=== PATIENT | male | born 1980 | race Caucasian/White ===

== ENCOUNTER 2021-05-21 08:12 | Outpatient (REF) | payer OTHER, SELFPAY ==
[2021-05-21 08:59] LABS: MANUAL DIFF FLAG NO
[2021-05-21 09:12] LABS: Basophils Percent Auto 0.7 % (0-2); Eosinophils Absolute Auto 0.2 X10*3/uL (0.0-0.4); Eosinophils Percent Auto 4.2 % (0-4); Hematocrit 42.5 % (42-52); Hemoglobin 14.2 g/dl (14.0-18.0); Imm Gran Abs Auto 0.01 X10*3/uL (0.00-0.03); Imm Gran Pct Auto 0.2 % (0.0-0.4); Lymphocytes Absolute Auto 1.4 X10*3/uL (1.2-4.9); Lymphocytes Percent Auto 32.1 % (20-40); Mean Corpuscular HGB Conc 33.4 g/dl (31.0-36.0); Mean Corpuscular Hemoglobin 29.3 pg (27.0-33.0); Mean Corpuscular Volume 87.6 fL (80-98); Mean Platelet Volume 9.9 fL (9.4-12.4); Monocytes Absolute Auto 0.4 X10*3/uL (0.1-1.2); Monocytes Percent Auto 9.4 % (2-11); Neutrophils Absolute Auto 2.4 X10*3/uL (2.0-8.3); Neutrophils Percent Auto 53.4 % (45-73); Platelet Count 198 X10*3/uL (160-400); Red Blood Count 4.85 X10*6/uL (4.60-5.80); Red Cell Distribution Width 12.2 % (11.0-16.0); White Blood Count 4.5 X10*3/uL (4.8-10.8)
[2021-05-21 09:27] LABS: Alanine Aminotransferase 16 U/L (0-40); Albumin Level 4.2 g/dL (3.5-5.0); Alkaline Phosphatase 44 U/L (39-117); Anion Gap 13 (12-20); Aspartate Amino Transferase 27 U/L (5-37); Blood Urea Nitrogen 18 mg/dL (9-16); Calcium 9.1 mg/dL (8.4-10.2); Carbon Dioxide 27 mmol/L (22-29); Chloride 104 mmol/L (96-108); Cholesterol 191 mg/dL; Estimated Glomerular Filt Rate > 60; Glucose Random 93 mg/dL (60-115); HDL Cholesterol 59 mg/dL; LDL Cholesterol Calculated 119 mg/dl; Potassium 4.7 mmol/L (3.3-5.1); Sodium 139 mmol/L (135-145); Total Protein 7.1 g/dL (6.5-8.0); Triglycerides 67 mg/dL
[2021-05-21 09:51] LABS: Prostate Specific Antigen 0.21 ng/mL (<0.05-4.0)
[2021-05-21 09:53] LABS: Reflex LDLD? No; TSH reflex Free T4 1.33 uIU/mL (0.32-4.0)
== END 2021-05-21 08:13 | disposition home or self-care (01) ==
LOC: HO.LAB 08:12
PROVIDERS: PCP Internal Medicine; Visit Provider Internal Medicine
DX: Z00.00 Encounter for general adult medical examination without abnormal findings (principal); Z12.5 Encounter for screening for malignant neoplasm of prostate
CPT/HCPCS: 36415; 80053; 80061; 84153; 84443; 85025

== ENCOUNTER → 2021-08-16 09:22 | Outpatient (REF) | payer OTHER, SELFPAY ==
--- NOTE | 2021-08-16 09:30 | CA_ITS ---
Transthoracic Echocardiogram Patient (Last, First, Middle): Eugene Guerrero F Gender: Male Date of : 1980 Age: 41 Procedure Date: 08/16/2021 Procedure Type: Transthoracic Echocardiogram Location: OP Height: 170.18 cm Weight: 76.2 kg BSA: 1.88 m2 Heart Rate: bpm BP: 120 / 80 mmHg Operational Risk Consultant: SANTA Referring MD: Chaka Gutierres III, MD Symptoms: J90 RT PLURAL EFFUSION R50.9 FEVER. GARCIA R06.00 Study Quality: Good ECG Rhythm: Sinus Conclusions: - The left ventricular systolic function is normal. The calculated ejection fraction is 61% by biplane method. - LV peak global longitudinal strain -16.4% (mildly reduced). - No obvious valvular pathology seen on this study. - There is no evidence of interatrial shunt by agitated saline. Findings Left Ventricle Normal left ventricular cavity size. There is normal left ventricular wall thickness. The left ventricular systolic function is normal. The calculated ejection fraction is 61% by biplane method. There is no evidence of regional wall motion abnormalities. Diastolic function is normal for age. LV peak global longitudinal strain -16.4% (mildly reduced). Right Ventricle Normal right ventricular cavity size and systolic function. Atria Both atria are normal in size. There is no evidence of interatrial shunt by agitated saline. Aortic Valve There is a normal trileaflet aortic valve. There is no aortic valve stenosis. There is no aortic valve regurgitation. Mitral Valve The mitral valve appears normal. There is trace mitral valve regurgitation. There is no mitral valve stenosis. Pulmonic Valve The pulmonic valve was not well visualized. Tricuspid Valve Normal tricuspid valve structure. There is trace tricuspid valve regurgitation. The pulmonary artery systolic pressure is normal. Great Vessels The aortic annulus, sinuses of valsalva, and asc aorta are normal in size. Venous The inferior vena cava is normal in size and collapses greater than 50% with inspiration. Pericardium/Pleural There is no evidence of pericardial effusion. Prior Study Comparison No prior study available for comparison. Recommendations, Care & Conclusions No obvious valvular pathology seen on this study. Measurements 2D Linear Measurements IVSd: 0.96 0.6-0.9/0.6-1.0 cm LVIDd: 4.98 3.9-5.3/4.2-5.9 cm LVIDd Index: 2.65 2.4-3.2/2.2-3.1 cm/m2 LVIDs: 3.33 2.0-3.6 cm LVPWd: 0.88 0.7-1.1 cm Ao Root: 3.60 2.1-3.5 cm LA Diam: 3.30 2.7-3.8/3.0-4.0 cm LAIDs Index: 1.76 1.5-2.3 cm/m2 LV Mass: 202.18 67-162/88-224 g LV Mass Index: 107.54 43-95/49-115 g/m2 LVOT Diam: 2.50 3.0+(-)1.3 cm 2D Systolic Function EF 4C: 59.50 >55% EF 2C: 60.60 >55% EF BiP: 61.10 >55% Mitral Valve MV Pk E: 0.84 MV PK A: 0.47 MV Decel Time: 240.00 E/A: 1.80 E'Lateral: 13.70 E'Medial: 9.25 E/E' Med: 9.00 E/E' Lat: 6.10 PHT: 70.00 MVA PHT: 3.14 Decel Mingo: 3.49 Aortic Valve AoV Pk Tristen: 1.19 AoV Mn Tristen: 0.81 AoV VTI: 0.24 AoV Pk Grad: 6.00 Aov Mn Grad: 3.00 RINA Cont.VTI: 4.40 LVOT LVOT Pk Tristen: 1.13 LVOT Mn Tristen: 0.74 LVOT VTI: 0.21 LVOT Pk Grad: 5.00 LVOT Mn Grad: 3.00 LVOT Diam: 2.50 LVOT Area: 4.91 Diastolic Function MV Pk E: 0.84 MV Pk A: 0.47 E/A: 1.80 E'Medial: 9.25 E/E' Med: 9.00 E' Laterial: 13.70 E/E' Lat: 6.10 Right Ventricle TAPSE (mm): 3.17 TVS' Tristen: 13.30 Tricuspid Valve TR Pk Tristen: 1.93 TR Pk Grad: 15.00 RA Press: 3.00 RVSP: 18.00 Great Vessels Aorta Ao Root-2D: 3.60 2.0-3.7 cm Ao Asc: 3.00 2.1-3.4 cm Ao Arch: 2.70 Updated in Other Vendor System with Status of Final Miguel Hudson MD electronically signed on 08/16/2021 1:43:32 PM with status of Final
== END ==
LOC: HO.CARD 09:22
PROVIDERS: Visit Provider Internal Medicine
DX: R06.00 Dyspnea, unspecified (principal); R50.9 Fever, unspecified; R21 Rash and other nonspecific skin eruption; J90 Pleural effusion, not elsewhere classified; L03.113 Cellulitis of right upper limb
CPT/HCPCS: 93306

== ENCOUNTER 2021-11-05 13:58 | Outpatient (REF) | payer OTHER, SELFPAY ==
--- NOTE | ~2021-11-05 | XR_ITS ---
EXAMINATION: XR CHEST CLINICAL INFORMATION: Evaluation for pleural effusion. COMPARISON: 09/13/2021 chest radiograph TECHNIQUE: 2 views of the chest were obtained. FINDINGS: Lungs grossly clear. Heart and pulmonary vessels are normal. There is very minimal residual blunting of the right costophrenic sulcus, which appears slightly improved. I suspect this reflects some residual pleural thickening. XR/XR chest 2V IMPRESSION: No significant effusion on today's study. I suspect there is been slight improvement from 09/13/2021 exam.
== END 2021-11-05 13:59 | disposition home or self-care (01) ==
LOC: HO.XRAY 13:58
PROVIDERS: PCP Internal Medicine; Visit Provider Internal Medicine
DX: J90 Pleural effusion, not elsewhere classified (principal); Z88.6 Allergy status to analgesic agent
CPT/HCPCS: 71046

== ENCOUNTER 2022-06-04 08:04 | Outpatient (REF) | payer OTHER, SELFPAY ==
[2022-06-04 08:20] LABS: MANUAL DIFF FLAG NO
[2022-06-04 08:27] LABS: Basophils Percent Auto 0.8 % (0-2); Eosinophils Absolute Auto 0.3 X10*3/uL (0.0-0.4); Eosinophils Percent Auto 6.2 % (0-4); Hemoglobin 14.1 g/dl (14.0-18.0); Imm Gran Abs Auto 0.01 X10*3/uL (0.00-0.03); Imm Gran Pct Auto 0.2 % (0.0-0.4); Lymphocytes Absolute Auto 1.8 X10*3/uL (1.2-4.9); Lymphocytes Percent Auto 35.9 % (20-40); Mean Corpuscular HGB Conc 33.6 g/dl (31.0-36.0); Mean Corpuscular Hemoglobin 29.1 pg (27.0-33.0); Mean Corpuscular Volume 86.6 fL (80.0-98.0); Mean Platelet Volume 9.9 fL (9.4-12.4); Monocytes Absolute Auto 0.4 X10*3/uL (0.1-1.2); Monocytes Percent Auto 8.6 % (2-11); Neutrophils Absolute Auto 2.4 x10*3/uL (2.0-8.3); Neutrophils Percent Auto 48.3 % (45-73); Platelet Count 187 X10*3/uL (160-400); Red Blood Count 4.85 X10*6/uL (4.60-5.80); Red Cell Distribution Width 12.9 % (11.0-16.0)
[2022-06-04 08:54] LABS: Alanine Aminotransferase 14 U/L (0-40); Albumin Level 4.2 g/dL (3.5-5.0); Alkaline Phosphatase 44 U/L (39-117); Anion Gap 10 (12-20); Aspartate Amino Transferase 21 U/L (5-37); Bilirubin Total 0.7 mg/dL (0.0-1.0); Blood Urea Nitrogen 17 mg/dL (9-16); Calcium 8.9 mg/dL (8.4-10.2); Carbon Dioxide 29 mmol/L (22-29); Chloride 105 mmol/L (96-108); Cholesterol 208 mg/dL; Estimated Glomerular Filt Rate > 60; Glucose Random 96 mg/dL (60-115); HDL Cholesterol 52 mg/dL; LDL Cholesterol Calculated 138 mg/dl; Potassium 4.9 mmol/L (3.3-5.1); Sodium 139 mmol/L (135-145); Total Protein 7.2 g/dL (6.5-8.0); Triglycerides 93 mg/dL
[2022-06-04 08:59] LABS: Reflex LDLD? No
[2022-06-04 09:07] LABS: TSH reflex Free T4 1.73 uIU/mL (0.32-4.0)
== END 2022-06-04 08:05 | disposition home or self-care (01) ==
LOC: HO.LAB 08:04
PROVIDERS: PCP Internal Medicine; Visit Provider Internal Medicine
DX: Z00.00 Encounter for general adult medical examination without abnormal findings (principal); Z12.5 Encounter for screening for malignant neoplasm of prostate
CPT/HCPCS: 36415; 80053; 80061; 84153; 84443; 85025

== ENCOUNTER 2022-07-10 10:16 | Outpatient (REF) | payer OTHER, SELFPAY ==
--- NOTE | ~2022-07-10 | XR_ITS ---
EXAMINATION: XR CHEST CLINICAL INFORMATION: Previous chest x-ray most recent October 2021 COMPARISON: None TECHNIQUE: 2 views of the chest were obtained. FINDINGS: No significant abnormality is noted involving the heart, lungs, mediastinum, bony thorax or soft tissues. XR/XR chest 2V IMPRESSION: Unremarkable examination.
== END 2022-07-10 10:17 | disposition home or self-care (01) ==
LOC: HO.XRAY 10:16
PROVIDERS: PCP Internal Medicine; Visit Provider Internal Medicine
DX: R09.89 Other specified symptoms and signs involving the circulatory and respiratory systems (principal)
CPT/HCPCS: 71046

== ENCOUNTER 2023-08-08 07:50 | Outpatient (REF) | payer OTHER, SELFPAY ==
[2023-08-08 08:20] LABS: MANUAL DIFF FLAG NO
[2023-08-08 08:52] LABS: Basophils Absolute Auto 0.1 X10*3/uL (0.0-0.2); Eosinophils Absolute Auto 0.4 X10*3/uL (0.0-0.4); Eosinophils Percent Auto 8.2 % (0-4); Hematocrit 44.3 % (42.0-52.0); Hemoglobin 14.7 g/dl (14.0-18.0); Imm Gran Abs Auto 0.01 X10*3/uL (0.00-0.03); Imm Gran Pct Auto 0.2 % (0.0-0.4); Lymphocytes Absolute Auto 1.5 X10*3/uL (1.2-4.9); Lymphocytes Percent Auto 30.8 % (20-40); Mean Corpuscular HGB Conc 33.2 g/dl (31.0-36.0); Mean Corpuscular Hemoglobin 29.3 pg (27.0-33.0); Mean Corpuscular Volume 88.4 fL (80.0-98.0); Monocytes Absolute Auto 0.4 X10*3/uL (0.1-1.2); Neutrophils Absolute Auto 2.6 x10*3/uL (2.0-8.3); Neutrophils Percent Auto 51.8 % (45-73); Platelet Count 217 X10*3/uL (160-400); Red Blood Count 5.01 X10*6/uL (4.60-5.80); Red Cell Distribution Width 12.7 % (11.0-16.0)
[2023-08-08 09:27] LABS: Cholesterol 204 mg/dL (<200); HDL Cholesterol 53 mg/dL (>40); LDL Cholesterol Calculated 135 mg/dL (<100); Triglycerides 80 mg/dL (<150)
[2023-08-08 09:31] LABS: Reflex LDLD? No
[2023-08-08 09:34] LABS: Alanine Aminotransferase 13 U/L (0-40); Albumin Level 4.2 g/dL (3.5-5.0); Alkaline Phosphatase 44 U/L (39-117); Anion Gap 17 (12-20); Aspartate Amino Transferase 25 U/L (5-37); Bilirubin Total 0.3 mg/dL (0.0-1.0); Blood Urea Nitrogen 19 mg/dL (9-16); Calcium 9.5 mg/dL (8.4-10.2); Carbon Dioxide 24 mmol/L (22-29); Chloride 105 mmol/L (96-108); Estimated Glomerular Filt Rate > 60; Glucose Random 87 mg/dL (60-115); Sodium 141 mmol/L (135-145); Total Protein 7.5 g/dL (6.5-8.0)
[2023-08-08 09:38] LABS: TSH reflex Free T4 2.01 uIU/mL (0.32-4.0)
[2023-08-08 09:46] LABS: Prostate Specific Antigen 0.23 ng/mL (<0.05-4.0)
== END 2023-08-08 07:51 | disposition home or self-care (01) ==
LOC: HO.LAB 07:50
PROVIDERS: PCP Internal Medicine; Visit Provider Internal Medicine
DX: Z00.00 Encounter for general adult medical examination without abnormal findings (principal); Z12.5 Encounter for screening for malignant neoplasm of prostate
CPT/HCPCS: 36415; 80053; 80061; 84153; 84443; 85025

== ENCOUNTER 2023-08-15 13:14 | Emergency (ER) | payer OTHER, SELFPAY ==
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
[2023-08-15 13:33] VITALS: BP 126/74; PULSE 77; RESP 16; TEMP 37.2; O2SAT 97; BMI 28.5
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
== END 2023-08-15 15:01 | disposition home or self-care (01) ==
PROVIDERS: Emergency Provider Emergency Medicine; PCP Internal Medicine
DX: S02.2XXA Fracture of nasal bones, initial encounter for closed fracture (principal); S01.21XA Laceration without foreign body of nose, initial encounter; W22.8XXA Striking against or struck by other objects, initial encounter; Y93.53 Activity, golf; Y92.39 Other specified sports and athletic area as the place of occurrence of the external cause; Y99.9 Unspecified external cause status
CPT/HCPCS: 70450; 70486; 99283; 99284

== ENCOUNTER 2023-09-29 09:51 | Outpatient (AMB) | payer OTHER, SELFPAY ==
[2023-09-29 09:55] VITALS: BP 144/77; PULSE 62; BMI 29.5
--- NOTE | 2023-09-29 09:55 | A.OFFVIS_ITS ---
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 Pt states he started having symptoms Wednesday 09/26. Pt states he feels like he always needs to defecate. Pt states even after he uses the bathroom he still feels like he needs to defecate more but doesnt. Pt denies any abdominal pain, nausea,vomiting, or diarrhea. 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 HPI Details 43 yr old patient being seen for assessm ent for acute symptoms He has tightness and pain when passing stool going on for last several days rectal pressure noted, squeezing as well stool seems more dry than normal, harder than normal, but nml size no blood in stool bowel frequency a little different as well no nausea or vomiting no weight loss he is on doxycycline for skin infection father had CRC aged 50 , and he had colonoscopy aged 39 whihc was normal PMH: plerual effusion PSH: decortication of lung, colonoscopy 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, 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, no drugs, no alcohol FH: father with CRC and heart disease ROS: Constitutional : No Weight loss, No Fever, No Chills ENT/Mouth : No sore throat, No Rhinorrhea Eyes: No Swelling, No Redness Cardiovascular : No Chest Pain, No SOB, No Edema Respiratory : No Cough, No Sputum, No Wheezing Gastrointestinal : see HPI Genitourinary : NO Dysuria, No Urinary Frequency, No Hematuria, No Urgency Musculoskeletal : No joint pain, No Myalgias, No Joint Swelling Skin : No Skin Lesions, No rash Neuro : No Weakness, No Numbness, No Dizziness, No Headache Psych : No Anxiety/Panic, No Depression Heme/Lymph: No Bruising, No Lymphadenopathy Endocrine : No Polyuria, No Polydipsia All other systems reviewed and are negative. EXAM: GENERAL: The patient is well developed and nontoxic. VITAL SIGNS:see workflow HEENT: Nonicteric sclerae, PERRLA, EOMI. Oropharynx clear. Moist mucous membranes. Conjunctivae appear well perfused. No thyroid mass. CHEST: Chest wall is nontender. HEART: Regular rate and rhythm without murmurs. LUNGS: Clear to auscultation bilaterally. ABDOMEN: Soft, positive bowel sounds, nontender, no organomegaly.no flank tenderness SKIN: No rash, no excessive bruising, petechiae, or purpura. NEUROLOGIC: Cranial nerves II-XII intact without motor/sensory deficit. Psych; nml A/P: 1/ Tenesmus and altered bowel habit, FH of CRC ddx; low lying rectal lesion, anal fissure, proctitis Plan: 1/ Labs recent in Jul were normal, but given FH recommend colonoscopy,--send [facility] Surgical History (Updated 09/29/23 @ 10:03 by Bri Mckeon MA) Hx of colonoscopy Social History (Updated 09/29/23 @ 09:59 by Bri Mckeon MA) Household Members: Family Housing: House Alcohol intake: current Alcohol intake frequency: 0-2 drinks per day Alcohol ty pe: beer Patient Tobacco Use Status: Never used Tobacco Use of substances other than those prescribed or required for medical reasons: Yes Substance Use Type: Marijuana Physical Exam Vital Signs: Last Vital Signs Pulse 62 09/29/23 09:55 BP 144/77 H 09/29/23 09:55 BMI result Body Mass Index 29.5 Assessment & Plan Assessment & Plan (1) Altered bowel habits: Code(s): R19.4 - Change in bowel habit Plan: colonoscopy (2) Tenesmus (rectal): Code(s): R19.8 - Other specified symptoms and signs involving the digestive system and abdomen Plan: colonoscopy Plan colonoscopy Medications: New sodium,potassium,mag sulfates 17.5-3.13-1.6 gram ([facility] Bowel Prep Kit) DILUTE; drink 1/2 at 6-8 pm and half at 11 PM- 1AM 354 mL 0RF Coding Level of Care Code New Pt Level 4 (54791) Diagnoses Altered bowel habits R19.4 Tenesmus (rectal) R19.8
== END 2023-09-29 10:31 | disposition home or self-care (01) ==
PROVIDERS: PCP Internal Medicine; Visit Provider Internal Medicine Gastroenterology
DX: R19.4 Change in bowel habit (principal); R19.8 Other specified symptoms and signs involving the digestive system and abdomen
CPT/HCPCS: 99204

== ENCOUNTER → 2023-09-29 09:51 | Outpatient (BNVA) | payer OTHER, SELFPAY | PROVIDERS: PCP Internal Medicine; Visit Provider Internal Medicine Gastroenterology ==

== ENCOUNTER 2023-10-08 12:03 | Day surgery (SDC) | payer OTHER, SELFPAY ==
--- NOTE | 2023-10-07 09:56 | HO.ANESPROP2 ---
Documented by User: Dina Schumacher NP 10/07/23 09:57 HPI - Anesthesia Eval Consult details Narrative: 43yo M for Colonoscopy PMFSH Active Problems Active Problems: All Active Problems (Updated 09/29/23 @ 10:26 by Marcellus Aparicio MD) Tenesmus (rectal) (Acute) Altered bowel habits (Acute) Surgical History Surgical History Hx of colonoscopy Social History Social History (Updated 09/29/23 @ 09:59 by Bri Mckeon MA) Household Members: Family Housing: House Alcohol intake: current Alcohol intake frequency: 0-2 drinks per day Alcohol type: beer Patient Tobacco Use Status: Never used Tobacco Use of substances other than those prescribed or required for medical reasons: Yes Substance Use Type: Marijuana Substance Use Type Other:: marijuana gummy occas Are you DNR?: No Advance Directives: No Advance Directives Information Provided: Yes Meds Allergies Allergy/AdvReac Type Severity Reaction Status Date / Time hydrocodone Allergy Hives Verified 09/29/23 09:57 Home Medications Medication Instructions Recorded Confirmed Last Taken Type doxycycline monohydrate 100 mg 100 mg PO BID 09/29/23 Unknown History tablet Exam Pertinent Lab Results Pertinent Lab Results: Laboratory Tests 08/08/23 08:19 WBC 5.0 Hgb 14.7 Hct 44.3 Plt Count 217 Sodium 141 Potassium 5.0 Chloride 105 Carbon Dioxide 24 BUN 19 H Creatinine 0.93 Assessment and Plan Assessment Anesthesia Assessment: Chart Reviewed Documented by User: Luc Mcintyre MD 10/08/23 13:08 PMFSH Family History Family history of problems with anesthesia: No Surgical History Surgical History Hx of colonoscopy History of Problems with Anesthesia: No Social History Social History (Updated 09/29/23 @ 09:59 by Bri Mckeon MA) Household Members: Family Housing: House Alcohol intake: current Alcohol intake frequency: 0-2 drinks per day Alcohol type: beer Patient Tobacco Use Status: Never used Tobacco Use of substances other than those prescribed or required for medical reasons: Yes Substance Use Type: Marijuana Substance Use Type Other:: marijuana gummy occas Are you DNR?: No Advance Directives: No Advance Directives Information Provided: Yes Meds Allergies Allergy/AdvReac Type Severity Reaction Status Date / Time hydrocodone Allergy Hives Verified 09/29/23 09:57 Home Medications Medication Instructions Recorded Confirmed Last Taken Type doxycycline monohydrate 100 mg 100 mg PO BID 09/29/23 Unknown History tablet Exam Airway Mallampati Class: II TM Dist: >3cm Neck ROM: Full Assessment and Plan Assessment Anesthesia Assessment: Anesthesia Plan Discussed Final Anesthetic Review Family History of Problems with Anesthesia: No History of Problems with Anesthesia: No NPO: Yes ASA Class: II Final Preanesthetic Review: No Changes in Pt Med Stat, Meds/Allgs Chart Reviewed, Consent Obtained/Reviewed and Anes Risks/Benef Reviewed Patient Risk: Low Procedure Risk: Low Anesthetic Plan Anesthetic Plan: MAC: Disposition: Standard PACU
[2023-10-08 12:52] VITALS: BMI 28.6
--- NOTE | 2023-10-08 12:55 | MHC.SHP ---
Pre-Procedural Eval Section A Date of Service: 10/08/23 The patient is an INPATIENT: No The History & Physical has been completed within 30 days and I have reviewed it.: No Section B Chief Complaint: Other specified symptoms and signs involving the d Allergies: Allergies Allergy/AdvReac Type Severity Reaction Status Date / Time hydrocodone Allergy Hives Verified 09/29/23 09:57 Plan Diagnosis/Plan: Unchanged I have reviewed the history and physical and performed a pertinent physical examination on my patient. No changes have occurred unless specified. Time Spent With Patient Time: Total time managing care of this patient today ____ minutes.
[2023-10-08 12:58] VITALS: BMI 28.6
[2023-10-08 13:29] VITALS: BP 131/78; PULSE 58; RESP 16; TEMP 36.6; O2SAT 99
[2023-10-08] MEDS: Lactated Ringers 1,000 ML 100 ML IVCONT (13:34)
--- NOTE | 2023-10-08 13:50 | P.OP_ITS ---
Operative Note Operative Note Date of Service: 10/08/23 Narrative: Operative Information Procedure Description: Colonoscopy Indication: altered bowel habit Anesthesia: MAC COLONOSCOPY Instrument: Olympus variable stiffness pediatric scope 190L Colonoscopy Monitoring: Vital signs and clinical assessment, continuous EKG monitoring, Pulse oximetry, Carbon Dioxide monitoring and blood pressure monitoring were done throughout the procedure. Colon withdrawal time was 12 minutes. Procedure: The patient was placed in the left lateral decubitis position and pre-procedure medications were administered. After a digital rectal examination of the ano-rectum, the video colonoscope was inserted into the rectum and advanced through the colon to the cecum/TI. The colonoscope was slowly withdrawn in a retrograde panoramic fashion and the colon mucosa was carefully examined including a retroflexed view of the rectum. Findings and interventions are described below. Procedure Difficulty: easy Findings: Terminal Ileum-normal Cecum: 4-5 mm sessile polyp removed with biopsy forcpes Ascending Colon: 6-7 mm sessile polyp removed with cold snare Transverse Colon -normal Descending Colon:normal Sigmoid Colon: normal Rectum: Retroflexion with inflammed moderate sized internal hemorrhoids, grade I Anorectum - normal Colon preparation: Griffin Bowel Preparation Scale Right colon; 3 Transverse colon: 3 Left colon; 3 (0 = Unprepared colon segment with mucosa not seen due to solid stool that cannot be cleared. 1 = Portion of mucosa of the colon segment seen, but other areas of the colon segment not well seen due to staining, residual stool and/or opaque liquid. 2 = Minor amount of residual staining, small fragments of stool and/or opaque liquid, but mucosa of colon segment seen well. 3 = Entire mucosa of colon segment seen well with no residual staining, small fr agments of stool or opaque liquid) Impression and Post Procedure Diagnosis: polyps internal hemorrhoids Plan: High fiber diet leaflet Avoid straining at stool, epsom salts and sitz bath, anusol supps or cream Repeat Colonoscopy in 5 years due to polyps and FH of CRC or earlier if clinically indicated Above findings were reviewed with the patient and relevant handouts were provided if indicated.
[2023-10-08 14:30] VITALS: BP 108/63; PULSE 76; RESP 16; TEMP 37; O2SAT 98
[2023-10-08 14:45] VITALS: BP 119/71; PULSE 71; RESP 18; TEMP 37; O2SAT 97
== END 2023-10-08 15:07 | disposition home or self-care (01) ==
PROVIDERS: PCP Internal Medicine; Visit Provider Internal Medicine Gastroenterology
PROC: 0DJD8ZZ Inspection of Lower Intestinal Tract, Via Natural or Artificial Opening Endoscopic (ICD-10-PCS; CPT 45378; principal; 2023-10-08 13:50)
DX: D12.0 Benign neoplasm of cecum (principal); D12.2 Benign neoplasm of ascending colon; K64.0 First degree hemorrhoids; R19.4 Change in bowel habit; R19.8 Other specified symptoms and signs involving the digestive system and abdomen; F12.90 Cannabis use, unspecified, uncomplicated
CPT/HCPCS: 45385; 45380; 88305; J2704

== ENCOUNTER → 2023-10-08 12:03 | Outpatient (BNV) | payer OTHER, SELFPAY | PROVIDERS: PCP Internal Medicine; Visit Provider Internal Medicine Gastroenterology | DX: R19.4 Change in bowel habit (principal); D12.0 Benign neoplasm of cecum; D12.2 Benign neoplasm of ascending colon; K64.0 First degree hemorrhoids | CPT/HCPCS: 45380; 45385 ==

== ENCOUNTER 2023-11-11 10:18 | Emergency (ER) | payer OTHER, SELFPAY ==
--- NOTE | ~2023-11-11 | XR_ITS ---
EXAMINATION: XR CHEST CLINICAL INFORMATION: Chest pain. COMPARISON: July 10, 2022 TECHNIQUE: PA and lateral chest. FINDINGS: There is a stable opacity seen at the right lung base which may be related to some pleural-parenchymal scarring. There remains some blunting of the right costophrenic angle also likely related to pleural-parenchymal disease with no significant effusion identified. Heart normal size. No evidence of pulmonary edema. No pneumothorax. XR/XR chest 2V IMPRESSION: No acute disease.
--- NOTE | 2023-11-11 10:30 | ECG_ITS ---
Test Reason : cp Blood Pressure : / mmHG Vent. Rate : 054 BPM Atrial Rate : 054 BPM P-R Int : 144 ms QRS Dur : 108 ms QT Int : 404 ms P-R-T Axes : 027 043 030 degrees QTc Int : 383 ms Sinus bradycardia Otherwise normal ECG No previous ECGs available Referred By: Generic ED Physician Electronically Signed By:Woody Beckwith
[2023-11-11 11:10] VITALS: BP 135/88; PULSE 60; RESP 18; TEMP 36.7; O2SAT 97; BMI 30.8
--- NOTE | 2023-11-11 11:10 | ED.GENADULT ---
HPI - General Adult General Chief complaint: Chest Pain Stated complaint: Chest tightness 1 wk/headache Time Seen by Provider: 11/11/23 13:57 Source: patient Mode of arrival: ambulatory Limitations: no limitations History of Present Illness HPI narrative: This is a 43-year-old male presenting to the emergency department with complaints of chest discomfort in the substernal region, nonradiating, reports this started on , that day he also had nausea and vomiting in just did not feel well. Has also been having intermittent mild headaches, without visual disturbances, dizziness or weakness. Patient reports both the chest discomfort and headaches are intermittent in nature not constant. Denies sick contacts. Denies shortness of breath, nausea, vomiting, abdominal pain, diarrhea, visual disturbances, dizziness and weakness at this time. NIH stroke scale 0. Related Data Home Medications Medication Instructions Recorded Confirmed doxycycline monohydrate 100 mg 100 mg PO BID 09/29/23 tablet Previous Rx's Medication Instructions Recorded sodium,potassium,mag sulfates 17.5 See Rx Instructions PO .COMPLEX 09/29/23 gram-3.13 gram-1.6 gram oral soln #354 mL (Suprep Bowel Prep Kit) ketorolac 10 mg tablet 10 mg PO TID PRN pain 5 days #15 11/11/23 tabs Allergies Allergy/AdvReac Type Severity Reaction Status Date / Time hydrocodone Allergy Hives Verified 09/29/23 09:57 Review of Systems Review of Systems: Constitutional : No Weight loss, No Fever, No Chills, No Fatigue, No Malaise ENT/Mouth : No sore throat, No Rhinorrhea Eyes: No Eye Pain, No Swelling, No Redness Cardiovascular : + Chest Pain, No SOB, No Dyspnea on Exertion, No Orthopnea, No Edema, No Palpitations Respiratory : No Cough, No Sputum, No Wheezing Gastrointestinal : No Nausea, No Vomiting, No Diarrhea, No Constipation, No abdominal Pain, No Hematochezia, No Melena Genitourinary : No Dysuria, No Urinary Frequency, No Hematuria, Musculoskeletal : No joint pain, No Myalgias, No Joint Swelling Skin : No Skin Lesions, No rash Neuro : No Weakness, No Numbness, No Dizziness, No Headache Psych : No Anxiety/Panic, No Depression All other systems reviewed and are negative Yes all other systems are reviewed and are negative PMFSH Past Medical History Onset Date is defined in the Problem List Problems that require an onset date and time if occurred within 24 hrs of arrival to the ED Aortic Dissection and Rupture; Neurologic impairment; Cardiopulmonary Arrest; Endotracheal Intubation; Insertion or Replacement of Mechanical Circulatory Assist Device Surgical History Hx of colonoscopy Social History Social History (Updated 09/29/23 @ 09:59 by Bri Mckeon MA) Household Members: Family Housing: House Alcohol intake: current Alcohol intake frequency: 0-2 drinks per day Alcohol type: beer Patient Tobacco Use Status: Never used Tobacco Substance Use Type: Marijuana Advance Directives: No Physical Exam ED Vital Signs: Vital Signs - 24 hr 11/11/23 11:10 Temperature 98.1 F Pulse Rate 60 Respiratory Rate 18 Blood Pressure 135/88 Pulse Oximetry 97 Oxygen Delivery Method Room Air BMI result Body Mass Index 30.8 Course Course Course Narrative: This is an RME: Additional HPI, ROS, PE not included below will be deferred to primary provider. This is a [id number]-male, with a no medical history, presenting to the emergency department with complaints of chest pain x 1 week. Chest pain is constant. He vomited on sanjana, and next day had chest pain. Had had midsternal chest pain intermittently today. No fevers, cough, SOB. Plan: Labs, EKG, CXR Reevaluation(s) Reevaluation #1: CBC unremarkable appears to be around patient's baseline he has had a leukopenia in the past. Chemistry no acute findings. Troponin negative x2. History and physical exam not consistent with pulmonary embolism, patient is PERC negative. No need for CTA. Flu/COVID/RSV negative. X-ray of chest unremarkable. Educated patient on diagnosis and treatment plan, answered all question, patient verbalizes understanding. At this time patient will be discharged home, advised to return with new or worsening symptoms. Educated on worrisome signs and symptoms and when to return. At this time I feel comfortable discharge home. Time: 15:46 Medical Decision Making Medical Decision Making [facility] Narrative: [id number] 43-year-old male presents with substernal chest pressure/discomfort which started on Day. Physical examination benign. This is likely viral illness versus noncardiac related chest pain. Unlikely ACS, PE, dissection, acute respiratory distress, pneumonia. Plan at this time labs, imaging, viral test. Differential Diagnosis Differential Diagnoses: The differential diagnosis associated with the presentation includes This is likely viral illness versus noncardiac related chest pain. Unlikely ACS, PE, dissection, acute respiratory distress, pneumonia. Admission/Observation Consideration of admission/observation: Escalation of care including admission/observation considered unlikely Lab Data MDM Lab Attestation statement: I reviewed the patient's lab results. 11/11/23 12:06 11/11/23 12:06 Labs: Lab Results 11/11/23 11/11/23 Range/Units 12:06 14:17 WBC 4.7 L (4.8-10.8) X10*3/uL RBC 5.12 (4.60-5.80) X10*6/uL Hgb 15.1 (14.0-18.0) g/dl Hct 44.5 (42.0-52.0) % MCV 86.9 (80.0-98.0) fL MCH 29.5 (27.0-33.0) pg MCHC 33.9 (31.0-36.0) g/dl RDW 12.4 (11.0-16.0) % Plt Count 198 (160-400) X10*3/uL MPV 9.5 (9.4-12.4) fL Immature Gran % (Auto) 0.0 (0.0-0.4) % Neut % (Auto) 65.5 (45-73) % Lymph % (Auto) 24.8 (20-40) % [place] % (Auto) 6.8 (2-11) % Eos % (Auto) 2.3 (0-4) % Baso % (Auto) 0.6 (0-2) % Lymph # (Auto) 1.2 (1.2-4.9) X10*3/uL [place] # (Auto) 0.3 (0.1-1.2) X10*3/uL Eos # (Auto) 0.1 (0.0-0.4) X10*3/uL Baso # (Auto) 0.0 (0.0-0.2) X10*3/uL Abs Immat Gran (auto) 0.00 (0.00-0.03) X10*3/uL Absolute Neuts (auto) 3.1 (2.0-8.3) x10*3/uL Absolute Nucleated RBC 0.000 (0.0-0.012) X10*3/uL Nucleated RBC % (auto) 0.0 (0.0-0.2) /100WBC Sodium 142 (135-145) mmol/L Potassium 4.1 (3.3-5.1) mmol/L Chloride 104 (96-108) mmol/L Carbon Dioxide 29 (22-29) mmol/L Anion Gap 13 (12-20) BUN 12 (9-16) mg/dL Creatinine 0.89 (0.5-1.4) mg/dL Estim Creat Clear Calc 109.2 Estimated GFR > 60 Random Glucose 96 (60-115) mg/dL Calcium 9.3 (8.4-10.2) mg/dL Total Bilirubin 0.6 (0.0-1.0) mg/dL Direct Bilirubin 0.2 (0.0-0.5) mg/dL AST 22 (5-37) U/L ALT 14 (0-40) U/L Alkaline Phosphatase 47 (39-117) U/L Troponin I High Sens 6.1 < 2.7 D (<3.5-35.0) ng/L Total Protein 7.9 (6.5-8.0) g/dL Albumin 4.5 (3.5-5.0) g/dL Influenza Type A (PCR) NEGATIVE (Negative) Influenza Type B (PCR) NEGATIVE (Negative) RSV RNA Qual (PCR) NEGATIVE (Negative) SARS-CoV-2 RNA (RT-PCR) NEGATIVE (Negative) Independent Interpretation I performed an independent interpretation of an: EKG (Ventricular rate of 54, TX normal, QRS normal, QT/QTC normal, EKG sinus bradycardia no ST elevations or inversions concerning for acute ischemia) and Plain X-Ray (XR/XR chest 2V IMPRESSION: No acute disease.) Radiology Impression Discussion of test interpretation with radiology: I have reviewed the radiologist's reading. Discharge Plan Discharge Clinical Impression: Atypical chest pain, Viral illness, Headache Patient Disposition: Home, Self-Care Instructions: Chest Pain (ED), Acute Headache (ED), Viral Syndrome (ED) Additional Instructions: Take your medications as prescribed. If you were prescribed antibiotics today, it is important that you take your medication to their entirety, do not skip any doses, do not finish them early. Follow-up with your primary care provider this week. Return to the emergency department with new or worsening symptoms. Such as fevers, chills, chest pain, shortness of breath, nausea, vomiting, dizziness, headache, vision changes, lethargy In case of emergency call 911 Toradol has been sent to your pharmacy, you tolerated this well in the department. Please take this as prescribed do not take this with ibuprofen, or other NSAIDs, do not mix this with alcohol. Side effects of this medication including increased risk for bleeding and possible kidney injury. Prescriptions: New ketorolac 10 mg tablet 10 mg PO TID PRN (Reason: pain) 5 Days Qty: 15 0RF No Action doxycycline monohydrate 100 mg tablet 100 mg PO BID sodium,potassium,mag sulfates [Suprep Bowel Prep Kit] 17.5-3.13-1.6 gram recon soln See Rx Instructions PO .COMPLEX Qty: 354 0RF Rx Instructions: DILUTE; drink 1/2 at 6-8 pm and half at 11 PM- 1AM Referrals: Chaka Gutierres III, MD [Primary Care Provider] - 2 days
[2023-11-11 12:10] LABS: MANUAL DIFF FLAG NO
[2023-11-11 12:12] LABS: Basophils Percent Auto 0.6 % (0-2); Eosinophils Absolute Auto 0.1 X10*3/uL (0.0-0.4); Eosinophils Percent Auto 2.3 % (0-4); Hematocrit 44.5 % (42.0-52.0); Hemoglobin 15.1 g/dl (14.0-18.0); Lymphocytes Absolute Auto 1.2 X10*3/uL (1.2-4.9); Lymphocytes Percent Auto 24.8 % (20-40); Mean Corpuscular HGB Conc 33.9 g/dl (31.0-36.0); Mean Corpuscular Hemoglobin 29.5 pg (27.0-33.0); Mean Corpuscular Volume 86.9 fL (80.0-98.0); Mean Platelet Volume 9.5 fL (9.4-12.4); Monocytes Absolute Auto 0.3 X10*3/uL (0.1-1.2); Monocytes Percent Auto 6.8 % (2-11); Neutrophils Absolute Auto 3.1 x10*3/uL (2.0-8.3); Neutrophils Percent Auto 65.5 % (45-73); Platelet Count 198 X10*3/uL (160-400); Red Blood Count 5.12 X10*6/uL (4.60-5.80); Red Cell Distribution Width 12.4 % (11.0-16.0); White Blood Count 4.7 X10*3/uL (4.8-10.8)
[2023-11-11 12:27] LABS: Alanine Aminotransferase 14 U/L (0-40); Albumin Level 4.5 g/dL (3.5-5.0); Alkaline Phosphatase 47 U/L (39-117); Anion Gap 13 (12-20); Aspartate Amino Transferase 22 U/L (5-37); Bilirubin Direct 0.2 mg/dL (0.0-0.5); Bilirubin Total 0.6 mg/dL (0.0-1.0); Blood Urea Nitrogen 12 mg/dL (9-16); Calcium 9.3 mg/dL (8.4-10.2); Carbon Dioxide 29 mmol/L (22-29); Chloride 104 mmol/L (96-108); Creatinine Clr Calc Pharmacy 109.2; Estimated Glomerular Filt Rate > 60; Glucose Random 96 mg/dL (60-115); Potassium 4.1 mmol/L (3.3-5.1); Sodium 142 mmol/L (135-145); Total Protein 7.9 g/dL (6.5-8.0)
[2023-11-11 12:48] LABS: Influenza A PCR NEGATIVE (Negative); Influenza B PCR NEGATIVE (Negative); Resp Syncy Virus RNA Qual PCR NEGATIVE (Negative); SARS COV2 PCR INHOUSE NEGATIVE (Negative)
[2023-11-11 12:57] LABS: Troponin-I High Sensitivity 6.1 ng/L (<3.5-35.0)
[2023-11-11 14:46] LABS: Troponin-I High Sensitivity < 2.7 ng/L (<3.5-35.0)
[2023-11-11] MEDS: Ketorolac Tromethamine 30 MG/ML VIAL IM (15:56)
== END 2023-11-11 16:09 | disposition home or self-care (01) ==
PROVIDERS: Physician Assistant; Physician Assistant Medical; Emergency Provider Emergency Medicine; PCP Internal Medicine
DX: R07.89 Other chest pain (principal); B34.9 Viral infection, unspecified; R51.9 Headache, unspecified; Z20.822 Contact with and (suspected) exposure to COVID-19; Z20.828 Contact with and (suspected) exposure to other viral communicable diseases
CPT/HCPCS: 0241U; 36415; 71046; 80048; 80076; 84484; 85025; 93005; 96372; 99283; 99284; J1885

== ENCOUNTER → 2023-11-11 10:30 | Outpatient (BNV) | payer OTHER, SELFPAY | PROVIDERS: PCP Internal Medicine; Visit Provider Internal Medicine Cardiovascular Disease | DX: R07.9 Chest pain, unspecified (principal) | CPT/HCPCS: 93010 ==

== ENCOUNTER 2023-11-27 12:05 | Emergency (ER) | payer OTHER, SELFPAY ==
--- NOTE | ~2023-11-27 | CT_ITS ---
EXAMINATION: CT ANGIOGRAM OF THE CHEST WITH AND WITHOUT CONTRAST (CT PULMONARY ANGIOGRAM FOR PE) CLINICAL INFORMATION: Reason for Exam cp and elevated d dimer COMPARISON: Chest radiograph 11/11/2023 TECHNIQUE: Prior to contrast administration, noncontrast localization images were obtained. Subsequently, multidetector volumetric imaging was performed from the thoracic inlet to below the diaphragms following the administration of 65 mL Omnipaque 350 intravenous contrast. No contrast reaction reported Sagittal, coronal, and MIP oblique sagittal reformatted images were obtained on the CT workstation, uploaded to PACS, and reviewed. This CT examination was performed using dose optimization techniques as appropriate, variously including the following: *Automated exposure control *Adjustment of mA and/or kV according to patient size (this includes techniques or standardized protocols for targeted exams where dose is matched to indication/reason for exam; i.e. extremities or head) *Use of iterative reconstruction technique Total exam dose-length product 342 mGy-cm FINDINGS: QUALITY OF STUDY/CONTRAST BOLUS: Satisfactory. PULMONARY ARTERIES: No pulmonary emboli. THORACIC AORTA: No aneurysm. LUNGS: A 1 cm irregular nodular opacity in the right lung base, in the region that was previously obscured by consolidation. Few other small solid pulmonary nodules largest a 4 mm solid left lower lobe pulmonary nodule, 7:361, stable from 2020 therefore likely benign. Calcified left upper lobe granuloma. PLEURA: No pleural effusion. MEDIASTINUM: No cardiomegaly. Aorta and pulmonary artery are normal in caliber. No mediastinal lymphadenopathy. No hilar lymphadenopathy. CORONARY ARTERY CALCIFICATION: No coronary artery calcification appreciated. CHEST WALL/AXILLA: No axillary or internal mammary lymphadenopathy. Asymmetric fluid in the left prepectoral soft tissues, incompletely evaluated consider correlation with physical exam. UPPER ABDOMEN: Numerous hepatic cysts and hypodensities too small to characterize. OSSEOUS STRUCTURES: Unremarkable. CT/CT angio chest PE protocol IMPRESSION: * No pulmonary embolism. * A 1 cm irregular nodular opacity in the right lung base, in the region that was previously obscured by consolidation and therefore possibly reflective of chronic scar, however warrants continued surveillance given the rounded and irregular morphology to ensure no underlying neoplastic process. Per the 2017 revised Fleischner Society guidelines, recommend consideration of CT at 3 months, PET/CT, or tissue sampling to assess for possible neoplasm. VTE: negative. The findings and recommendations were discussed with Keven Ryan MD by telephone at 11/27/2023 6:35 PM and it was ascertained that the content and urgency of the report was understood at the time of direct communication.
--- NOTE | 2023-11-27 12:13 | ECG_ITS ---
Test Reason : pain Blood Pressure : / mmHG Vent. Rate : 060 BPM Atrial Rate : 060 BPM P-R Int : 144 ms QRS Dur : 100 ms QT Int : 402 ms P-R-T Axes : 053 039 023 degrees QTc Int : 402 ms Normal sinus rhythm Normal ECG When compared with ECG of 11-NOV-2023 10:33, No significant change was found Referred By: Devonte Flynn Electronically Signed By:FREDDIE MCARTHUR
[2023-11-27 12:34] VITALS: BP 146/92; PULSE 69; RESP 18; TEMP 37.1; O2SAT 98; BMI 29.5
--- NOTE | 2023-11-27 12:38 | ED_ITS ---
HPI - Chest Pain General Chief Complaint: Chest Pain Stated Complaint: Chest pain Time Seen by Provider: 11/27/23 13:11 Source: patient Mode of arrival: ambulatory Limitations: no limitations History of Present Illness HPI narrative: [age] year male came in for evaluation of chest pain. Chest pain started about 2 weeks ago feels like burning sensation to the epigastric and lower chest area with no radiation, sometimes feels like chest tightness, pain has been constant for the past 2 weeks getting worse since yesterday, no clear aggravating factor or relieving factor. Pain started 2 weeks ago after was exposed to his son with stomach bug patient was vomiting for couple days that resolved now but left him with burning sensation to the epigastric area and lower chest area pain since then is constant and worse since yesterday. Patient declined cigarette smoking, drug abuse only take edible marijuana occasionally, no family history of young , no family history of [place] at young age (father at age of 69 from heart attack). Patient also is complaining of painful bump under left armpit, no fever, no chills. No recent travel, lower extremity swelling or tenderness, no history of pulmonary embolism, no family history of DVT or PE. Related Data Home Medications Medication Instructions Recorded Confirmed doxycycline monohydrate 100 mg 100 mg PO BID 09/29/23 tablet Previous Rx's Medication Instructions Recorded sodium,potassium,mag sulfates 17.5 See Rx Instructions PO .COMPLEX 09/29/23 gram-3.13 gram-1.6 gram oral soln #354 mL (Suprep Bowel Prep Kit) ketorolac 10 mg tablet 10 mg PO TID PRN pain 5 days #15 11/11/23 tabs omeprazole 40 mg capsule,delayed 40 mg PO DAILY #20 caps 11/27/23 release Allergies Allergy/AdvReac Type Severity Reaction Status Date / Time hydrocodone Allergy Hives Verified 11/27/23 12:34 Review of Systems 2 Review of Systems: All other systems are reviewed and are negative Constitutional: Reports as per HPI and Reports no additional constitutional complaints Eyes: Reports as per HPI and Reports no additional eye complaints Reports system reviewed and no additional complaints, except as documented Cardiovascular: Reports as per HPI and Reports no additional cardiovascular complaints Respiratory: Reports as per HPI and Reports no additional respiratory complaints Gastrointestinal: Reports as per HPI and Reports no additional gastrointestinal complaints Genitourinary: Reports no additional female genitourinary complaints Musculoskeletal: Reports no additional musculoskeletal complaints Skin/Breast: Reports system reviewed and no additional complaints, except as docu Psychiatric: Reports no additional psychiatric complaints Endocrine: Reports no additional endocrine complaints Hematologic/Lymphatic: Reports no additional hematologic/lymphatic complaints Allergic/Immunologic: Reports no additional allergic/immunologic complaints Reports system reviewed and no additional complaints, except as documented and Reports Abnormal speech present PMFSH Past Medical History Onset Date is defined in the Problem List Problems that require an onset date and time if occurred within 24 hrs of arrival to the ED Aortic Dissection and Rupture; Neurologic impairment; Cardiopulmonary Arrest; Endotracheal Intubation; Insertion or Replacement of Mechanical Circulatory Assist Device Surgical History Hx of colonoscopy Social History Social History Household Members: Family Housing: House Alcohol intake: current Alcohol intake frequency: 0-2 drinks per day Alcohol type: beer Patient Tobacco Use Status: Never used Tobacco Smoked in Last 30 Days: No Use of substances other than those prescribed or required for medical reasons: Yes Substance Use Type: Marijuana Advance Directives: No Advance Directives Information Provided: No Physical Exam 2 Vital Signs: Vital Signs: Last Vital Signs Temp 98.7 F 11/27/23 12:34 Pulse 71 11/27/23 17:05 Resp 18 11/27/23 17:05 BP 126/70 11/27/23 14:40 Pulse Ox 96 11/27/23 17:05 O2 Del Method Room Air 11/27/23 17:05 BMI result Body Mass Index 29.5 Vital signs have been reviewed and appear to be correct. Blood pressure elevated. Heart rate normal. Respiratory rate normal. Temperature normal. Oxygen saturation normal. Appearance: Alert. Oriented X3. No acute distress. Head: Normal external exam. Normocephalic. Atraumatic. No Abbasi signs noted. No raccoon eyes noted Eyes: PERRLA. EOMI. Conjunctiva and sclera normal. Eyelids normal. ENT: TM's Normal. Pharynx normal. Uvula midline. Moist mucous membranes. No trismus noted. No drooling noted. No muffled voice noted. Neck: Normal inspection. Neck supple. FROM. No adenopathy. Thyroid Normal. No meningeal signs. No neck mass noted. CVS: Normal heart rate and rhythm. Heart sound normal. No murmurs noted. Pulses normal throughout. Respiratory: No respiratory distress. Painless inspiration. Breath sounds normal. No wheezes/rales/rhonchi noted. Chest nontender. No accessory muscle usage noted or decreased air movement noted. Abdomen: Soft and nontender. Bowel sounds normal in all 4 quadrants. No distention noted. No organomegaly noted. No visible injury noted. Back: No CVA tenderness. Full range of motion noted. Skin: Skin warm and dry. Normal skin color. Normal skin turgor. No rashes/lesions/lacerations noted. Extremities: Left axillary abscess with fluctuation, and redness. Neuro: Oriented X 3. Cranial nerve exam: II-XII are grossly intact No motor deficit. No sensory deficit. Reflexes normal. Course Course Course Narrative: RME- 43-year-old male presents for evaluation of epigastric pain that radiates to his chest. He was here 2 weeks ago for similar. Plan for labs, EKG was already completed. Reevaluation(s) Reevaluation #1: 43-year-old male presented with chest pain started 18 days ago after vomiting, cardiac workup is unremarkable, CT is showing incidental irregular 1 cm right lung nodule. ACS is not likely given low HEART score. Start the patient on Prilosec and follow-up with GI for possible upper endoscopy. To follow-up with Dr. Trenton Sánchez for pulmonary nodule. Time: 18:55 Medications Administered Discontinued Medications Generic Name Dose Route Start Last Admin Trade Name Freq PRN Reason Stop Dose Admin Al Hydroxide/Mg Hydroxide 30 ml 11/27/23 13:26 11/27/23 13:59 Magnesium Hydrox/Alum Hydrox 30 Ml Oral.Susp PO 11/27/23 13:27 30 ml ONCE ONE Administration Famotidine 20 mg 11/27/23 13:26 11/27/23 13:56 Famotidine/Pf 20 Mg/2 Ml Vial IVPUSH 11/27/23 13:27 20 mg ONCE ONE Administration Sodium Chloride 1,000 mls @ 999 mls/hr 11/27/23 13:26 11/27/23 15:00 Ns IV 11/27/23 14:26 Infused .Q1H1M ONE Infusion Iohexol 65 ml 11/27/23 15:42 11/27/23 15:43 Iohexol 350 Mg/Ml 100 Ml Infus..Btl IV 11/27/23 15:43 65 ml ONCE ONE Administration Procedures Abscess I/D Site: upper extremity (Left axillary area) Side (if applicable): left Local Anesthetic: lidocaine 1% Amount of anesthesia used (mL): 5 Technique: incised with blade (Size 11) Amount of fluid expressed (mL): 5 Sent for culture/gram staining?: No Irrigation: No Packing used?: none Medical Decision Making Differential Diagnosis Differential Diagnoses: The differential diagnosis associated with the presentation includes (ACS, pulmonary embolism, pleural effusion, pneumonia, chest wall pain, gastritis, esophagitis, electrolyte abnormality, severe anemia, pulmonary embolus) Admission/Observation Consideration of admission/observation: Escalation of care including admission/observation considered Lab Data MDM Lab Attestation statement: I reviewed the patient's lab results. 11/27/23 13:50 11/27/23 13:50 Labs: Lab Results 11/27/23 Range/Units 13:50 WBC 6.5 (4.8-10.8) X10*3/uL RBC 5.19 (4.60-5.80) X10*6/uL Hgb 15.0 (14.0-18.0) g/dl Hct 44.1 (42.0-52.0) % MCV 85.0 (80.0-98.0) fL MCH 28.9 (27.0-33.0) pg MCHC 34.0 (31.0-36.0) g/dl RDW 12.4 (11.0-16.0) % Plt Count 234 (160-400) X10*3/uL MPV 9.1 L (9.4-12.4) fL Immature Gran % (Auto) 0.3 (0.0-0.4) % Neut % (Auto) 71.6 (45-73) % Lymph % (Auto) 20.0 (20-40) % [place] % (Auto) 6.2 (2-11) % Eos % (Auto) 1.4 (0-4) % Baso % (Auto) 0.5 (0-2) % Lymph # (Auto) 1.3 (1.2-4.9) X10*3/uL [place] # (Auto) 0.4 (0.1-1.2) X10*3/uL Eos # (Auto) 0.1 (0.0-0.4) X10*3/uL Baso # (Auto) 0.0 (0.0-0.2) X10*3/uL Abs Immat Gran (auto) 0.02 (0.00-0.03) X10*3/uL Absolute Neuts (auto) 4.6 (2.0-8.3) x10*3/uL Absolute Nucleated RBC 0.000 (0.0-0.012) X10*3/uL Nucleated RBC % (auto) 0.0 (0.0-0.2) /100WBC PT 12.4 (11.1-13.3) SEC INR 1.0 (0.9-1.1) D-Dimer High Sensitivty 347 NG/ML Sodium 141 (135-145) mmol/L Potassium 4.2 (3.3-5.1) mmol/L Chloride 105 (96-108) mmol/L Carbon Dioxide 28 (22-29) mmol/L Anion Gap 12 (12-20) BUN 15 (9-16) mg/dL Creatinine 1.02 (0.5-1.4) mg/dL Estim Creat Clear Calc 96.4 Estimated GFR > 60 Random Glucose 99 (60-115) mg/dL Calcium 9.3 (8.4-10.2) mg/dL Total Bilirubin 0.4 (0.0-1.0) mg/dL AST 17 (5-37) U/L ALT 14 (0-40) U/L Alkaline Phosphatase 62 (39-117) U/L Troponin I High Sens < 2.7 (<3.5-35.0) ng/L Total Protein 8.0 (6.5-8.0) g/dL Albumin 4.3 (3.5-5.0) g/dL Lipase 20 (8-78) U/L Independent Interpretation I performed an independent interpretation of an: EKG (Normal sinus rhythm at 60 beats per minutes, normal axis deviation, normal intervals, no ST-T changes.) and CT Scan (CT angio of the chest:* No pulmonary embolism. * A 1 cm irregular nodular opacity in the right lung base, in the region that was previously obscured by consolidation and therefore possibly reflective of chronic scar, however warrants continued surveillance given the rounded and irregular morpholog) Radiology Impression Discussion of test interpretation with radiology: I have reviewed the radiologist's reading. Discharge Plan Discharge Clinical Impression: Atypical chest pain, Gastritis, Pulmonary nodule 1 cm or greater in diameter, Cutaneous abscess of left axilla Patient Disposition: Home, Self-Care Instructions: Gastritis (ED), Pulmonary Nodules (ED) Prescriptions: New omeprazole 40 mg capsule,delayed release(DR/EC) 40 mg PO DAILY Qty: 20 0RF No Action ketorolac 10 mg tablet 10 mg PO TID PRN (Reason: pain) 5 Days Qty: 15 0RF doxycycline monohydrate 100 mg tablet 100 mg PO BID sodium,potassium,mag sulfates [Suprep Bowel Prep Kit] 17.5-3.13-1.6 gram recon soln See Rx Instructions PO .COMPLEX Qty: 354 0RF Rx Instructions: DILUTE; drink 1/2 at 6-8 pm and half at 11 PM- 1AM Referrals: Marcellus Aparicio MD [Physician] - Trenton Sánchez MD [Physician] - Chaka Gutierres III, MD [Primary Care Provider] -
[2023-11-27] MEDS: 0.9 % Sodium Chloride 1,000 ML 999 ML IV (13:52)
[2023-11-27] MEDS: Famotidine/PF 20 MG/2 ML VIAL IVPUSH (13:56)
[2023-11-27 13:59] LABS: MANUAL DIFF FLAG NO
[2023-11-27] MEDS: Magnesium Hydrox/Alum Hydrox 30 ML ORAL.SUSP PO (13:59)
[2023-11-27 14:05] LABS: Basophils Percent Auto 0.5 % (0-2); Eosinophils Absolute Auto 0.1 X10*3/uL (0.0-0.4); Eosinophils Percent Auto 1.4 % (0-4); Hematocrit 44.1 % (42.0-52.0); Imm Gran Abs Auto 0.02 X10*3/uL (0.00-0.03); Imm Gran Pct Auto 0.3 % (0.0-0.4); Lymphocytes Absolute Auto 1.3 X10*3/uL (1.2-4.9); Mean Corpuscular Hemoglobin 28.9 pg (27.0-33.0); Mean Platelet Volume 9.1 fL (9.4-12.4); Monocytes Absolute Auto 0.4 X10*3/uL (0.1-1.2); Monocytes Percent Auto 6.2 % (2-11); Neutrophils Absolute Auto 4.6 x10*3/uL (2.0-8.3); Neutrophils Percent Auto 71.6 % (45-73); Platelet Count 234 X10*3/uL (160-400); Red Blood Count 5.19 X10*6/uL (4.60-5.80); Red Cell Distribution Width 12.4 % (11.0-16.0); White Blood Count 6.5 X10*3/uL (4.8-10.8)
[2023-11-27 14:07] LABS: Prothrombin Time 12.4 SEC (11.1-13.3)
[2023-11-27 14:09] LABS: D Dimer High Sensitivity 347 NG/ML
[2023-11-27 14:21] LABS: Alanine Aminotransferase 14 U/L (0-40); Albumin Level 4.3 g/dL (3.5-5.0); Alkaline Phosphatase 62 U/L (39-117); Anion Gap 12 (12-20); Aspartate Amino Transferase 17 U/L (5-37); Bilirubin Total 0.4 mg/dL (0.0-1.0); Blood Urea Nitrogen 15 mg/dL (9-16); Calcium 9.3 mg/dL (8.4-10.2); Carbon Dioxide 28 mmol/L (22-29); Chloride 105 mmol/L (96-108); Creatinine Clr Calc Pharmacy 96.4; Estimated Glomerular Filt Rate > 60; Glucose Random 99 mg/dL (60-115); Lipase 20 U/L (8-78); Potassium 4.2 mmol/L (3.3-5.1); Sodium 141 mmol/L (135-145)
[2023-11-27 14:33] LABS: Troponin-I High Sensitivity < 2.7 ng/L (<3.5-35.0)
[2023-11-27 14:40] VITALS: BP 126/70; PULSE 62; RESP 13; O2SAT 99
--- NOTE | 2023-11-27 14:51 | PC.NURSE ---
pt aox4, ambulatory. reporting sharp, stinging central/substernal chest pain that started yesterday. Pain comes and goed, and is not received by pepcid which pt reports he took at home.
[2023-11-27] MEDS: iohexoL 350 MG/ML 100 ML INFUS..BTL 65 ML IV (15:43)
[2023-11-27 17:05] VITALS: PULSE 71; RESP 18; O2SAT 96
[2023-11-27 20:14] VITALS: BP 125/66; PULSE 61; RESP 18; O2SAT 99
[2023-11-27] MEDS: Lidocaine HCl 1 % MPF 5 ML VIAL SUBCUT (20:32)
[2023-11-27 20:33] VITALS: BP 123/69; PULSE 62; RESP 18; TEMP 36.7; O2SAT 98
== END 2023-11-27 20:41 | disposition home or self-care (01) ==
PROVIDERS: Physician Assistant; Emergency Provider Emergency Medicine; PCP Internal Medicine
DX: L02.412 Cutaneous abscess of left axilla (principal); R07.89 Other chest pain; R10.13 Epigastric pain; K29.70 Gastritis, unspecified, without bleeding; R91.1 Solitary pulmonary nodule; Z79.899 Other long term (current) drug therapy
CPT/HCPCS: 10060; 36415; 71275; 80053; 83690; 84484; 85025; 85379; 85610; 93005; 96361; 96374; 99284; 99285; Q9967

== ENCOUNTER → 2023-11-27 12:13 | Outpatient (BNV) | payer OTHER, SELFPAY | PROVIDERS: Emergency Provider Emergency Medicine; PCP Internal Medicine; Visit Provider Internal Medicine | DX: R07.9 Chest pain, unspecified (principal) | CPT/HCPCS: 93010 ==

== ENCOUNTER 2023-12-02 12:52 | Outpatient (AMB) | payer OTHER, SELFPAY ==
--- NOTE | 2023-12-02 13:01 | MHC.OFFVIS ---
Intake Vital Signs 12/02/23 13:05 Height 5 ft 6 in Weight 182 lb 15.739 oz BMI 29.5 BP 132/79 Blood Pressure Location Lt brachial Position Sitting Pulse 59 Intake Visit Reasons: Alessandra pt needs EGD Intake Note: Eugene presents in the office as a follow up. Alessandra patient needs EGD. CC: He states that he is having straining in his chest. He had the bug or bad food irma allan. He threw up and ever since he has had pain in his chest area. It feels like a tear or strain. Has gone to ED and thought it could be heart related. It started 11/26 with burning severely. He went to the ED and was given omeprazole. They tried pepcid and maalox but that did nothing. Did a CT scan and ruled out his heart. It may be stomach acid going to his esophagus. Allergies hydrocodone Allergy (Verified 12/02/23 13:05) Hives Medication List - Last Reconciled 12/02/23 by Ting Mascorro, [facility] SPECIALIST-BC ketorolac 10 mg PO TID PRN omeprazole 40 mg PO DAILY HPI Alessandra pt needs EGD HPI Details COLONOSCOPY 10/08/[address] WILLIS Findings: Terminal Ileum-normal Cecum: 4-5 mm sessile polyp removed with biopsy forcpes Ascending Colon: 6-7 mm sessile polyp removed with cold snare Transverse Colon -normal Descending Colon:normal Sigmoid Colon: normal Rectum: Retroflexion with inflammed moderate sized internal hemorrhoids, grade I Anorectum - normal Colon preparation: [place] Bowel Preparation Scale Right colon; 3 Transverse colon: 3 Left colon; 3 (0 = Unprepared colon segment with mucosa not seen due to solid stool that cannot be cleared. 1 = Portion of mucosa of the colon segment seen, but other areas of the colon segment not well seen due to staining, residual stool and/or opaque liquid. 2 = Minor amount of residual staining, small fragments of stool and/or opaque liquid, but mucosa of colon segment seen well. 3 = Entire mucosa of colon segment seen well with no residual staining, small fragments of stool or opaque liquid) Impression and Post Procedure Diagnosis: polyps internal hemorrhoids Plan: High fiber diet leaflet Avoid straining at stool, epsom salts and sitz bath, anusol supps or cream Repeat Colonoscopy in 5 years due to polyps and FH of CRC or earlier if clinically indicated TODAY'S VISIT: Patient is here today for follow-up recent ED visits. Patient previously seen in the office by Dr. Willis, see colonoscopy report above from September of 2023 Patient reports that started with epigastric discomfort that feel like chest pressure after episode of vomiting. Patient reports that on Tuyet after he ate dinner vomited large amount of food. The next day patient reports that he felt squeezing and tightening pain in his chest. Patient was seen in the ER after this episode twice. Rule out CAD. Patient was given Pepcid and GI cocktail and reports that his pain is still there. Patient was placed on omeprazole and his reflux and burning has gone away, however he continues to have the pain. Patient denies any nausea or vomiting. Denies any dyspepsia, dysphagia or odynophagia. Reports that this pain is there all the time. Patient denies any shortness of breath with or without exertion. Denies any chest pressure, presyncope, syncope. Patient denies any issues with anesthesia in the past. [facility] Medical History (Updated 12/02/23 @ 14:19 by Ting Mascorro [facility]) History of esophagitis Surgical History (Updated 12/02/23 @ 13:06 by VALENTIN Rodriguez) Hx of vasectomy Hx of tonsillectomy History of lung surgery History of surgery on arm History of esophagogastroduodenoscopy (EGD) Hx of colonoscopy Family History (Updated 12/02/23 @ 13:07 by VALENTIN Rodriguez) Father Colon cancer Maternal Uncle Colon cancer Social History Household Members: Family Housing: House Alcohol intake: current Alcohol intake frequency: 0-2 drinks per day Alcohol type: beer Patient Tobacco Use Status: Never used Tobacco Substance Use Type: Marijuana Review of Systems Const Denies weight gain and Denies weight loss ENT Reports no additional complaints, Denies dysphagia and Denies odynophagia Card Reports no additional complaints Resp Reports no additional complaints GI Reports abdominal pain (Epigastric), Denies belching, Denies melena, Denies bloating, Denies change in bowel habits, Denies dysphagia, Denies excessive flatus, Denies dyspepsia, Denies heartburn, Denies diarrhea, Denies loose stools, Denies nausea, Denies odynophagia and Denies vomiting Reports no additional complaints Musc Reports no additional complaints Neuro Reports no additional complaints Psych Reports no additional complaints Endo Reports no additional complaints Physical Exam Vital Signs: Last Vital Signs Pulse 59 12/02/23 13:05 BP 132/79 12/02/23 13:05 BMI result Body Mass Index 29.5 Const General: healthy appearing, no acute distress and well developed Nutritional Appearance: well nourished Orientation/consciousness: patient oriented x3 Resp Effort & Inspection: normal respiratory effort, able to speak in complete sentences, no tracheal deviation and symmetric chest movement Auscultation: clear to auscultation bilaterally Cardio Rate: regular rate GI Inspection: Yes normal to inspection and No distended Palpation (GI): Soft to palpation, not firm, nontender and No hepatosplenomegaly present Auscultation: normal bowel sounds General: Yes no CVA tenderness Back/Spine/Pelvis Back: no CVA tenderness Skin General skin exam: elasticity normal, turgor normal and dry skin Neuro General: patient oriented x3 Psych Appearance: grossly normal Mental Status: mental status grossly normal Results Reviewed Results Reviewed: CT OF THE CHEST FINDINGS: QUALITY OF STUDY/CONTRAST BOLUS: Satisfactory. PULMONARY ARTERIES: No pulmonary emboli. THORACIC AORTA: No aneurysm. LUNGS: A 1 cm irregular nodular opacity in the right lung base, in the region that was previously obscured by consolidation. Few other small solid pulmonary nodules largest a 4 mm solid left lower lobe pulmonary nodule, 7:361, stable from 2020 therefore likely benign. Calcified left upper lobe granuloma. PLEURA: No pleural effusion. MEDIASTINUM: No cardiomegaly. Aorta and pulmonary artery are normal in caliber. No mediastinal lymphadenopathy. No hilar lymphadenopathy. CORONARY ARTERY CALCIFICATION: No coronary artery calcification appreciated. CHEST WALL/AXILLA: No axillary or internal mammary lymphadenopathy. Asymmetric fluid in the left prepectoral soft tissues, incompletely evaluated consider correlation with physical exam. UPPER ABDOMEN: Numerous hepatic cysts and hypodensities too small to characterize. OSSEOUS STRUCTURES: Unremarkable. Assessment & Plan Assessment & Plan (1) History of esophagitis: Code(s): Z87.19 - Personal history of other diseases of the digestive system (2) Epigastric pain: Code(s): R10.13 - Epigastric pain (3) GERD (gastroesophageal reflux disease): Code(s): K21.9 - Gastro-esophageal reflux disease without esophagitis Qualifiers: Esophagitis presence: esophagitis presence not specified Qualified Code(s): K21.9 - Gastro-esophageal reflux disease without esophagitis Plan Patient was diagnosed with esophagitis in 2006 on upper endoscopy in treated. Just recently started on omeprazole. Symptoms of acid reflux and dyspepsia are suppressed. Patient however continues to have epigastric discomfort. Patient will be sent for upper endoscopy to rule out gastritis, esophagitis, duodenitis, gastric or peptic ulcers, H pylori, hernia. Although patient had CT scan and chest x-ray and there is no mention of any hernias. Will start patient on sucralfate at bedtime. Patient can continue taking omeprazole. Discussed with patient avoiding dietary triggers in late night snacking. Staying upright for minimal 3 hours after meals discussed with patient. Patient will go for upper endoscopy and he will see Dr. Quiroz after the procedure. Patient is agreeable to this plan and verbalizes understanding of instructions. He was given the opportunity to ask questions and all questions answered. Thank you for allowing me to participate in his care Medications: New sucralfate 1 g PO BEDTIME 21 tabs 0RF R19.7 - Diarrhea, unspecified Refilled omeprazole 40 mg PO DAILY 30 caps 2RF Discontinued ketorolac Discontinued Reason: Patient no longer taking 10 mg PO TID PRN pain Coding Level of Care Code Est Pt Level 4 (01672) Diagnoses History of esophagitis Z87.19 Epigastric pain R10.13 Gastroesophageal reflux disease, unspecified whether esophagitis present K21.9 Esophagitis presence: esophagitis presence not specified Time Spent (min) 35 Comment 20 minutes spent with patient and additional 15 minutes spent reviewing his records
[2023-12-02 13:05] VITALS: BP 132/79; PULSE 59; BMI 29.5
== END 2023-12-02 13:44 | disposition home or self-care (01) ==
PROVIDERS: PCP Internal Medicine; Visit Provider Nurse Practitioner Family
DX: Z87.19 Personal history of other diseases of the digestive system (principal); R10.13 Epigastric pain; K21.9 Gastro-esophageal reflux disease without esophagitis
CPT/HCPCS: 99214

== ENCOUNTER → 2023-12-02 12:52 | Outpatient (BNVA) | payer OTHER, SELFPAY | PROVIDERS: PCP Internal Medicine; Visit Provider Nurse Practitioner Family ==

== ENCOUNTER 2023-12-04 11:17 | Day surgery (SDC) | payer OTHER, SELFPAY ==
--- NOTE | 2023-12-03 12:03 | HO.ANESPROP2 ---
Documented by User: Dina Schumacher NP 12/03/23 12:05 HPI - Anesthesia Eval Consult details Narrative: 43yo M for Upper Endoscopy s/p colo 09/2023 with [facility] Active Problems Active Problems: All Active Problems (Updated 12/02/23 @ 14:19 by Ting Mascorro, [facility]) History of esophagitis (Acute) Tenesmus (rectal) (Acute) Altered bowel habits (Acute) Past Medical History Medical History Hx of fracture of humerus Hx of sinus bradycardia History of esophagitis Family History Family History Father Colon cancer Maternal Uncle Colon cancer Family history of problems with anesthesia: No Surgical History Surgical History Hx of colonoscopy Hx of tonsillectomy Hx of vasectomy Hx of tonsillectomy History of lung surgery History of surgery on arm History of esophagogastroduodenoscopy (EGD) Hx of colonoscopy History of Problems with Anesthesia: No Social History Social History Household Members: Family Housing: House Alcohol intake: current Alcohol intake frequency: 0-2 drinks per day Alcohol type: beer Patient Tobacco Use Status: Never used Tobacco Substance Use Type: Marijuana Are you DNR?: No Advance Directives: No Advance Directives Information Provided: Yes Nutrition Risks: No Nutritional Risk Meds Allergies Allergy/AdvReac Type Severity Reaction Status Date / Time hydrocodone Allergy Hives Verified 12/02/23 13:05 Exam Pertinent Lab Results Pertinent Lab Results: Laboratory Tests 11/27/23 13:50 WBC 6.5 Hgb 15.0 Hct 44.1 Plt Count 234 Sodium 141 Potassium 4.2 Chloride 105 Carbon Dioxide 28 BUN 15 Creatinine 1.02 Narrative Narrative: EKG 11/2023 Vent. Rate : 060 BPM Atrial Rate : 060 BPM P-R Int : 144 ms QRS Dur : 100 ms QT Int : 402 ms P-R-T Axes : 053 039 023 degrees QTc Int : 402 ms Normal sinus rhythm Normal ECG When compared with ECG of 11-NOV-2023 10:33, No significant change was found Assessment and Plan Assessment Anesthesia Assessment: Chart Reviewed Final Anesthetic Review Family History of Problems with Anesthesia: No History of Problems with Anesthesia: No Documented by User: David Szymanski MD 12/04/23 11:50 PMFSH Past Medical History Medical History Hx of fracture of humerus Hx of sinus bradycardia History of esophagitis Family History Family History Father Colon cancer Maternal Uncle Colon cancer Family history of problems with anesthesia: No Surgical History Surgical History Hx of colonoscopy Hx of tonsillectomy Hx of vasectomy Hx of tonsillectomy History of lung surgery History of surgery on arm History of esophagogastroduodenoscopy (EGD) Hx of colonoscopy History of Problems with Anesthesia: No Social History Social History Household Members: Family Housing: House Alcohol intake: current Alcohol intake frequency: 0-2 drinks per day Alcohol type: beer Patient Tobacco Use Status: Never used Tobacco Substance Use Type: Marijuana Are you DNR?: No Advance Directives: No Advance Directives Information Provided: Yes Nutrition Risks: No Nutritional Risk Meds Allergies Allergy/AdvReac Type Severity Reaction Status Date / Time hydrocodone Allergy Hives Verified 12/02/23 13:05 Exam Airway Mallampati Class: II TM Dist: >3cm Neck ROM: Full Loose/Missing/Broken Teeth: No Heart: [id number] Lungs: cta b/l Assessment and Plan Assessment Anesthesia Assessment: Anesthesia Plan Discussed Final Anesthetic Review Family History of Problems with Anesthesia: No History of Problems with Anesthesia: No NPO: Yes ASA Class: II Final Preanesthetic Review: No Changes in Pt Med Stat, Meds/Allgs Chart Reviewed, Consent Obtained/Reviewed and Anes Risks/Benef Reviewed Patient Risk: Intermediate Procedure Risk: Intermediate Assessment/Block/Sedation in SS: Assess/Block/Sedation-SS Anesthetic Plan Anesthetic Plan: MAC: Disposition: Standard PACU
[2023-12-04 11:26] VITALS: BMI 29.7
[2023-12-04 11:32] VITALS: BP 135/72; PULSE 57; RESP 20; TEMP 36.1; O2SAT 99
--- NOTE | 2023-12-04 11:43 | MHC.SHP ---
Pre-Procedural Eval Section A Date of Service: 12/04/23 Section B Chief Complaint: Gastro-esophageal reflux disease without esophagit Relevant Family History (Specify if Yes): No Relevant Social History: None Present Medications: see Short Stay Collaborative assessment Medical History: Significant History (History of esophagitis) History of Previous Operations: Relevant previous surgery/procedure and date(s) (Hx of vasectomy Hx of tonsillectomy History of lung surgery History of surgery on arm History of esophagogastroduodenoscopy (EGD) Hx of colonoscopy) Allergies: Allergies Allergy/AdvReac Type Severity Reaction Status Date / Time hydrocodone Allergy Hives Verified 12/02/23 13:05 Review of Systems Sugical H&P ROS: Negative: Constitution, Cardiovascular, Respiratory, Neurological, Psychiatric, Hem-Onc, Allergic/Immunologic, Gastrointestinal, Genitourinary, Musculoskeletal, Integumentary, Endocrine and Eyes/Ears/Nose/Throat Exam Surgical H&P Exam: Normal: HEENT, Normal: Heart, Normal: Lungs, Normal: Extremities, Normal: Abdomen, Normal: Skin and Normal: Neurological Plan Diagnosis/Plan: Unchanged I have reviewed the history and physical and performed a pertinent physical examination on my patient. No changes have occurred unless specified. Time Spent With Patient Time: Total time managing care of this patient today ____ minutes.
[2023-12-04] MEDS: Lactated Ringers 1,000 ML 100 ML IVCONT (11:44)
--- NOTE | 2023-12-04 11:47 | W.PM.OPN ---
Operative Note Operative Note Date of Service: 12/04/23 Narrative: Procedure Description: EGD Indication: esophageal discomfort Anesthesia: MAC FLEXIBLE TRANSORAL UPPER GASTROINTESTINAL ENDOSCOPY UPPER ENDOSCOPY Consent: Indications for the procedure and potential complications of bleeding, perforation, reaction to medications and missed diagnosis were discussed with the patient and informed consent was obtained. Instrument: Olympus GIF H 190 J mid size upper endoscope Monitoring: Vital signs and clinical assessment, continuous EKG monitoring, Pulse oximetry, Carbon Dioxide monitoring and blood pressure monitoring were done throughout the procedure. Procedure: The patient was placed in the left lateral decubitis position and pre-procedure medications were administered and a bite block was placed. The endoscope was inserted into the mouth and advanced under direct vision to the third part of duodenum. A careful inspection was made as the upper endoscope was withdrawn including a retroflexed examination of the proximal stomach; Findings and interventions are described below. Findings: Larynx:normal Esophagus: GE junction at 40 cm, diaphragm hiatus at 40 cm, there appeared to be resolving esophagitis at the GEJ, bx taken from here and from distal and proximal esophagus . Stomach: Patchy gastric erythema mili in antrum. Biopsies were obtained. Grade 2 flap valve on retroflexed examination of the cardia. Duodenum: Normal bulb and descending duodenum, Intervention: Biopsies as noted above Impression/Findings: esophagitis-resolving gastritis PLAN: await bx check nsaid hx if h pylori pos then treat
[2023-12-04 12:11] VITALS: BP 95/45; PULSE 61; RESP 13; TEMP 36.6; O2SAT 98
[2023-12-04 12:26] VITALS: BP 106/63; PULSE 64; RESP 20; TEMP 36.6; O2SAT 97
== END 2023-12-04 13:03 | disposition home or self-care (01) ==
PROVIDERS: PCP Internal Medicine; Visit Provider Internal Medicine Gastroenterology
PROC: 0DJ08ZZ Inspection of Upper Intestinal Tract, Via Natural or Artificial Opening Endoscopic (ICD-10-PCS; CPT 43235; principal; 2023-12-04 14:20)
DX: K21.9 Gastro-esophageal reflux disease without esophagitis (principal); K29.50 Unspecified chronic gastritis without bleeding; K20.90 Esophagitis, unspecified without bleeding; K44.9 Diaphragmatic hernia without obstruction or gangrene; Z79.899 Other long term (current) drug therapy; Z88.8 Allergy status to other drugs, medicaments and biological substances; Z98.890 Other specified postprocedural states; F12.90 Cannabis use, unspecified, uncomplicated
CPT/HCPCS: 43239; 88305; 88313; 88342; J2704

== ENCOUNTER → 2023-12-04 11:17 | Outpatient (BNV) | payer OTHER, SELFPAY | PROVIDERS: PCP Internal Medicine; Visit Provider Internal Medicine Gastroenterology | DX: K20.90 Esophagitis, unspecified without bleeding (principal); K29.70 Gastritis, unspecified, without bleeding | CPT/HCPCS: 43239 ==

== ENCOUNTER 2023-12-11 12:55 | Outpatient (AMB) | payer OTHER, SELFPAY ==
[2023-12-11 13:01] VITALS: BP 122/64; PULSE 76; O2SAT 97; BMI 29.9
--- NOTE | 2023-12-11 13:01 | A.OFFVIS_ITS ---
Intake Vital Signs 12/11/23 13:01 Height 5 ft 6 in Weight 185 lb 3.013 oz BMI 29.9 BP 122/64 Blood Pressure Location Rt brachial Position Sitting Pulse 76 Pulse Source Doppler Pulse Oximetry (%) 97 Oxygen Delivery Method Room Air Intake Visit Reasons: Pulmonary nodule Allergies hydrocodone Allergy (Verified 12/11/23 13:05) Hives HPI Pulmonary nodule HPI Details 43-year-old gentleman, nonsmoker, with u nderlying history of right- sided decortication for trapped lung in 2020 at [facility] presents for evaluation of incidentally found multiple bilateral pulmonary nodules, largest 1 cm the right base, noted on CT angio chest obtained for evaluation of chest pain. Patient denies other personal or family history of lung disease. He does have family history of colon cancer in his father and paternal uncle. He denies any other pulmonary related concerns or complaints. [facility] Medical History Hx of fracture of humerus Hx of sinus bradycardia History of esophagitis Surgical History Hx of colonoscopy Hx of tonsillectomy Hx of vasectomy Hx of tonsillectomy History of lung surgery History of surgery on arm History of esophagogastroduodenoscopy (EGD) Hx of colonoscopy Family History Father Colon cancer Maternal Uncle Colon cancer Social History Household Members: Family Housing: House Alcohol intake: current Alcohol intake frequency: 0-2 drinks per day Alcohol type: beer Patient Tobacco Use Status: Never used Tobacco Substance Use Type: Marijuana Review of Systems Const Denies daytime sleepiness, Denies excessive sweating, Denies fatigue, Denies fever(s), Denies lethargy, Denies malaise, Denies night sweats, Denies snoring and Denies weight loss Eyes Denies blurry vision and Denies itchy eyes ENT Denies nasal congestion, Denies post nasal drip, Denies sinus pain, Denies sinus pressure and Denies other ( Thrush) Card Denies chest pain, Denies pedal edema, Denies dyspnea, Denies orthopnea and Denies paroxysmal nocturnal dyspnea Resp Denies cough, Denies hemoptysis, Denies excessive phlegm production, Denies d yspnea, Denies snoring and Denies wheezing GI Denies abdominal pain and Denies heartburn Musc Denies myalgias, Denies arthralgias and Denies joint swelling Skin/Breast Denies rash Neuro Denies memory loss and Denies seizure-like activity Psych Denies abnormal sleep pattern, Denies anxiety and Denies memory loss Endo Denies excessive sweating, Denies fatigue and Denies heat intolerance Valentino/Lymph Denies easy bruising Aller/Immun Denies itchy eyes, Denies seasonal rhinorrhea and Denies wheezing Physical Exam Vital Signs: Last Vital Signs Pulse 76 12/11/23 13:01 BP 122/64 12/11/23 13:01 Pulse Ox 97 12/11/23 13:01 Oxygen Delivery Method Room Air 12/11/23 13:01 BMI result Body Mass Index 29.9 Const General: no acute distress and alert Nutritional Appearance: not obese Orientation/consciousness: Other orientation findings ( oriented) HEENT Head: Yes atraumatic Eyes General: appearance normal, both eyes and all related structures Sclerae: sclerae normal EOM: EOMs intact bilaterally Neck Neck: Yes supple Lymphatic: no lymphadenopathy noted Resp Effort & Inspection: normal respiratory effort and no use of accessory muscles Auscultation: clear to auscultation bilaterally Cardio Rate: regular rate Rhythm: regular rhythm Heart sounds: no gallops, no murmurs and no rubs Skin General skin exam: other ( warm) Extrem General: No clubbing, No cyanosis and No edema Assessment & Plan Assessment & Plan (1) Pulmonary nodule 1 cm or greater in diameter: Code(s): R91.1 - Solitary pulmonary nodule Plan: Bilateral pulmonary nodules with the largest 1 1 cm the right base. Will repeat CT chest in 3 months to evaluate for changes. Orders: Orders CT chest wo IV con 02/18/24 R91.1 - Solitary pulmonary nodule Coding Level of Care Code New Pt Level 3 (44471) Diagnoses Pulmonary nodule 1 cm or greater in diameter R91.1
== END 2023-12-11 13:20 | disposition home or self-care (01) ==
PROVIDERS: PCP Internal Medicine; Visit Provider Internal Medicine Pulmonary Disease
DX: R91.1 Solitary pulmonary nodule (principal)
CPT/HCPCS: 99203

== ENCOUNTER → 2023-12-11 12:55 | Outpatient (BNVA) | payer OTHER, SELFPAY | PROVIDERS: PCP Internal Medicine; Visit Provider Internal Medicine Pulmonary Disease ==

== ENCOUNTER 2024-01-19 09:17 | Outpatient (AMB) | payer OTHER, SELFPAY ==
[2024-01-19 09:28] VITALS: BP 120/7; PULSE 54; BMI 28.8
--- NOTE | 2024-01-19 09:28 | A.OFFVIS_ITS ---
Intake Vital Signs 01/19/24 09:28 Height 5 ft 6 in Weight 178 lb 9.191 oz BMI 28.8 BP 120/7 L Blood Pressure Location Lt brachial Position Sitting Pulse 54 Intake Visit Reasons: S/p egd Intake Note: Eugene presents in the office as a follow up EGD. CC: Still has burning in his chest and stomach. He states that he looked at pathology report and seen about inflammation. Allergies hydrocodone Allergy (Verified 01/19/24 09:30) Hives HPI S/p egd HPI Details 43 yr old m here for f/u He had issues with GERD and had EGD as below, also colonoscopy with TA removed EGD: 12/04/23 esophagitis-resolving gastritis PLAN: await bx check nsaid hx if h pylori pos then treat bx: mild chronic inflammation GEJ and stomach with inactive inflammation CTA: 11/2024-- nodule in lung, no coronary calcifications, following pulm INTERIM: He still has chest discomfort he has mild burning, can be various locations lasts for an hour or so not aware of any obvious trigger factors no exertional worsening no sob no cough or wheezing not related to food either he gave up coffee and alcohol for 1 month he is still taking omeprazole once a day in morning denies palpitations EXAM: GENERAL: The patient is well developed and nontoxic. VITAL SIGNS:see workflow HEENT: Nonicteric sclerae, PERRLA, EOMI. Oropharynx clear. Moist mucous membranes. Conjunctivae appear well perfused. No thyroid mass. CHEST: Chest wall is nontender. HEART: Regular rate and rhythm without murmurs. LUNGS: Clear to auscultation bilaterally. ABDOMEN: Soft, positive bowel sounds, nontender, no organomegaly.no flank tenderness SKIN: No rash, no excessive bruising, petechiae, or purpura. NEUROLOGIC: Cranial nerves II-XII intact without motor/sensory deficit. Psych: normal affect A/P: 1/ Atypical chest pain, but pos FH of CA D, no chest wall tenderness, no relation to food PLAN: 1/ refer cardiology, albeit atypical fea tures but pos FH if concerning 2/ if cardiac assessment neg then consid er EGD with cohen, 3/ f/u pulm for nodule in lung PFSH Medical History Hx of fracture of humerus Hx of sinus bradycardia History of esophagitis Surgical History Hx of colonoscopy Hx of tonsillectomy Hx of vasectomy Hx of tonsillectomy History of lung surgery History of surgery on arm History of esophagogastroduodenoscopy (EGD) Hx of colonoscopy Family History Father Colon cancer Maternal Uncle Colon cancer Social History Household Members: Family Housing: House Alcohol intake: current Alcohol intake frequency: 0-2 drinks per day Alcohol type: beer Patient Tobacco Use Status: Never used Tobacco Substance Use Type: Marijuana Physical Exam Vital Signs: Last Vital Signs Pulse 54 01/19/24 09:28 BP 120/7 L 01/19/24 09:28 BMI result Body Mass Index 28.8 Assessment & Plan Assessment & Plan (1) Chest pain: Code(s): R07.9 - Chest pain, unspecified Plan: A/P: 1/ Atypical chest pain, but pos FH of CAD, no chest wall tenderness, no relation to food PLAN: 1/ refer cardiology, albeit atypical features but pos FH if concerning 2/ if cardiac assessment neg then consider EGD with cohen, 3/ f/u pulm for nodule in lung Orders: Referrals Cardiology Referral R07.9 - Chest pain, unspecified Coding Level of Care Code Est Pt Level 4 (73577) Diagnoses Chest pain R07.9
== END 2024-01-19 09:53 | disposition home or self-care (01) ==
PROVIDERS: PCP Internal Medicine; Visit Provider Internal Medicine Gastroenterology
DX: R07.9 Chest pain, unspecified (principal)
CPT/HCPCS: 99214

== ENCOUNTER → 2024-01-19 09:17 | Outpatient (BNVA) | payer OTHER, SELFPAY | PROVIDERS: PCP Internal Medicine; Visit Provider Internal Medicine Gastroenterology ==

== ENCOUNTER 2024-02-03 13:52 | Outpatient (AMB) | payer OTHER, SELFPAY ==
--- NOTE | 2024-02-03 14:04 | MHC.OFFVIS ---
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 He has a pleasant and active 43-year-old male with prior history of mild hyperlipidemia and strong family history for premature coronary artery disease in his dad having his 1st event at age of 60. Patient says around Judith time he developed some gastroenteritis and subsequently had vomiting and subsequently developed burning discomfort in his chest along with intermittent chest tightness. He got concerned and subsequently a GI workup and was diagnosed with esophagitis as well as gastritis. He has been treated for the same with omeprazole. He had a biopsy performed which was negative for H pylori. However subsequently patient has now developed retrosternal chest discomfort which she describes as tightness/squeezing sensation that happens intermittently and comes out of the blue. Mostly happens in her resting situation. He said he does not notice this symptoms when he is active and or when there are stressful situations. Symptoms then last for 10-15 minutes. The symptoms are concerning him given his family history and mild hyperlipidemia. Overall otherwise he said he has been doing well. He has not tried any additional therapy to relieve his symptoms. He wants further workup. GI referred here for cardiology evaluation due to her risk factors. [facility] Medical History Hx of fracture of humerus Hx of sinus bradycardia History of esophagitis Surgical History Hx of colonoscopy Hx of tonsillectomy Hx of vasectomy Hx of tonsillectomy History of lung surgery History of surgery on arm History of esophagogastroduodenoscopy (EGD) Hx of colonoscopy Family History Father Colon cancer CAD (coronary artery disease) Maternal Uncle Colon cancer Social History Household Members: Family Housing: House Alcohol intake: current Alcohol intake frequency: 0-2 drinks per day Alcohol type: beer Patient Tobacco Use Status: Never used Tobacco Substance Use Type: Marijuana Review of Systems Const Denies chills, Denies daytime sleepiness, Denies fatigue, Denies fever(s), Denies frequent falls, Denies poor appetite, Denies snoring, Denies stops breathing during sleep, Denies weakness, Denies weight gain and Denies weight loss Eyes Denies loss of vision ENT Denies dizziness and Denies hearing loss Card Denies chest pain, Denies claudication, Denies leg edema, Denies lightheadedness, Denies palpitations, Denies dyspnea, Denies dyspnea on exertion and Denies orthopnea Resp Denies cough, Denies excessive phlegm production, Denies dyspnea, Denies dyspnea on exertion, Denies snoring and Denies wheezing GI Denies abdominal pain, Denies hematochezia, Denies change in bowel habits, Denies nausea and Denies vomiting Denies dysuria and Denies urinary frequency Musc Denies arthralgias, Denies muscle weakness, Denies numbness and Denies other (frequent falls) Skin/Breast Denies nail changes and Denies rash Neuro Denies Abnormal speech present, Denies dizziness, Denies frequent falls, Denies loss of vision, Denies memory loss, Denies numbness and Denies weakness Psych Denies depression and Denies memory loss Endo Denies fatigue and Denies palpitations Valentino/Lymph Reports easy bruising and Reports other (anemia) Aller/Immun Denies wheezing Physical Exam Vital Signs: Last Vital Signs Pulse 80 02/03/24 14:05 BP 122/72 02/03/24 14:05 BMI result Body Mass Index 29.2 Const General: cooperative, comfortable, no acute distress, well developed, alert, awake, Physically active and well groomed Nutritional Appearance: average body habitus and well nourished Orientation/consciousness: patient oriented x3 Limitations: no limitations HEENT Head: Yes normocephalic and Yes atraumatic Neck Neck: Yes trachea midline, Yes supple and Yes no JVD Resp Effort & Inspection: normal respiratory effort Auscultation: clear to auscultation bilaterally Cardio Jugular venous distension: no JVD Palpation: normal PMI Rate: regular rate Rhythm: regular rhythm Heart sounds: S1 normal heart sound present, S2 normal heart sound present, no click, no gallops and no rubs GI Auscultation: normal bowel sounds Skin General skin exam: no rashes or lesions noted Neuro General: patient oriented x3 and no focal motor deficits Speech: No Abnormal speech present Extrem General: Yes no clubbing, cyanosis or edema Psych Appearance: grossly normal Office Procedures EKG Details: EKG shows normal sinus rhythm normal EKG [id number], Complete Assessment & Plan Assessment & Plan (1) Chest pain: Code(s): R07.9 - Chest pain, unspecified Plan: Patient with atypical chest pain syndrome although with risk factors of mild hyperlipidemia and family history. He has intermittent episodes of chest tightness not always associated with exertion. At this point time I think we can pursue treadmill stress test to evaluate for myocardial ischemia. If this is negative I have suggested him to undergo a coronary calcium score for evaluation of coronary atherosclerosis. If there is no evidence of significant calcium buildup then continued general risk factor modification to pursued. If he has any evidence of coronary atherosclerosis statin therapy may be considered. If his stress test is negative, would consider further GI workup, symptoms are suggestive of possible esophageal spasm. Will follow up in the clinic if need be. Thank you for allowing me to partake in his care Orders: Orders CA stress test Today R07.9 - Chest pain, unspecified CA stress test Today R07.9 - Chest pain, unspecified CT Coronary Calcium Score 2 Weeks R07.9 - Chest pain, unspecified Coding Level of Care Code New Pt Level 4 (77141) Diagnoses Chest pain R07.9 CPT Codes EKG - CPT: 88263-[id number], Complete ([id number])
[2024-02-03 14:05] VITALS: BP 122/72; PULSE 80; BMI 29.2
== END 2024-02-03 14:51 | disposition home or self-care (01) ==
PROVIDERS: PCP Internal Medicine; Visit Provider Internal Medicine Cardiovascular Disease
DX: R07.9 Chest pain, unspecified (principal)
CPT/HCPCS: 93010; 99204

== ENCOUNTER → 2024-02-03 13:52 | Outpatient (BNVA) | payer OTHER, SELFPAY | PROVIDERS: PCP Internal Medicine; Visit Provider Internal Medicine Cardiovascular Disease | DX: R07.9 Chest pain, unspecified (principal) | CPT/HCPCS: 93005 ==

== ENCOUNTER → 2024-02-04 08:45 | Outpatient (REF) | payer OTHER, SELFPAY | LOC: HO.CARD 08:45 | PROVIDERS: PCP Internal Medicine; Visit Provider Internal Medicine Cardiovascular Disease | DX: Z13.89 Encounter for screening for other disorder (principal) ==

== ENCOUNTER 2024-02-04 08:50 | Outpatient (REF) | payer OTHER, SELFPAY ==
--- NOTE | 2024-02-04 08:53 | CA_ITS ---
Acquisition Time: 2024-02-04 09:20:14 Total Exercise Time: 00:11:59 Test Indications: CP ,SOB Medications: Protocol: XI Max HR: 176 BPM 100% of Pred: 176 BPM Max BP: 170/074 mmHG Max Work Load: 13.4 METS Exercise stress test exercise 11 min 59 sec of Xi protocol achieving 100% MPHR, without anginal symptoms, without arrhythmias, with normotensive response to exercise, without EKG changes. Test reviewed with Dr. Beckwith. Referred By: Jacob Roger Overread By: Marly Pope
== END 2024-02-04 08:51 | disposition home or self-care (01) ==
LOC: HO.CT 08:50
PROVIDERS: Visit Provider Internal Medicine Pulmonary Disease
DX: R07.9 Chest pain, unspecified (principal); R91.1 Solitary pulmonary nodule
CPT/HCPCS: 93017

== ENCOUNTER → 2024-02-04 08:53 | Outpatient (BNV) | payer OTHER, SELFPAY | PROVIDERS: Visit Provider Nurse Practitioner | DX: R07.9 Chest pain, unspecified (principal); R06.02 Shortness of breath | CPT/HCPCS: 93016; 93018 ==

== ENCOUNTER 2024-03-01 09:58 | Outpatient (REF) | payer OTHER, SELFPAY ==
--- NOTE | ~2024-03-01 | CT_ITS ---
EXAMINATION: CT CHEST WITHOUT CONTRAST CLINICAL INFORMATION: Solitary pulmonary nodule. COMPARISON: CT chest 11/27/2023: A 1 cm irregular nodular opacity in the right lung base, in the region that was previously obscured by consolidation and therefore possibly reflective of chronic scar, however warrants continued surveillance given the rounded and irregular morphology to ensure no underlying neoplastic process. Per the 2017 revised Fleischner Society guidelines, recommend consideration of CT at 3 months, PET/CT, or tissue sampling to assess for possible neoplasm. CT chest 08/20/2021 and 08/13/2021. TECHNIQUE: Multidetector volumetric CT imaging of the chest was done. Axial MIP volume rendering provided. Sagittal and coronal reformatted images were obtained. This CT examination was performed using dose optimization techniques as appropriate, variously including the following: *Automated exposure control *Adjustment of mA and/or kV according to patient size (this includes techniques or standardized protocols for targeted exams where dose is matched to indication/reason for exam; i.e. extremities or head) *Use of iterative reconstruction technique DLP: 164 mGy-cm FINDINGS: LUNGS: The previously seen nodule in the right posterior costophrenic angle sulcus is larger now measuring 1.2 x 1.2 cm in maximal transverse dimensions compared with 1.1 x 0.9 cm previously (7:519 compare prior 6:52). The 4 mm nodule at the left lung base anteriorly is unchanged (7:500 compare prior 7:361). Some other smaller 2 mm-sized nodules are also unchanged (see saved marion images). MEDIASTINUM: The mediastinum is normal. CORONARY ARTERY CALCIFICATION: None visualized on this study. PLEURA: There is no pleural effusion. No pleural mass or thickening. AXILLA: No lymphadenopathy. UPPER ABDOMEN: Multiple benign hepatic cysts are present. OSSEOUS STRUCTURES: Unremarkable. CT/CT chest wo IV con IMPRESSION: The right lower lobe nodule has increased in size now measuring 1.2 cm in maximal transverse dimension. I believe this still may be benign related to the previous effusion and chest tube placement, however, given the increase in size since November, a PET/CT should be considered if biopsy is not performed. Fleischner guidelines were followed.
== END 2024-03-01 09:59 | disposition home or self-care (01) ==
LOC: HO.CT 09:58
PROVIDERS: Visit Provider Internal Medicine Pulmonary Disease
DX: R91.1 Solitary pulmonary nodule (principal)
CPT/HCPCS: 71250

== ENCOUNTER 2024-03-05 13:22 | Outpatient (AMB) | payer OTHER, SELFPAY ==
[2024-03-05 13:23] VITALS: BP 124/67; PULSE 87; O2SAT 98; BMI 29.2
--- NOTE | 2024-03-05 13:23 | A.OFFVIS_ITS ---
Vital Signs 03/05/24 13:23 Height 5 ft 6 in Weight 180 lb 12.465 oz BMI 29.2 BP 124/67 Blood Pressure Location Rt brachial Position Sitting Pulse 87 Pulse Source Doppler Pulse Oximetry (%) 98 Oxygen Delivery Method Room Air Intake Visit Reasons: Pulmonary nodule Allergies hydrocodone Allergy (Verified 03/05/24 13:28) Hives HPI HPI Pulmonary nodule: Details: 43-year-old gentleman, nonsmoker, with underlying history of right-sided decortication for trapped lung in 2020 at [facility] presents for evaluation of incidentally found multiple bilateral pulmonary nodules, largest 1 cm the right base, noted on CT angio chest obtained for evaluation of chest pain. Patient denies other personal or family history of lung disease. He does have family history of colon cancer in his father and paternal uncle. He denies any other pulmonary related concerns or complaints. After the last office visit patient had a 3 months follow-up CT chest that is read by radiologist to have an increasing right costophrenic angle pulmonary nodule from 0.9 up to 1.2 cm. On my review depending on the CT cut measured there seems to be no significant difference in the nodule size. [facility] Medical History Hx of fracture of humerus Hx of sinus bradycardia History of esophagitis Surgical History Hx of colonoscopy Hx of tonsillectomy Hx of vasectomy Hx of tonsillectomy History of lung surgery History of surgery on arm History of esophagogastroduodenoscopy (EGD) Hx of colonoscopy Family History Father Colon cancer CAD (coronary artery disease) Maternal Uncle Colon cancer Social History Household Members: Family Housing: House Alcohol intake: current Alcohol intake frequency: 0-2 drinks per day Alcohol type: beer Patient Tobacco Use Status: Never used Tobacco Substance Use Type: Marijuana Review of Systems Const Denies daytime sleepiness, Denies excessive sweating, Denies fatigue, Denies fever(s), Denies lethargy, Denies malaise, Denies night sweats, Denies snoring and Denies weight loss Eyes Denies blurry vision and Denies itchy eyes ENT Denies nasal congestion, Denies post nasal drip, Denies sinus pain, Denies sinus pressure and Denies other ( Thrush) Card Denies chest pain, Denies pedal edema, Denies dyspnea, Denies orthopnea and Denies paroxysmal nocturnal dyspnea Resp Denies cough, Denies hemoptysis, Denies excessive phlegm production, Denies dyspnea, Denies snoring and Denies wheezing GI Denies abdominal pain and Denies heartburn Musc Denies myalgias, Denies arthralgias and Denies joint swelling Skin/Breast Denies rash Neuro Denies memory loss and Denies seizure-like activity Psych Denies abnormal sleep pattern, Denies anxiety and Denies memory loss Endo Denies excessive sweating, Denies fatigue and Denies heat intolerance Valentino/Lymph Denies easy bruising Aller/Immun Denies itchy eyes, Denies seasonal rhinorrhea and Denies wheezing Physical Exam Vital Signs: Last Vital Signs Pulse 87 03/05/24 13:23 BP 124/67 03/05/24 13:23 Pulse Ox 98 03/05/24 13:23 Oxygen Delivery Method Room Air 03/05/24 13:23 BMI result Body Mass Index 29.2 Const General: no acute distress and alert Nutritional Appearance: not obese Orientation/consciousness: Other orientation findings ( oriented) HEENT Head: Yes atraumatic Eyes General: appearance normal, both eyes and all related structures Sclerae: sclerae normal EOM: EOMs intact bilaterally Neck Neck: Yes supple Lymphatic: no lymphadenopathy noted Resp Effort & Inspection: normal respiratory effort and no use of accessory muscles Auscultation: clear to auscultation bilaterally Cardio Rate: regular rate Rhythm: regular rhythm Heart sounds: no gallops, no murmurs and no rubs Skin General skin exam: other ( warm) Extrem General: No clubbing, No cyanosis and No edema Assessment & Plan Assessment & Plan (1) Pulmonary nodule 1 cm or greater in diameter: Code(s): R91.1 - Solitary pulmonary nodule Category: Medical Plan: Multiple pulmonary nodules with a dominant right costophrenic angle that shows equivocal increase in size. Options for further radiologic monitoring, biopsy, or surgical resection discussed with the patient who wants to consider his options. Will await patient decision. Coding Level of Care Code Est Pt Level 3 (22203) Diagnoses Pulmonary nodule 1 cm or greater in diameter R91.1
== END 2024-03-05 13:52 | disposition home or self-care (01) ==
PROVIDERS: PCP Internal Medicine; Visit Provider Internal Medicine Pulmonary Disease
DX: R91.1 Solitary pulmonary nodule (principal)
CPT/HCPCS: 99213

== ENCOUNTER → 2024-03-05 13:22 | Outpatient (BNVA) | payer OTHER, SELFPAY | PROVIDERS: PCP Internal Medicine; Visit Provider Internal Medicine Pulmonary Disease ==

== ENCOUNTER 2024-03-16 08:36 | Day surgery (SDC) | payer OTHER, SELFPAY ==
[2024-03-16] VITALS (8 sets, daily range): BP systolic 102–117; BP diastolic 55–66; PULSE 50–69; RESP 14–16; TEMP 36.2; O2SAT 97–100; BMI 28.9
--- NOTE | ~2024-03-16 | CT_ITS ---
43-year-old man with a past surgical history of a right lung decortication and 2020 who presents with a right lower lobe lung nodule. Pulmonary requests a biopsy PROCEDURES: 1. Limited preprocedure CT of the chest. Permanent images saved in PACS. 2. CT-guided biopsy of the right lower lobe lung nodule 3. Limited post procedure CT of the chest. Permanent images saved in PACS. CLINICIANS: Devonte Sanchez PA-C MEDICATIONS: -Versed 0.5 mg, Fentanyl 25 mcg, and lidocaine 1% 10 mL SQ -Antibiotics: None -For additional details, please see nursing flowsheet. COMPLICATIONS: None ESTIMATED BLOOD LOSS: < 5 ml CONTRAST: None SPECIMENS: 4 x 20 g cores were sent for pathology MODERATE SEDATION TIME: 42 min PROCEDURE NOTE: The procedure, risks, benefits, and alternatives were carefully explained to the patient and written informed consent was obtained. The patient was placed in the left lateral decubitus position on the CT table. A timeout was performed. A limited CT of the chest was performed to localize the right lower lobe lung nodule and choose appropriate needle entry and trajectory. The patient was prepped and draped in usual sterile fashion. The skin and deeper soft tissues were anesthetized with lidocaine. Under CT guidance, a 19 gague trocar needle was advanced to the right lower lobe lung nodule. A 20 gauge biopsy device was inserted through the trocar needle and advanced into the lung nodule. A total of 4, 20 gague cores were performed. The specimen was placed in formalin and sent for pathology. An autologous blood patch was performed using 10 cc of nonclotting blood from the patient's peripheral IV. The needle was removed. A dry dressing was applied and secured with Tegaderm. A post procedure limited CT of the chest performed, which did not demonstrate any pneumothorax or hemothorax. There were no immediate complications. The patient was stable after the procedure and was transferred to the post anesthesia care unit. The procedure was done under moderate sedation with a dedicated nurse for monitoring of vital signs. CT/CT biopsy lung RT Impression: CT-guided biopsy of the right lower lobe lung nodule This procedure was performed by Devonte Sanchez PA-C and supervised by Dr. Jacques.
--- NOTE | ~2024-03-16 | XR_ITS ---
EXAMINATION: XR CHEST CLINICAL INFORMATION: Status post right lung biopsy COMPARISON: Chest radiograph 11/11/2023, chest CT 03/01/2024 TECHNIQUE: AP upright portable view of the chest was obtained. 11:45 AM. FINDINGS: No significant abnormality is noted involving the heart, lungs, mediastinum, bony thorax or soft tissues. XR/XR chest 1V IMPRESSION: No acute cardiopulmonary disease.
--- NOTE | ~2024-03-16 | XR_ITS ---
EXAMINATION: XR CHEST CLINICAL INFORMATION: Status post lung biopsy COMPARISON: CT chest 03/01/2024, AP portable chest from earlier today TECHNIQUE: AP upright portable view of the chest was obtained. 12:45 PM FINDINGS: No significant abnormality is noted involving the heart, lungs, mediastinum, bony thorax or soft tissues. XR/XR chest 1V IMPRESSION: No acute cardiopulmonary disease.
[2024-03-16 09:18] LABS: MANUAL DIFF FLAG NO
[2024-03-16 09:20] LABS: Basophils Percent Auto 0.6 % (0-2); Eosinophils Absolute Auto 0.2 X10*3/uL (0.0-0.4); Eosinophils Percent Auto 3.3 % (0-4); Hematocrit 43.2 % (42.0-52.0); Hemoglobin 14.6 g/dl (14.0-18.0); Imm Gran Abs Auto 0.02 X10*3/uL (0.00-0.03); Imm Gran Pct Auto 0.4 % (0.0-0.4); Lymphocytes Absolute Auto 1.9 X10*3/uL (1.2-4.9); Lymphocytes Percent Auto 34.6 % (20-40); Mean Corpuscular HGB Conc 33.8 g/dl (31.0-36.0); Mean Corpuscular Hemoglobin 29.3 pg (27.0-33.0); Mean Corpuscular Volume 86.7 fL (80.0-98.0); Mean Platelet Volume 9.7 fL (9.4-12.4); Monocytes Absolute Auto 0.4 X10*3/uL (0.1-1.2); Monocytes Percent Auto 6.8 % (2-11); Neutrophils Percent Auto 54.3 % (45-73); Platelet Count 195 X10*3/uL (160-400); Red Blood Count 4.98 X10*6/uL (4.60-5.80); Red Cell Distribution Width 12.9 % (11.0-16.0); White Blood Count 5.4 X10*3/uL (4.8-10.8)
[2024-03-16 09:27] LABS: INTERNATIONAL NORM RATIO 0.9 (0.9-1.1); Prothrombin Time 11.1 SEC (11.1-13.3)
[2024-03-16 09:30] LABS: Partial Thromboplastin Time 26.1 SEC (26.0-36.8)
--- NOTE | 2024-03-16 09:47 | MHC.SHP ---
Pre-Procedural Eval Section A - 24 Hr Update-Section A only Date of Service: 03/16/24 Section B - Complete if H&P > 30 days Chief Complaint: RT COSTOPHRENIC ANGLE NODULE,solitary pul nodule Details of Present Illness: 43 y/o man with a RLL lung nodule Relevant Family History (Specify if Yes): Yes Relevant Social History: None Present Medications: see Short Stay Collaborative assessment Medical History: Significant History History of Previous Operations: Relevant previous surgery/procedure and date(s) Allergies: Allergies Allergy/AdvReac Type Severity Reaction Status Date / Time hydrocodone Allergy Hives Verified 03/05/24 13:28 Review of Systems Sugical H&P ROS: Negative: Constitution, Cardiovascular and Respiratory Exam Surgical H&P Exam: Normal: Heart, Normal: Lungs, Normal: Skin and Normal: Neurological and Not Evaluated: HEENT Plan Diagnosis/Plan: Unchanged I have reviewed the history and physical and performed a pertinent physical examination on my patient. No changes have occurred unless specified. Right lung nodule biopsy Time Spent With Patient Time: Total time managing care of this patient today ____ minutes.
[2024-03-16] MEDS: Lidocaine HCl 1 % MPF 30 ML VIAL 10 ML SUBCUT (11:19)
== END 2024-03-16 13:09 | disposition home or self-care (01) ==
PROVIDERS: Physician Assistant Surgical; Visit Provider Internal Medicine Pulmonary Disease
DX: R91.8 Other nonspecific abnormal finding of lung field (principal); R07.9 Chest pain, unspecified; R00.1 Bradycardia, unspecified; K20.90 Esophagitis, unspecified without bleeding; Z80.0 Family history of malignant neoplasm of digestive organs; Z98.890 Other specified postprocedural states; Z88.8 Allergy status to other drugs, medicaments and biological substances
CPT/HCPCS: 32408; 36415; 71045; 85025; 85610; 85730; 88305; 99152; 99153; J2250; J2310; J3010

== ENCOUNTER → 2024-03-16 09:46 | Outpatient (BNV) | payer OTHER, SELFPAY | PROVIDERS: Visit Provider Physician Assistant Surgical | DX: R91.1 Solitary pulmonary nodule (principal) | CPT/HCPCS: 32408 ==

== ENCOUNTER 2024-05-24 08:53 | Outpatient (AMB) | payer OTHER, SELFPAY ==
--- NOTE | 2024-05-24 08:58 | MHC.OFFVIS ---
Vital Signs 05/24/24 08:59 Height 5 ft 6.5 in Weight 180 lb 12.465 oz BMI 28.7 BP 116/66 Blood Pressure Location Lt brachial Position Sitting Pulse 59 Intake Visit Reasons: 4 month follow up Intake Note: Eugene kaufman in the office as a 4 month follow up. CC: He was feeling good and did not refill omeprazole. Burning in the stomach and chest occured and has since gotten better but it still is not as good as it was before he stopped taking medication. Community Services Coordinator Required: No Allergies hydrocodone Allergy (Verified 05/24/24 08:59) Hives HPI HPI 4 month follow up: Details: 43 yr old m here for f/u He had issues with GERD and had EGD as below, also colonoscopy with TA removed EGD: 12/04/23 esophagitis-resolving gastritis PLAN: await bx check nsaid hx if h pylori pos then treat bx: mild chronic inflammation GEJ and stomach with inactive inflammation CTA: 11/2024-- nodule in lung, no coronary calcifications, following pulm He was referred to cards due to atypical chest pain, neg stress test INTERIM: He still has chest discomfort and burning, not as bad as before He did stop PPI for a while but sx got worse so restarted not aware of any obvious trigger factors no exertional worsening no sob no cough or wheezing not related to food either no stress in work etc got bakc from holiday in [place] EXAM: GENERAL: The patient is well developed and nontoxic. VITAL SIGNS:see workflow HEENT: Nonicteric sclerae, PERRLA, EOMI. Oropharynx clear. Moist mucous membranes. Conjunctivae appear well perfused. No thyroid mass. CHEST: Chest wall is nontender. HEART: Regular rate and rhythm without murmurs. LUNGS: Clear to auscultation bilaterally. ABDOMEN: Soft, positive bowel sounds, nontender, no organomegaly.no flank tenderness SKIN: No rash, no excessive bruising, petechiae, or purpura. NEUROLOGIC: Cranial nerves II-XII intact without motor/sensory deficit. Psych: normal affect A/P: 1/ Atypical chest pain, but pos FH of CAD, no chest wall tenderness, neg stress test, ?due to acid reflux and esophageal spasm PLAN: 1/ change omeprazole to esomperazole 40 mg, if sx persist then cohen --if neg then TCA trial PFSH Medical History Hx of fracture of humerus Hx of sinus bradycardia History of esophagitis Surgical History Hx of colonoscopy Hx of tonsillectomy Hx of vasectomy Hx of tonsillectomy History of lung surgery History of surgery on arm History of esophagogastroduodenoscopy (EGD) Hx of colonoscopy Family History Father Colon cancer CAD (coronary artery disease) Maternal Uncle Colon cancer Social History Household Members: Family Housing: House Alcohol intake: current Alcohol intake frequency: 0-2 drinks per day Alcohol type: beer Patient Tobacco Use Status: Never used Tobacco Substance Use Type: Marijuana Physical Exam Vital Signs: Last Vital Signs Pulse 59 05/24/24 08:59 BP 116/66 05/24/24 08:59 BMI result Body Mass Index 28.7 Assessment & Plan Assessment & Plan (1) History of esophagitis: Code(s): Z87.19 - Personal history of other diseases of the digestive system Category: Medical Plan: see above Medications: New esomeprazole magnesium 40 mg PO DAILY 90 caps 1RF Discontinued omeprazole Discontinued Reason: Doctor's Order 40 mg PO DAILY 30 caps 2RF Coding Level of Care Code Est Pt Level 3 (65468) Diagnoses History of esophagitis Z87.19
[2024-05-24 08:59] VITALS: BP 116/66; PULSE 59; BMI 28.7
== END 2024-05-24 09:22 | disposition home or self-care (01) ==
PROVIDERS: Visit Provider Internal Medicine Gastroenterology
DX: Z87.19 Personal history of other diseases of the digestive system (principal)
CPT/HCPCS: 99213

== ENCOUNTER → 2024-05-24 08:53 | Outpatient (BNVA) | payer OTHER, SELFPAY | PROVIDERS: Visit Provider Internal Medicine Gastroenterology ==

== ENCOUNTER 2024-06-21 09:17 | Outpatient (REF) | payer OTHER, SELFPAY ==
--- NOTE | ~2024-06-21 | CT_ITS ---
EXAMINATION: CT CHEST WITHOUT CONTRAST CLINICAL INFORMATION: Solitary pulmonary nodule. COMPARISON: Chest CTs dating between March 01, 2024 and August 13, 2021. TECHNIQUE: Multidetector volumetric CT imaging of the chest was done. Axial MIP volume rendering provided. Sagittal and coronal reformatted images were obtained. This CT examination was performed using dose optimization techniques as appropriate, variously including the following: *Automated exposure control *Adjustment of mA and/or kV according to patient size (this includes techniques or standardized protocols for targeted exams where dose is matched to indication/reason for exam; i.e. extremities or head) *Use of iterative reconstruction technique DLP: 186 mGy-cm FINDINGS: LUNGS: Approximately 1.5 cm nodular density is associated with contiguous linear airspace disease in the right costophrenic sulcus posteriorly (image 534, series 7). It does not appear significantly changed dating back to November 27, 2023, by my measurements. Prior to that date this region of the lungs was obscured by consolidative infiltrate and pleural fluid. This lesion underwent percutaneous biopsy on March 16, 2024. Additional foci of atelectasis and/or fibrotic streaks at the right base, likely related to previous inflammatory process. Additional, separate 4 cm mass with nodular apical densities and/or intrapulmonary lymph node appear unchanged as well. (Please see marion images.) No new nodule is seen. No acute inflammatory process is identified. Patent central bronchi. MEDIASTINUM: The mediastinum appears unremarkable. CORONARY ARTERY CALCIFICATION: None visualized on this study. PLEURA: There is no pleural effusion. No pleural mass or thickening. AXILLA: No lymphadenopathy by size criteria. UPPER ABDOMEN: Greater than 10, approximately 2 cm or less, round, homogeneous, hypodense hepatic lesions which do not appear significantly changed over the prior 3 years, therefore likely representing benign entities, such as simple cysts and/or hemangiomata. OSSEOUS STRUCTURES: Unremarkable. CT/CT chest wo IV con IMPRESSION: Approximately 1.5 cm nodular density is associated with contiguous linear airspace disease in the right costophrenic sulcus posteriorly, not significantly changed dating back to November 27, 2023, by my measurements. Prior to that date this region of the lungs was obscured by consolidative infiltrate and pleural fluid. This lesion underwent percutaneous biopsy on March 16, 2024. Recommend correlation with pathology results. Additional foci of atelectasis and/or fibrotic streaks at the right base, likely related to previous inflammatory process. Additional, separate 4 cm mass with nodular apical densities and/or apparent change as well. Electronically signed by: Mario Santos MD 07/14/2024 01:09 PM EDT RP
== END 2024-06-21 09:18 | disposition home or self-care (01) ==
LOC: HO.CT 09:17
PROVIDERS: PCP Internal Medicine; Visit Provider Internal Medicine Pulmonary Disease
DX: R91.1 Solitary pulmonary nodule (principal)
CPT/HCPCS: 71250

== ENCOUNTER 2024-08-12 07:33 | Outpatient (REF) | payer OTHER, SELFPAY ==
[2024-08-12 07:44] LABS: MANUAL DIFF FLAG NO
[2024-08-12 08:53] LABS: Basophils Percent Auto 0.6 % (0-2); Eosinophils Absolute Auto 0.3 X10*3/uL (0.0-0.4); Eosinophils Percent Auto 5.5 % (0-4); Hematocrit 42.4 % (42.0-52.0); Hemoglobin 13.9 g/dl (14.0-18.0); Imm Gran Abs Auto 0.01 X10*3/uL (0.00-0.03); Imm Gran Pct Auto 0.2 % (0.0-0.4); Lymphocytes Absolute Auto 1.7 X10*3/uL (1.2-4.9); Lymphocytes Percent Auto 35.8 % (20-40); Mean Corpuscular HGB Conc 32.8 g/dl (31.0-36.0); Mean Corpuscular Hemoglobin 28.8 pg (27.0-33.0); Mean Corpuscular Volume 87.8 fL (80.0-98.0); Monocytes Absolute Auto 0.4 X10*3/uL (0.1-1.2); Monocytes Percent Auto 7.6 % (2-11); Neutrophils Absolute Auto 2.4 x10*3/uL (2.0-8.3); Neutrophils Percent Auto 50.3 % (45-73); Platelet Count 181 X10*3/uL (160-400); Red Blood Count 4.83 X10*6/uL (4.60-5.80); Red Cell Distribution Width 12.5 % (11.0-16.0); White Blood Count 4.8 X10*3/uL (4.8-10.8)
[2024-08-12 09:39] LABS: Alanine Aminotransferase 13 U/L (0-40); Albumin Level 4.1 g/dL (3.5-5.0); Alkaline Phosphatase 45 U/L (39-117); Anion Gap 10 (12-20); Aspartate Amino Transferase 16 U/L (5-37); Bilirubin Total 0.6 mg/dL (0.0-1.0); Blood Urea Nitrogen 16 mg/dL (9-16); Calcium 9.3 mg/dL (8.4-10.2); Carbon Dioxide 29 mmol/L (22-29); Chloride 106 mmol/L (96-108); Cholesterol 222 mg/dL (<200); Estimated Glomerular Filt Rate > 60; Glucose Random 90 mg/dL (60-115); HDL Cholesterol 55 mg/dL (>40); LDL Cholesterol Calculated 141 mg/dL (<100); Potassium 3.9 mmol/L (3.3-5.1); Sodium 141 mmol/L (135-145); TSH reflex Free T4 2.25 uIU/mL (0.32-4.0); Total Protein 7.2 g/dL (6.5-8.0); Triglycerides 130 mg/dL (<150)
[2024-08-12 09:48] LABS: Reflex LDLD? No
[2024-08-12 10:03] LABS: Prostate Specific Antigen 0.24 ng/mL (<0.05-4.0)
== END 2024-08-12 07:34 | disposition home or self-care (01) ==
LOC: HO.LAB 07:33
PROVIDERS: PCP Internal Medicine; Visit Provider Internal Medicine
DX: Z00.00 Encounter for general adult medical examination without abnormal findings (principal); Z12.5 Encounter for screening for malignant neoplasm of prostate; Z13.6 Encounter for screening for cardiovascular disorders
CPT/HCPCS: 36415; 80053; 80061; 84153; 84443; 85025

== ENCOUNTER 2024-12-21 12:52 | Outpatient (REF) | payer OTHER, SELFPAY | END 2024-12-21 12:53 | disposition home or self-care (01) | LOC: HO.MRI 12:52 | PROVIDERS: Visit Provider Chiropractor | DX: M43.06 Spondylolysis, lumbar region (principal); M95.9 Acquired deformity of musculoskeletal system, unspecified | CPT/HCPCS: 72146; 72148 ==

== ENCOUNTER → 2024-12-21 13:05 | Outpatient (BNV) | payer OTHER, SELFPAY | PROVIDERS: Visit Provider Radiology Diagnostic Radiology | DX: M47.896 Other spondylosis, lumbar region (principal); M47.894 Other spondylosis, thoracic region; M50.223 Other cervical disc displacement at C6-C7 level | CPT/HCPCS: 72146; 72148 ==

== ENCOUNTER 2025-01-03 09:48 | Outpatient (AMB) | payer OTHER, SELFPAY ==
--- NOTE | 2025-01-03 10:10 | MHC.OFFVIS ---
Vital Signs 01/03/25 10:11 Height 5 ft 6.5 in Weight 178 lb 9.191 oz BMI 28.4 BP 117/75 Blood Pressure Location Lt brachial Position Sitting Pulse 52 Intake Visit Reasons: 6 month follow up Intake Note: Eugene presents in the office as a 6 month follow up. CC: He had a lung biopsy since his last visit. He is not having any issues and no concerns. HE states that here and there he will have discomfort in the chest. Medical Underwriter Required: No Allergies hydrocodone Allergy (Verified 01/03/25 10:12) Hives HPI HPI 6 month follow up: Details: 44 yr old m here for f/u He had issues with GERD and had EGD as below, also colonoscopy with TA removed EGD: 12/04/23 esophagitis-resolving gastritis PLAN: await bx check nsaid hx if h pylori pos then treat bx: mild chronic inflammation GEJ and stomach with inactive inflammation CTA: 11/2024-- nodule in lung, no coronary calcifications, following pulm He was referred to cards due to atypical chest pain, neg stress test INTERIM: he passed his cardiac testing he is taking PPI no major issues he is anxious about delaying colo given FH and asking for earlier now he has occ hemorrhoidal bleeding EXAM: GENERAL: The patient is well developed and nontoxic. VITAL SIGNS:see workflow HEENT: Nonicteric sclerae, PERRLA, EOMI. Oropharynx clear. Moist mucous membranes. Conjunctivae appear well perfused. No thyroid mass. CHEST: Chest wall is nontender. HEART: Regular rate and rhythm without murmurs. LUNGS: Clear to auscultation bilaterally. ABDOMEN: Soft, positive bowel sounds, nontender, no organomegaly.no flank tenderness SKIN: No rash, no excessive bruising, petechiae, or purpura. NEUROLOGIC: Cranial nerves II-XII intact without motor/sensory deficit. Psych: normal affect A/P: 1/ Tubular adenomas 2/ GERD- controlled PLAN: 1/ cut down to esomeprazole 20 mg and take multivitamin 2/ repeat colonoscopy given his concerns from [facility] Medical History Hx of fracture of humerus Hx of sinus bradycardia History of esophagitis Surgical History Hx of colonoscopy Hx of tonsillectomy Hx of vasectomy Hx of tonsillectomy History of lung surgery History of surgery on arm History of esophagogastroduodenoscopy (EGD) Hx of colonoscopy Family History Father Colon cancer CAD (coronary artery disease) Maternal Uncle Colon cancer Social History Household Members: Family Housing: House Alcohol intake: current Alcohol intake frequency: 0-2 drinks per day Alcohol type: beer Patient Tobacco Use Status: Never used Tobacco Substance Use Type: Marijuana Physical Exam Vital Signs: Last Vital Signs Pulse 52 01/03/25 10:11 BP 117/75 01/03/25 10:11 BMI result Body Mass Index 28.4 Assessment & Plan Assessment & Plan (1) Colon polyps: Code(s): K63.5 - Polyp of colon Category: Medical Plan: as above Medications: New esomeprazole magnesium 20 mg PO DAILY 90 caps 1RF sodium,potassium,mag sulfates 17.5-3.13-1.6 gram (Suprep Bowel Prep Kit) DILUTE; drink 1/2 at 6-8 pm and half at 11 PM- 1AM 354 mL 0RF Discontinued esomeprazole magnesium Discontinued Reason: Doctor's Order 40 mg PO DAILY 90 caps 1RF Coding Level of Care Code Est Pt Level 3 (43997) Diagnoses Colon polyps K63.5
[2025-01-03 10:11] VITALS: BP 117/75; PULSE 52; BMI 28.4
--- OUTSIDE RECORDS SUMMARY | 2025-01-03 10:44 | XMS_ITS | Clinical Summary ---
Author Organization [facility] Address [address] [place] [id number] Care Team Providers Care Access Database Developer Name Role Phone Bhavik HAQUE MD, [facility]en Allergies Active Allergy Reactions Criticality Noted Date Comments Hydrocodone Hives Medium 08/16/2021 Medications Medication Sig Dispensed Refills Start Date End Date Status acetaminophen (TYLENOL) 325 MG tabletIndications:Pl eural effusion on right Take 3 tablets (975 mg total) by mouth every 6 (six) hours around the clock. 360 tablet 08/25/2021 Active loratadine (CLARITIN) 10 MG tabletIndications:Pl eural effusion on right Take 1 tablet (10 mg total) by mouth daily. Do not start before August 26, 2021. 30 tablet 08/26/2021 Active methocarbamol (ROBAXIN) 500 MG tabletIndications:Pl eural effusion on right Take 1 tablet (500 mg total) by mouth 3 (three) times a day as needed for muscle spasms. 30 tablet 08/25/2021 Active polyethylene glycol (miraLAx) 17 g packetIndications:Pl eural effusion on right Take 1 packet (17 g total) by mouth daily. Do not start before August 26, 2021. 10 packet 08/26/2021 Active Lactobacillus acidophilus capsuleIndications:P leural effusion on right Take 2 capsules by mouth 2 (two) times a day. 56 capsule 08/25/2021 Active amoxicillin-clavulan ate (AUGMENTIN) 875-125 MG per tabletIndications:Pl eural effusion on right Take 1 tablet by mouth 2 (two) times a day. 28 tablet 08/25/2021 Active HYDROmorphone (DILAUDID) 2 MG tabletIndications:Pl eural effusion on right Take 1 tablet (2 mg total) by mouth every 8 (eight) hours around the clock. Max Daily Amount: 6 mg 6 tablet 08/25/2021 Active pregabalin (LYRICA) 50 MG capsuleIndications:P leural effusion on right Take 1 capsule (50 mg total) by mouth 3 (three) times a day. 45 capsule 08/25/2021 Active Active Problems Problem Noted Date Diagnosed Date Dyspnea on exertion 08/15/2021 Splenomegaly 08/15/2021 Pleural effusion on right 08/15/2021 Elevated d-dimer 08/15/2021 Cellulitis of right upper extremity 08/15/2021 Family History Medical History Relation Name Comments Colon cancer Father Hypertension Father Relation Name Status Comments Father Social History Tobacco Use Types Packs/Day Years Used Date Smoking Tobacco: Never Smokeless Tobacco: Never Alcohol Use Standard Drinks/Week Comments Yes 0 (1 standard drink = 0.6 oz pur e alcohol) 7-10 drinks per week Sex and Gender Information Value Date Recorded Sex Assigned at Not on file Gender Identity Not on file Sexual Orientation Not on file Last Filed Vital Signs Vital Sign Reading Time Taken Comments Blood Pressure 112/79 09/13/2021 2:17 PM EDT Pulse 64 09/13/2021 2:17 PM EDT Temperature 35.7 ??C (96.3 ??F) 08/25/2021 11:49 AM E DT Respiratory Rate 16 09/13/2021 2:17 PM EDT Oxygen Saturation 97% 09/13/2021 2:17 PM EDT Inhaled Oxygen Concentration - - Weight 78 kg (172 lb) 08/17/2021 9:00 PM EDT Height 170.2 cm (5' 7 ) 08/17/2021 9:00 PM EDT Body Mass Index 26.94 08/17/2021 9:00 PM EDT Plan of Treatment Health Maintenance Due Date Last Done Comments Hepatitis C Virus Screening 1979 DTaP/Tdap/Td Vaccines (1 - Tdap) 1998 Hepatitis B Vaccines (1 of 3 - 19+ 3-dose series) 1998 Influenza Vaccine 06/10/2024 09/10/2017 COVID-19 Vaccine (2023-2 5 season) 2024 01/01/2021, 12/04/2020 Colonoscopy 2024 HIV Screening Completed 08/17/2021 HPV Vaccines Aged Out No longer eligi ble based on patient's age to complete this topic Pneumococcal Vaccine: Pediatric (0-5 Years) and At-Risk Patients (6 to 49 Years) Aged Out No longer eligible b ased on patient's age to complete this topic Procedures Procedure Name Priority Date/Time Associated Diagnosis Comments HIV 1/2 AG/AB CMIA REFLEX TO CONFIRMATION Routine 08/17/2021 1:10 PM EDT from Last 3 Months or Most Recently Relevant to Health Maintenance Results * HIV 1/2 Ag/Ab CMIA Reflex to Confirmation (08/17/2021 1:10 PM EDT) HIV 1/2 Ag/Ab CMIA Nonreactive Nonreactive 08/20/2021 12:33 PM EDT [facility] Comment:Results show no evid ence of infection by HIV 1/2. If clinically indicated, repeat CMIA or test by nucleic acid amplification. Blood specimen (specimen) Serum specimen / Unknown 08/17/2021 1:10 PM EDT 08/17/2021 1:34 PM EDT Otoniel Adkins MD [facility] [address] [address] from Last 3 Months or Most Recently Relevant to Health Maintenance Advance Directives * Full Code (Latest Code Status on File) Date Activated Date Inactivated Comments 08/16/2021 6:57 PM Question Answer Comments Decision Thoroughly Discussed with: Patient Care Teams Access Database Developer Relationship Specialty Start Date End Date Chaka Gutierres III, MD PCP - General Internal Medicine 08/13/21
--- OUTSIDE RECORDS SUMMARY | 2025-01-03 10:44 | XMS_ITS | Clinical Summary ---
Author Organization [facility] Address [address] [place] [address] Care Team Providers Care Accounting Recruiter Name Role Phone Bhavik HAQUE MD, [facility] Allergies Active Allergy Reactions Criticality Noted Date Comments Hydrocodone Hives Medium 08/16/2021 Medications Medication Sig Dispensed Refills Start Date End Date Status omeprazole (PriLOSEC) 40 MG capsule 0 11/28/2023 Active Active Problems Problem Noted Date Diagnosed Date Pulmonary nodule less than 1 cm in diameter with low risk for malignant neoplasm 12/02/2023 Esophagus tear 12/02/2023 Cellulitis of left axilla 09/19/2023 Boil 09/17/2023 Carbuncle 09/17/2023 Hidradenitis axillaris 09/17/2023 Splenomegaly 08/15/2021 Urticaria 08/15/2021 Routine general medical exam ination at a health care facility 01/12/2016 Gastroesophageal reflux disease with esophagitis 12/29/2015 Gastritis 12/29/2015 Dyslipidemia 12/29/2015 Multiple nevi 12/29/2015 Overview: She sees a core carrier yearly Resolved Problems Problem Noted Date Diagnosed Date Resolved Date Rash and other nonspecific skin eruption 08/15/2021 09/03/2021 Recurrent right pleural effusion 08/15/2021 06/05/2022 Mid back pain on right side 08/15/2021 06/03/2022 Elevated d-dimer 08/15/2021 06/03/2022 Fever 08/15/2021 06/03/2022 Cellulitis of right upper extremity 08/15/2021 06/03/2022 Dyspnea on exertion 08/15/2021 06/03/20 Allergic reaction 08/15/2021 06/03/2022 Lipoma of scalp 01/12/2016 01/24/2017 Atypical nevi 01/12/2016 01/26/2018 Immunizations Name Administration Dates Next Due Covid-19 (Moderna 12+) 100mcg/0.5mL dosage 10/10,01/01/2021,12/04/2020 Influenza Quad (Afluria/Fluz one) 0.5mL >=6mon Vial (SD-IIV4) 09/26/2021,09/10/2016 Influenza Trivalent (Fluzone /Afluria) 5.0mL Multi-dose Vial 09/10/2017 MMR 04/02/2021,02/27/2021 Tdap 01/12/2016 Family History Medical History Relation Name Comments Cancer Father age 69 of [place] colon ca Heart disease Father age 69 of [place] Hyperlipidemia Father age 69 of [place] Hypertension Father age 69 of [place] COPD Maternal Uncle Hyperlipidemia Mother Hypertension Mother Cancer Paternal Uncle Learning disabilities Son Relation Name Status Comments Father age 69 of [place] Maternal Uncle Mother Paternal Uncle Son Social History Tobacco Use Types Packs/Day Years Used Date Smoking Tobacco: Never Smokeless Tobacco: Never Alcohol Use Standard Drinks/Week Comments Yes 12 (1 standard drink = 0.6 oz pu re alcohol) Sex and Gender Information Value Date Recorded Sex Assigned at Male 02/01/2019 3:53 PM EDT Gender Identity Male 02/01/2019 3:53 PM EDT Sexual Orientation Straight 02/01/2019 3: 53 PM EDT Job Start Date Occupation Industry Not on file Not on file Not on file Last Filed Vital Signs Vital Sign Reading Time Taken Comments Blood Pressure 132/80 12/02/2023 10:30 AM EST Pulse 60 12/02/2023 10:30 AM EST Temperature 36.6 ??C (97.8 ??F) 12/02/2023 10:[address] Respiratory Rate - - Oxygen Saturation 98% 06/05/2022 2:30 PM EDT Inhaled Oxygen Concentration - - Weight 82.6 kg (182 lb) 08/13/2023 2:43 PM EDT Height 170.2 cm (5' 7 ) 08/13/2023 2:43 PM EDT Body Mass Index 28.51 08/13/2023 2:43 PM EDT Plan of Treatment Health Maintenance Due Date Last Done Comments Hepatitis B Vaccines (1 of 3 - 3-dose series) 1979 Hepatitis C Screening 1979 Pneumococcal Vaccine (1 of 2 - PCV) 1985 COVID-19 Vaccine ( season) 2024 10/10/2021, 01/01/2021, 12/04/2020 Influenza Vaccine (#1) 2024 , 09/10/2017, 09/10/2016 BMI Counseling 08/13/2024 08/13/2023, 02/2023, 06/05/2022, Additional history exists Depression Screening 08/13/2024 08/13/2023, 06/05/2022, 05/30/2021, Additional history exists Preventative Health Evaluation 08/13/2024 08/13/2023, 08/13/2023, 06/05/2022, Additional history exists DTap / Tdap / Td (2 - Td or Tdap) 01/11/2026 01/12/2016 Colon Cancer Screening (Colonoscopy) 08/25/2029 08/25/2019 RSV Ped < 20 months Aged Out No longe r eligible based on patient's age to complete this topic Care Teams Accounting Recruiter Relationship Specialty Start Date End Date Chaka Gutierres III, MD PCP - General Internal Medicine 02/09/21
--- OUTSIDE RECORDS SUMMARY | 2025-01-03 10:44 | XMS_ITS | Clinical Summary ---
Author Organization [facility] Address [address] [place] [address] Care Team Providers Care Guard Immigration Name Role Phone Bhavik HAQUE MD, [facility] Surgical History Surgery Date Site/Laterality Comments TONSILLECTOMY PROCEDURE:TONSILLECTOMY HERNIA REPAIR Right PROCEDURE:HERNIA REPAIR;COMMENT:age 8 OTHER SURGICAL HISTORY 07/27/2007 Left PROCEDURE:distal left humerus open reduction internal fixation VASECTOMY PROCEDURE:VASECTOMY HERNIA REPAIR PROCEDURE:INGUINAL HERNIA REPAIR FRACTURE SURGERY PROCEDURE:FRACTURE SURGERY OTHER SURGICAL HISTORY 08/2021 PROCEDURE:Decortication of right lung Medical History Medical History Date Comments Gastroesophageal reflux dise ase with esophagitis 12/29/2015 DX:Gastroesophageal reflux d isease with esophagitis Gastritis 12/29/2015 DX:Gastritis Dyslipidemia 12/29/2015 DX:Dyslipidemia Multiple nevi 12/29/2015 DX:Multiple nevi ;COMMENT:She sees a monument installer yearly Internal hemorrhoids DX:Internal hemorrhoids Fracture of humerus, distal, left, closed DX:Fracture of humerus, dist al, left, closed Nail fungus DX:Nail fungus Family History Medical History Relation Name Comments Cancer Father age 69 of [place] colon ca Heart disease Father age 69 of [place] Hyperlipidemia Father age 69 of [place] Hypertension Father age 69 of [place] Cancer Father's Brother Hyperlipidemia Mother Hypertension Mother COPD Mother's Brother Learning disabilities Son Relation Name Status Comments Father age 69 of [place] Father's Brother Mother Mother's Brother Son Social History Tobacco Use Types Packs/Day Years Used Date Smoking Tobacco: Never Smokeless Tobacco: Never Alcohol Use Standard Drinks/Week Comments Yes 12 (1 standard drink = 0.6 oz pu re alcohol) Sex and Gender Information Value Date Recorded Sex Assigned at Not on file Legal Sex Male 11:00 PM EST Gender Identity Not on file Sexual Orientation Not on file Obstetrics History Last Filed Vital Signs Vital Sign Reading Time Taken Comments Blood Pressure 132/80 12/02/2023 10:30 AM EST Pulse 60 12/02/2023 10:30 AM EST Temperature - - Respiratory Rate - - Oxygen Saturation - - Inhaled Oxygen Concentration - - Weight 82.6 kg (182 lb) 08/13/2023 2:43 PM EDT Height 170.2 cm (5' 7 ) 08/13/2023 2:43 PM EDT Body Mass Index 28.51 08/13/2023 2:43 PM EDT Plan of Treatment Health Maintenance Due Date Last Done Comments Hepatitis B Vaccines (1 of 3 - 19+ 3-dose series) 1998 Cholesterol Screening (Lipid Panel) 10/18/2022 Depression Screening 10/18/2022 HIV Screening 10/18/2022 Hepatitis C Screening 10/18/2022 Social Influencers of Health Screening 10/18/2022 Colorectal Cancer Screening: Stool Based Tests (FOBT/FIT) 06/05/2023 06/05/2022 COVID-19 Vaccine (4 - 2023-2 5 season) 2024 10/10/2021, 01/01/2021, 12/04/2020 Influenza Vaccine (#1) 2024 , 09/10/2017, 09/10/2016 DTaP,Tdap,and Td Vaccines (2 - Td or Tdap) 01/11/2026 01/12/2016 MMR Vaccines Aged Out 04/02/2021, 02/27/2021 No longer eligible based on patient's age to complete this topic HIB Vaccines Aged Out No longer eligi ble based on patient's age to complete this topic HPV Vaccines Aged Out No longer eligi ble based on patient's age to complete this topic Hepatitis A Vaccines Aged Out No long er eligible based on patient's age to complete this topic IPV Vaccines Aged Out No longer eligi ble based on patient's age to complete this topic Meningococcal ACWY Vaccine Aged Out N o longer eligible based on patient's age to complete this topic Meningococcal B Vacine Aged Out No lo nger eligible based on patient's age to complete this topic Pneumococcal Vaccine: Pediatrics (0 to 5 Years) and At-Risk Patients (6 to 64 Years) Aged Out No longer eligible b ased on patient's age to complete this topic RSV Immunization Patients Under 20 months Aged Out No longer eligible b ased on patient's age to complete this topic Varicella Vaccines Aged Out No longer eligible based on patient's age to complete this topic Care Teams Guard Immigration Relationship Specialty Start Date End Date Chaka Gutierres III, MD PCP - General Internal Medicine 02/09/21
--- OUTSIDE RECORDS SUMMARY | 2025-01-03 10:44 | XMS_ITS | Data Portability ---
Author Organization [place] [facility] [place] Betty Sullivan [place], [facility] Address [address] [place] [address] Assessment No assessment recorded. Plan of Treatment Reminders Order Date Submit Date Provider Last Modified By Organization Details Last Modified Time Details Appointments [facility] [place] t 2024 10:30A M Chaka Gutierres III, MD Not available Not available Not available Lab PSA, seru m or plas ma 2023 [email or web address] [facility], [address] [place] [address], [id number], 08/16/2024 10:32:48 lipi d pane l, seru m 2023 024 [email or web address] [facility], [address] [place] [address], [id number], 08/16/2024 10:32:48 hepa tic func tion pane l, seru m 2023 024 [email or web address] [facility], [address] [place] [address], [id number], 08/16/2024 10:32:48 hepa rhona s C viru s Ab, seru m 2023 024 MAGNO [facility], [address] [place] [address], [address], 08/16/2024 10:37:02 CBC w/ auto diff 2023 024 [email or web address] [facility], [address] [place], [address], 08/16/2024 10:32:48 CMP, seru m or plas ma 2023 [email or web address] [facility], [address] [place], [address], 08/16/2024 10:32:48 TSH, seru m or plas ma 2023 [email or web address] [facility], [address] , [place], [address], 08/16/2024 10:32:48 HbA1 c (hem oglo bin A1c) , bloo d 2023 [email or web address] [facility], [address] [place], [address], 08/16/2024 10:32:48 urin malu is, dips tick [address] [facility]*, [address] [facility], [address], [address], 08/16/2024 10:32:48 Referral None dorian rded . Procedures None dorian rded . Surgeries None dorian rded . Imaging elec troc tayla olmstead ECG, 12 lead s min 2023 [facility]*, [address] [facility], [address], [address], 08/16/2024 11:18:26 Medication Orders None dorian rded . Patient TargetsNo targets recorded. Patient Instructions Encounter Date Encounter Id Patient Instructions Last Modified By Organization Details Last Modified Time 08/16/2024 [id number] Golfer's elbow, also known as medial epicondylitis, is a condition that causes pain on the inside of the elbow and forearm. It's usually caused by repetitive or strenuous movements, such as playing golf, doing manual work, or using a computer mouse [email or web address] Not available 08/16/2024 10:57:09 Reason for Referral None Reported. Results Created Date Observation Date Name Description Value Unit Range Abnormal Flag Note LastModifiedBy Organization Detail LastModifiedTime 08/16/2008/16/2024 urina lysis , dipst ick Unknown Analyte negati ve Not Available [facility]* [address] [address], [place], [address], 08/12/2024 15:13:59 08/16/2008/16/2024 urina lysis , dipst ick Unknown Analyte neg Not Available [facility] Office* [address] [place], [address], 08/12/2024 15:13:59 08/16/2008/16/2024 urina lysis , dipst ick Unknown Analyte neg Not Available [facility] [address] [place], [address], 08/12/2024 15:13:59 08/16/2008/16/2024 urina lysis , dipst ick Unknown Analyte 1.020 Not Available [facility] [address] [place], [address], 08/12/2024 15:13:59 08/16/2008/16/2024 urina lysis , dipst ick Unknown Analyte neg Not Available [facility] [address] [place], [address], 08/12/2024 15:13:59 08/16/2008/16/2024 urina lysis , dipst ick Unknown Analyte 6.0 Not Available [facility]* [address], [place], [address], 08/12/2024 15:13:59 08/16/2008/16/2024 urina lysis , dipst ick Unknown Analyte neg Not Available [facility]* [address], [place], [address], 08/12/2024 15:13:59 08/16/2008/16/2024 urina lysis , dipst ick Unknown Analyte normal : 0.2-1. 0 Not Available [facility]* [address], [place], [address], 08/12/2024 15:13:59 08/16/2008/16/2024 urina lysis , dipst ick Unknown Analyte negati ve Not Available [facility]* [address], [place], [address], 08/12/2024 15:13:59 08/16/2008/16/2024 urina lysis , dipst ick Unknown Analyte neg Not Available [facility]* [address] [facility], [place], [address], 08/12/2024 15:13:59 08/12/20 elect rocar diogr am, routi ne ECG, 12 leads min No observ ation record ed. MAGNO [facility]* [address], [place], [address], 08/16/2024 11:15:10 08/16/2008/16/2024 elect rocar diogr am, routi ne ECG, 12 leads min No observ ation record ed. MAGNO [facility]* [address], [place], [address], 08/16/2024 12:07:56 Result Notes None recorded. Problems Name Problem SNOMED Code Status Onset Date Resolution Date Notes Provider Name and Address Organization Details Recorded Time Vernell bowers 88049891 Active 2020 Bel brody Not Available [facility] 4 19:48:44 Lacerati on of esophagu s 805624830 Active 2023 Esophagus tear Not Available [facility] 4 19:48:44 Furuncle 719442757 Active 2022 Boil Not Available [facility] 4 19:48:44 Benign neoplasm of soft tissue 89439223 Active 2015 Multiple nevi - Overview: Formattin g of this note might be different from the original. 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 Not Available [facility] 4 19:48:45 Nodule of lung 040759724 Active 2023 Pulmonary nodule less than 1 cm in diameter with low risk for malignant neoplasm Not Available [facility] 4 19:48:45 Dyslipid emia 530241170 Active 2015 Dyslipide marie Not Available [facility] 4 19:48:45 Urticari a 103227096 Active 2020 Urticaria Not Available [facility] 4 19:48:45 Gastriti s 4329765 Active 2015 Gastritis Not Available [facility] 4 19:48:45 Gastro-e sophagea l reflux disease with esophagi tis 016920135 Active 2015 Gastroeso phageal reflux disease with esophagit is Not Available [facility] 4 19:48:45 Carbuncl e 246117306 Active 2022 Carbuncle Not Available [facility] 4 19:48:46 Patient encounte r status 504696412 Active 2015 Routine general medical examinati on at a health care facility Not Available [facility] 4 19:48:46 Medial epicondy litis of left elbow joint 69184202665 9107 Active 2023 Chaka Gutierres III, MD [address] [place] [address],[address], [address], [place] [facility] 4 10:57:32 Medial epicondy litis of right elbow joint 57528405492 9109 Active 2023 Chaka Gutierres III, MD [address] [place] [address],[address], [address], [place] [facility] 4 11:01:15 Problem Notes None recorded. Procedures Surgical History None recorded. Imaging Results Imaging Date Name Status LastModified by Organiz [facility] Details LastModified Time 08/12/2024 electrocardi ogram, routine ECG, 12 leads min completed [facility] Office* [address], [address], 08/16/2024 11:15:10 08/16/2024 electrocardi ogram, routine ECG, 12 leads min completed [facility] Office* [address], [address], 08/16/2024 12:07:56 Procedure Notes None recorded. Medical Equipment None Reported. Allergies Allergen ID Allergen Name Allergen Category Reaction Reaction Severity Criticality Documentation Date Start Date Code Code System Note Provider Name and Address Organization Details Recorded Time 223982 hydrocodo ne Not available Not available Not available Not available 01/27/20242020 5489 RxNorm React ion: Hives , sever ity: Unkno wn Not Available Not Available Not Available Medications Name Sig Start Date Stop Date Status Note LastModified by Organization Details LastModified Time hydrocodone 5 mg-acetamino phen 325 mg tablet Take 1-2 tablets by mouth every 4 (four) hours as needed. 09/03 completed Not Available Not Available Not Available omeprazole 40 mg capsule,preet yed release 08/16 completed Not Available Not Available Not Available doxycycline monohydrate 100 mg tablet Take 1 tablet (100 mg total) by mouth 2 (two) times a day. Take with food 09/22 completed Not Available Not Available Not Available tramadol 50 mg tablet TAKE 50 MG BY MOUTH EVERY 6 (SIX) HOURS NEEDED FOR PAIN. 08/16 completed Not Available Not Available Not Available cephalexin 500 mg capsule Take 1 capsule (500 mg total) by mouth 4 (four) times a day for 10 days. 08/16 completed Not Available Not Available Not Available esomeprazole magnesium 40 mg capsule,preet yed release Take 1 capsule every day by oral route. active Not Available Not Available No t Available amoxicillin 875 mg-potassium clavulanate 125 mg tablet Take 1 tablet by mouth 2 (two) times a day. 09/09 completed Not Available Not Available Not Available pregabalin 50 mg capsule Take 50 mg by mouth. 09/10 completed Not Available Not Available Not Available doxycycline hyclate 100 mg tablet,delay ed release Take 1 tablet (100 mg total) by mouth 2 (two) times a day. 10/31 completed Not Available Not Available Not Available Vitals Date Recorded Body height Body mass index (BMI) Body weight Heart rate Oxygen saturation Oxygen saturation in Arterial blood by Pulse oximetry Body temperature Systolic blood pressure Diastolic blood pressure Provider Name and Address Organization Details Last Updated DateTime 4 170.18 cm 28.1 kg/m2 50600.1 3 g 64 /min 98 % 98 % 98.4 [degF] 120 mm[Hg] 70 mm[Hg] Katrina Flanagan [place] - [facility] 10:37:18 Social History Question Answer Notes LastModified by Organizat ion Details LastModified Time Tobacco Smoking Status Never Smoker Not Available [facility] 02/01/2024 04:20:43 What Is Your Level Of Alcohol Consumption? Occasional Information not available 08/16/2024 Are You Blind Or Do You Have Difficulty Seeing? No Information n ot available 2024 Are You A Caregiver? No Information not available 08/16/2024 Are You Currently Employed? Yes Information not available 08/16/2024 Are You Deaf Or Do You Have Serious Difficulty Hearing? No Information not available 2024 Have You Processed Blood Or Body Fluids From An Ebola Virus Disease Patient Without Appropriate PPE? No Information not available 2024 Do You Reside In Or Have You Traveled To An Area Where Ebola Virus Transmission Is Active? 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 (If Yes, Determine The Name Of The Ship, Ports Of Call And Dates.) No Information not available 2024 Have You Or A Member Of Your Household Traveled Elsewhere In The [place] In The Past 21 Days? (If Yes, Obtain The City, State And Dates.) No Information no t available 2024 Were You Or A Member Of Your Household Advised To Self-quarantine For COVID-19 By Government Officials Or Healthcare Providers? (If Yes, Obtain Information About Why The Recommendation Was Made, When The Recommendation Was Made, Whether The Person Quarantined, When Any Symptoms Started And Stopped And The Current Health Status Of The Person Who Was Advised.) No Information not available 2024 Have You Or A Member Of Your Household Had Any Of The Following Symptoms In The Last 21 Days: Sore Throat, Cough, Chills, Body Aches For Unknown Reasons, Shortness Of Breath For Unknown Reasons, Loss Of Smell, Loss Of Taste, Fever, Temperature At Or Greater Than 100 Degrees Fahrenheit? (If Yes, Obtain Information About Who Had The Symptoms, What The Symptoms Were, When The Symptoms Started, When The Symptoms Stopped.) No Information n ot available 2024 Have You Or A Member Of Your Household Cared For An Individual Who Is In Quarantine Or Is A Presumptive Positive Or Has Tested Positive For COVID-19? (If Yes, Obtain The Status Of The Person Cared For, When The Care Occurred, What The Care Was.) No Information not available 2024 Have You Or A Member Of Your Household Visited Or Received Treatment In A Hospital, Retirement, Long-term Care, Or Other Health Care Facility In The Past 30 Days? (If Yes, Obtain The Facility Name, Location, Reason For Visit/treatment And Dates.) No Information not available 2024 Have You Or A Member Of Your Household Been Tested For COVID-19? (If Yes, Obtain The Date Of Test, Results Of The Test, Whether The Person Is Currently In Quarantine And The Status Of The Person? s Symptoms.) No Information not available 2024 Do You Have Any Reason To Believe You Or A Member Of Your Household Has Been Exposed To Or Acquired COVID-19? (If Yes, Obtain Information About The Believed Source Of The Potential Exposure And Any Signs That The Person Acquired The Virus.) No Information not available 2024 Are You Or A Member Of Your Household Healthcare Providers Or Emergency Responders? (If Yes, Find Out What Type Of Work The Person Does And Whether The Person Is Still Working. For Example, ICU Nurse Actively Working Versus A Furloughed Sales Service Assistant.) No Information not available 2024 Have You Or A Member Of Your Household Traveled Outside The [place] In The Past 30 Days? (If Yes, Obtain The City, Country And Dates.) No Information not available 2024 Have You Or A Member Of Your Household Been Advised To Be Tested For COVID-19 By Government Officials Or Healthcare Providers? (If Yes, Obtain Information About Why The Recommendation Was Made, When The Recommendation Was Made, Whether The Testing Occurred, When Any Symptoms Started And Stopped And The Current Health Status Of The Person Who Was Advised.) No Information not available 2024 To The Best Of Your Knowledge Have You Been In Close Proximity To Any Individual Who Tested Positive For COVID-19? (If Yes, Obtain Information About When The Contact Occurred, What The Contact Was, How Long The People Were In Contact And When The Diagnosis Occurred.) No Information not available 2024 What Was The Date Of Your Most Recent Tobacco Screening? 08/16/2024 Information not available 08/16/2024 How Many Children Do You Have? 2 Information not available 08/16/2024 What Is Your Relationship Status? Information not available 08/16/2024 Do You Use Your Seat Belt Or Car Seat Routinely? Yes Information not available 2024 Do You Feel Stressed (tense, Restless, Nervous, Or Anxious, Or Unable To Sleep At Night)? [id number] Information not available 2024 Do You Use Any Illicit Or Recreational Drugs? No Information not available 2024 Has Tobacco Cessation Counseling Been Provided? Yes Information not available 08/16/2024 On What Date Was Tobacco Cessation Counseling Provided? 08/16/2024 Information not available 08/16/2024 Do You Or Have You Ever Used Any Other Forms Of Tobacco Or Nicotine? No Information not available 2024 How Many Days In The Past Year Have You Consumed 5 Or More Drinks? 0 Information not available 08/16/2024 Sex: Male Functional Status Question Answer Note LastModified by Organizat ion Details LastModified Time Do you have difficulty walking or climbing stairs? No Information not available 2024 Do you have transportation difficulties? No Information not available 2024 Are you able to walk? YESWOREST Information not available 2024 Do you have difficulty doing errands alone? No Information not available 2024 Are you able to care for yourself? Yes Information not available 2024 Do you have difficulty dressing or bathing? No Information not available 2024 Mental Status Question Answer Note LastModified by Organization D etails LastModified Time Do you have difficulty concentrating, remembering or making decisions? No Information no t available 2024 Family History Nothing Reported Notes:Problem: Hypertension Relation: Natural mother Problem: Hyperlipidemia Relation: Natural mother Problem: Learning disabilities Relation: Natural son Problem: Cancer Relation: Paternal Uncle Problem: Heart disease Relation: Natural father Problem: Hypertension Relation: Natural father Problem: Cancer Relation: Natural father Problem: COPD Relation: Maternal Uncle Problem: Hyperlipidemia Relation: Natural father Medical History No medical history recorded. Immunizations Vaccine Type Date Status Note Provider Nam e and Address Organization Details Recorded Time ap 6 completed Not Available [facility] 02/01/2024 09:51:56 Influenza, split virus, quadrivalent, preservative 6 completed Not Available [facility] 02/01/2024 09:51:56 Influenza, split virus, trivalent, preservative 7 completed Not Available [facility] 02/01/2024 09:51:57 COVID-19, mRNA, LNP-S, PF, 100 mcg/0.5mL dose or 50 mcg/0.25mL dose 1 completed Not Available [facility] 02/01/2024 09:51:58 COVID-19, mRNA, LNP-S, PF, 100 mcg/0.5mL dose or 50 mcg/0.25mL dose 1 completed Not Available [facility] 02/01/2024 09:51:58 MMR 1 completed Not Available [facility] 02/01/2024 09:51:58 MMR 1 completed Not Available [facility] 02/01/2024 09:51:59 Influenza, split virus, quadrivalent, preservative 1 completed Not Available [facility] 02/01/2024 09:52:00 COVID-19, mRNA, LNP-S, PF, 100 mcg/0.5mL dose or 50 mcg/0.25mL dose 1 completed Not Available [facility] 02/01/2024 09:52:00 Past Encounters Encounter ID Performer Location Encounter Start Date Encounter Closed Date Diagnosis/Indication Diagnosis SNOMED-CT Code Diagnosis ICD10 Code Diagnosis Note [id number] Evan Gutierres III, MD [facility] er Office* [address] [facility] [address] [place] [address] 08/16/2024 10:16:55 08/16/2024 11:18:26 Dyslipidemia 105897911 E78.5 diet Gastro-eso phageal reflux disease with esophagitis 498029743 K21.00 ppi/ had endoscopy Screening for malignant neoplasm of prostate 325298355 Z12.5 Adult heal th examination 780851417 Z00.00 Hepatitis C screening 41 1494125 Z11.59 Medial epi condylitis of right elbow joint 9246424153 98033 M77.01 info given Health Concerns Section Related Observation LastModified by Organization Detai ls LastModified Time None Recorded Concern Status LastModified by Organization Details LastModified Time None Recorded Advance Directives Directive None Recorded Payers Encounter Date Sequence Insurance Name Policy Number Policy Clarke Covered Member ID Clarke Member ID Guarantor Name 08/16/2024 1 [id number] Eugene Guerrero [id number] Eugene Guerrero
== END 2025-01-03 10:47 | disposition home or self-care (01) ==
PROVIDERS: PCP Internal Medicine; Visit Provider Internal Medicine Gastroenterology
DX: K63.5 Polyp of colon (principal)
CPT/HCPCS: 99213

== ENCOUNTER 2025-08-12 07:14 | Outpatient (REF) | payer OTHER, SELFPAY ==
--- OUTSIDE RECORDS SUMMARY | 2025-08-12 07:17 | XMS_ITS | Clinical Summary ---
Author Organization [facility] Address [address] [place] [address] Care Team Providers Care Cost Control Supervisor Name Role Phone Bhavik HAQUE MD, [place] [facility] Provi holden Allergies Active Allergy [...] Multiple nevi 12/29/2015 Overview: She sees a payroll coordinator yearly Resolved Problems Problem Noted Date Diagnosed [...] Name Comments Cancer Father age 69 of [place] colon ca Heart disease Father age 69 of [place] Hyperlipidemia Father age 69 of [place] Hypertension Father age 69 of [place] COPD Maternal Uncle Hyperlipidemia Mother Hypertension Mother Cancer Paternal Uncle Learning disabilities Son Relation Name Status Comments Father age 69 of [place] Maternal Uncle Mother Paternal Uncle Son Social [...] 59 12/02/2023 10:30 AM EST Temperature 36.6 C (97.8 F) 12/02/2023 10:30 AM EST Respiratory Rate - - Oxygen Saturation 98% [...] Vaccine (1 of 2 - PCV) 1985 BMI Counseling 08/13/2024 08/13/2023, 02/2023, 06/05/2022, Additional history exists Depression Screening 08/13/2024 08/13/2023, 06/05/2022, 05/30/2021, Additional history exists Preventative Health Evaluation 08/13/2024 08/13/2023, 08/13/2023, 06/05/2022, Additional history exists COVID-19 Vaccine ( season) 2025 10/10/2021, 01/01/2021, 12/04/2020 Influenza Vaccine (#1) 2025 , 09/10/2017, 09/10/2016 DTap / Tdap / Td (2 - Td or Tdap) 01/11/2026 01/12/2016 Colon Cancer Screening (Colonoscopy) 08/25/2029 08/25/2019 RSV Ped < 20 months Aged Out No longe r eligible based on patient's age to complete this topic Care Teams Cost Control Supervisor Relationship Specialty Start Date End Date Chaka Gutierres III, MD PCP - General Internal Medicine 02/09/21
--- OUTSIDE RECORDS SUMMARY | 2025-08-12 07:17 | XMS_ITS ---
Author Name [facility] Organization Unknown Results Test Name/Text Value Interpretation Date Range Source CLIENT EDUCATION TRACKING Normal 09/29/2023 [facility] Bacteria Spec Anaerobe Cult SEE NOTE Normal 09/29/2023 [facility] Bacteria Spec Aerobe Cult SEE NOTE Abnormal 09/29/2023 [facility] Allergies Allergen Reaction Severity Comment Documented Date Source Statu s HYDROCODONE [facility] Immunizations Vaccine Date Source Lot Number Status SARS-COV-2 (COVID-19) vaccin e, mRNA, spike protein, LNP, preservative free, 100 mcg/0.5mL dose 10/10/2021 [facility] completed influenza, injectable, quadr ivalent, contains preservative 09/26/2021 [facility] completed measles, mumps and rubella virus vaccine 04/02/2021 [facility] completed measles, mumps and rubella virus vaccine 02/27/2021 [facility] completed SARS-COV-2 (COVID-19) vaccin e, mRNA, spike protein, LNP, preservative free, 100 mcg/0.5mL dose 01/01/2021 [facility] completed SARS-COV-2 (COVID-19) vaccin e, mRNA, spike protein, LNP, preservative free, 100 mcg/0.5mL dose 12/04/2020 [facility] completed influenza, seasonal, injectable 09/10/2017 [facility] completed influenza, injectable, quadr ivalent, contains preservative 09/10/2016 [facility] completed tetanus toxoid, reduced diph theria toxoid, and acellular pertussis vaccine, adsorbed 01/12/2016 [facility] [id number] completed Encounters Encounter Type Encounter Reason Primary Diagnosis Location Date Ambulatory Encounter for follow-up examination after completed treatment for conditions other than malignant neoplasm [facility] 09/13/2021 Inpatient Pleural effusion , not elsewhere classified [facility] 08/16/2021 Emergency Pleural effusion , not elsewhere classified [facility] 08/13/2021 Care Team Organization Name Specialty Phone Email Start Date End Da angelia [facility] JACIEL FLOYD III [facility] 12/17/2022 06/28/2024 [facility] JACIEL FLOYD III [facility] 09/13/2021 06/28/2024 [facility] 08/13/2021 09/13/2021
--- OUTSIDE RECORDS SUMMARY | 2025-08-12 07:17 | XMS_ITS | Data Portability ---
Author Organization [place] [facility] [place] [facility] Sullivan [facility]nicut, [facility] Address [address] [place] [address] Assessment No assessment recorded. Plan of Treatment Reminders Order Date Submit Date Provider Last Modified By Organization Details Last Modified Time Details Appointments Well eduard wahl 2024 10:30A M Chaka Gutierres III, MD Not available Not available Not available Lab PSA, seru m or plas ma 2023 [email or web address] [facility], [address] [place] [address], [id number], 08/16/2024 10:32:48 lipi d pane l, seru m 2023 [email or web address] [facility], [address] [place] [address], [id number], 08/16/2024 10:32:48 hepa tic func tion pane l, seru m 2023 024 [email or web address] [facility], [address] [place] [address], [id number], 08/16/2024 10:32:48 hepa rhona s C viru s Ab, seru m 2023 024 MAGNO [facility], [address] [place] [address], [id number], 08/16/2024 10:37:02 CBC w/ auto diff 2023 [email or web address] [facility], [address] [place], [address], 08/16/2024 10:32:48 CMP, seru m or plas ma 2023 024 [email or web address] [facility], [address] [place], [address], 08/16/2024 10:32:48 TSH, seru m or plas ma 2023 [email or web address] [facility], [address] [facility], [address], 08/16/2024 10:32:48 HbA1 c (hem oglo bin A1c) , bloo d 2023 [email or web address] [facility], [address] [place], [address], 08/16/2024 10:32:48 urin malu is, dips tick [email or web address]*, [address] [facility], [address], [address], 08/16/2024 10:32:48 Referral None dorian rded . Procedures None dorian rded . Surgeries None dorian rded . Imaging elec troc tayla olmstead ECG, 12 lead s min [address] [facility]*, [address] [facility], [address], [address], 08/16/2024 11:18:26 Medication Orders None dorian rded . Patient TargetsNo targets recorded. Patient Instructions Encounter Date Encounter Id Patient Instructions Last Modified By Organization Details Last Modified Time 08/16/2024 [id number] Golfer's elbow, also known as medial epicondylitis, [...] Not Available [facility]* [address] [place], [address], 08/12/2024 15:13:59 08/16/2008/16/2024 urina lysis , dipst ick Unknown Analyte neg Not Available [facility] [address] [place], [address], 08/12/2024 15:13:59 08/16/2008/16/2024 urina lysis , dipst ick Unknown Analyte neg Not Available [facility]* [address] [place], [address], 08/12/2024 15:13:59 08/16/2008/16/2024 urina lysis , dipst ick Unknown Analyte 1.020 Not Available [facility]* [address] [place], [address], 08/12/2024 15:13:59 08/16/2008/16/2024 urina lysis , dipst ick Unknown Analyte neg Not Available [facility] [address] [place], [address], 08/12/2024 15:13:59 08/16/20 24 08/16/2024 urina lysis , dipst ick Unknown Analyte 6.0 Not Available [facility]* [address], [place], [address], 08/12/2024 15:13:59 08/16/2008/16/2024 urina lysis , dipst ick Unknown Analyte neg Not Available [facility]* [address], [place], [address], 08/12/2024 15:13:59 08/16/2008/16/2024 urina lysis , dipst ick Unknown Analyte normal : 0.2-1. 0 Not Available [facility]* [address], [place], [address], 08/12/2024 15:13:59 08/16/20 24 08/16/2024 urina lysis , dipst ick Unknown Analyte negati ve Not Available [facility]* [address], [place], [address], 08/12/2024 15:13:59 08/16/2008/16/2024 urina lysis , dipst ick Unknown Analyte neg Not Available [facility]* [address], [place], [address], 08/12/2024 15:13:59 08/12/20 elect rocar diogr am, routi ne ECG, 12 leads min No observ ation record ed. MAGNO [facility]* [address], [place], [address], 08/16/2024 11:15:10 08/16/20 24 08/16/2024 elect rocar diogr am, routi ne ECG, 12 leads min No observ ation record ed. MAGNO [facility]* [address], [place], [address], 08/16/2024 12:07:56 05/03/20 25 elect wilver cyndi am, routi ne ECG, 12 leads min No observ ation record ed. [email or web address] [facility]* [address], [place], [address], 05/03/2025 12:00:44 Result Notes None recorded. 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 She sees a dermatolo gist yearly Not Available [facility] 4 19:48:44 Dyslipid emia 609655855 Active 2015 Dyslipide marie Not Available [facility] 4 19:48:45 Gastriti s 0470685 Active 2015 Gastritis Not Available [facility] 4 19:48:45 Gastro-e sophagea l reflux disease with esophagi tis 662311702 Active 2015 Gastroeso phageal reflux disease with esophagit is Not Available [facility] 4 19:48:45 Patient encounte r status 801728395 Active 2015 Routine general medical examinati on at a health care facility Not Available [facility] 4 19:48:46 Splenome elissa 63088032 Active 2020 Splenomeg ronn Not Available [facility] 4 19:48:44 Urticari a 974816546 Active 2020 Urticaria Not Available [facility] 4 19:48:45 Furuncle 663199372 Active 2022 Boil Not Available [facility] 4 19:48:44 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 Not Available [facility] 4 19:48:45 Carbuncl e 491387711 Active 2022 Carbuncle Not Available [facility] 4 19:48:46 Cellulit is of left axilla 23752131815 915811 Active 2022 Celluliti s of left axilla Not Available [facility] 4 19:48:45 Lacerati on of esophagu s 181065133 Active 2023 Esophagus tear Not Available [facility] 4 19:48:44 Nodule of lung 281322984 Active 2023 Pulmonary nodule less than 1 cm in diameter with low risk for malignant neoplasm Not Available [facility] 4 19:48:45 Left medial elbow tendinop athy 74815046156 9107 Active 2023 Chaka Gutierres III, MD [address] [place] [address], [address], [place] [facility] 4 10:57:32 Right medial elbow tendinop athy 07492131231 9109 Active 2023 Chaka Gutierres III, MD [address] [place] [address], [address], [place] [facility] 4 11:01:15 Problem Notes None recorded. Medical Equipment None Reported. Allergies Allergen ID Allergen Name Allergen Category Reaction Reaction Severity Criticality Documentation Date Start Date Code Code System Note Provider Name and Address Organization Details Recorded Time 675116 hydrocodo ne Not available Not available Not available Not available 01/27/20242020 5489 RxNorm React ion: Hives , sever ity: Unkno wn Not Available [facility] 4 19:06:39 Medications Name Sig Start Date Stop Date [...] blood by Pulse oximetry Body temperature Systolic And Diastolic Provider Name and Address Organization Details Last Updated DateTime 4 170.18 cm 28.1 kg/m2 98057.1 3 g 64 /min 98 % 98 % 98.4 [degF] 120/70 mm[Hg] Katrina Flanagan [place] [facility] 4 10:37:18 Social History Question Answer Notes LastModified by Organizat ion Details LastModified Time Tobacco Smoking Status Never Smoker Not Available [facility] 02/01/2024 04:20:43 Are You Blind Or Do You Have Difficulty Seeing? No Information not available 2024 Are You A Caregiver? No Information not available 08/16/2024 Are You Deaf Or Do You Have Serious Difficulty Hearing? No Information not available 2024 Have You Processed Blood Or Body Fluids From An Ebola Virus Disease Patient Without Appropriate PPE? No Information not available 2024 Do You Reside In Or Have You Traveled To An Area Where Ebola Virus Transmission Is Active? 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 08/16/2024 Information n ot available 08/16/2024 How Many Children Do You Have? 2 Information not available 08/16/2024 What Is Your Relationship Status? Information not available 08/16/2024 Do You Use Your Seat Belt Or Car Seat Routinely? Yes Information not available 2024 Has Tobacco Cessation Counseling Been Provided? Yes Information not available 08/16/2024 On What Date Was Tobacco Cessation Counseling Provided? 08/16/2024 Information not available 08/16/2024 Do You Have Difficulty Walking Or Climbing Stairs? No Information not available 2024 How Many Days In The Past Year Have You Consumed 5 Or More Drinks? 0 Information not available 08/16/2024 Sex: Male Functional Status Question Answer Note LastModified by Organizat ion Details LastModified Time Do you use any illicit or recreational drugs? No Information not available 2024 Do you or have you ever used any other forms of tobacco or nicotine? No Information not available 2024 What is your level of alcohol consumption? Occasional Information not available 08/16/2024 Are you currently employed? Yes Information not available 08/16/2024 Do you have transportation difficulties? No Information not available 2024 Are you able to walk independently without assistance or assistive devices? YESWOREST Information not available 2024 Do you have difficulty doing errands alone? No Information not available 2024 Are you able to care for yourself independently? 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 No Information not available 2024 Mental Status Question Answer Note LastModified by Organizat ion Details LastModified Time Do you feel stressed (tense, restless, nervous, or anxious, or unable to sleep at night)? [id number] Information not available 2024 Do you have difficulty concentrating, remembering or [...] e and Address Organization Details Recorded Time Tdap 6 completed Not Available [facility] 02/01/2024 09:51:56 Influenza, split virus, quadrivalent, preservative 6 completed Not Available [facility] 02/01/2024 09:51:56 Influenza, split virus, trivalent, preservative 7 completed Not Available [facility] 02/01/2024 09:51:57 COVID-19, mRNA, LNP-S, PF, 100 mcg/0.5mL dose or 50 mcg/0.25mL dose 1 completed Not Available [facility] 02/01/2024 09:51:58 COVID-19, mRNA, LNP-S, PF, 100 mcg/0.5mL dose or 50 mcg/0.25mL dose 1 completed Not Available [facility] 02/01/2024 09:51:58 MMR 1 completed Not Available [facility] 02/01/2024 09:51:58 MMR 1 completed Not Available [facility] 02/01/2024 09:51:59 Influenza, split virus, quadrivalent, preservative 1 completed Not Available [facility] 02/01/2024 09:52:00 COVID-19, mRNA, LNP-S, PF, 100 mcg/0.5mL dose or 50 mcg/0.25mL dose 1 completed Not Available [facility] 02/01/2024 09:52:00 Past Encounters Encounter ID Performer Location Encounter Start Date Encounter Closed Date Diagnosis/Indication Diagnosis SNOMED-CT Code Diagnosis ICD10 Code Diagnosis IMO Codes Diagnosis Note [id number] MD ABBE Grimes III_[facility] er Office* [address] [address] 08/16/2024 10:16:55 08/16/2024 11:18:26 Dyslipidemia 419394466 E78.5 diet Gastro-eso phageal reflux disease with esophagitis 139245063 K21.00 ppi/ had endoscopy Screening for malignant neoplasm of prostate 711819002 Z12.5 Adult heal th examination 386411159 Z00.00 Hepatitis C screening 41 2189436 Z11.59 Right medi al elbow tendinopathy 3273480494 66675 M77.01 info given Health Concerns Section Related Observation LastModified by Organization Detai ls LastModified Time None Recorded Concern Status LastModified by Organization Details LastModified Time None Recorded Advance Directives Directive None Recorded Payers Insurance Date Sequence Insurance Name Policy Number Policy Clarke Covered Member ID Clarke Member ID Guarantor Name 08/23/2024 1 [facility] [facility] [id number] [address] Guerrero [id number] Eugene Guerrero
--- OUTSIDE RECORDS SUMMARY | 2025-08-12 07:18 | XMS_ITS | Clinical Summary ---
Author Organization [facility] Address [address] [place] [address] Care Team Providers Care Retail Sales Associate Name Role Phone Bhavik HAQUE MD, [facility] Surgical History Surgery Date Site/Laterality Comments [...] nevi 12/29/2015 DX:Multiple nevi ;COMMENT:She sees a work order sorting clerk yearly Internal hemorrhoids DX:Internal hemorrhoids Fracture of humerus, distal, left, closed DX:Fracture of humerus, dist al, left, closed Nail fungus DX:Nail fungus Family History Medical History Relation Name Comments Cancer Father age 69 [place] colon ca Heart disease Father age 69 [place] Hyperlipidemia Father age 69 [place] Hypertension Father age 69 [place] Cancer Father's Brother Hyperlipidemia Mother Hypertension Mother COPD Mother's Brother Learning disabilities Son Relation Name Status Comments Father age 69 of [place] Father's Brother Mother Mother's Brother Son Social [...] series) 1998 Cholesterol Screening (Lipid Panel) 10/18/2022 Colorectal Cancer Screening: Colonoscopy 10/18/2022 HIV Screening 10/18/2022 Hepatitis C Screening 10/18/2022 Social Influencers of Health Screening 10/18/2022 Depression Screening 11/10/2024 COVID-19 Vaccine (4 - 2024-2 6 season) 2025 10/10/2021, 01/01/2021, 12/04/2020 Influenza Vaccine (#1) 2025 , 09/10/2017, 09/10/2016 DTaP,Tdap,and Td Vaccines (2 - Td or Tdap) 01/11/2026 01/12/2016 RSV Immunization Adult Patients (1 - 1-dose 75+ series) 2054 MMR Vaccines Aged Out 04/02/2021, 02/27/2021 No longer eligible based on patient's age to complete this topic Colorectal Cancer Screening: Stool Based Tests (FOBT/FIT) Discontinued 06/05/2022 HIB Vaccines Aged Out No longer eligi [...] age to complete this topic Meningococcal B Vaccine Aged Out No l onger eligible based on patient's age to complete this topic Pneumococcal Vaccine: Pediatrics (0 to 5 Years) and At-Risk Patients (6 to 49 Years) Aged Out No longer eligible based on patient's age to complete this topic RSV Immunization Patients Under 20 months Aged Out No longer eligible based on patient's age to complete this topic Varicella Vaccines Aged Out No longer eligible based on patient's age to complete this topic Care Teams Retail Sales Associate Relationship Specialty Start Date End Date Chaka Gutierres III, MD PCP - General Internal Medicine 02/09/21
--- OUTSIDE RECORDS SUMMARY | 2025-08-12 07:18 | XMS_ITS | Clinical Summary ---
Author Organization [facility] Address [address] [place] [address] Care Team Providers Care Wrapper Dipper Name Role Phone Bhavik HAQUE MD, [facility] holden Allergies Active Allergy Reactions Criticality Noted Date Comments Hydrocodone Hives Medium 08/16/2021 Medications acetaminophen (TYLENOL) 325 MG tabletIndication s:Pleural effusion on right Take 3 tablets (975 mg total) by mouth every 6 (six) hours around the clock. 360 tablet 1 Active loratadine (CLARITIN) 10 MG tabletIndication s:Pleural effusion on right Take 1 tablet (10 mg total) by mouth daily. Do not start before August 26, 2021. 30 tablet 1 Active methocarbamol (ROBAXIN) 500 MG tabletIndication s:Pleural effusion on right Take 1 tablet (500 mg total) by mouth 3 (three) times a day as needed for muscle spasms. 30 tablet 1 Active polyethylene glycol (miraLAx) 17 g packetIndication s:Pleural effusion on right Take 1 packet (17 g total) by mouth daily. Do not start before August 26, 2021. 10 packet 1 Active Lactobacillus acidophilus capsuleIndicatio ns:Pleural effusion on right Take 2 capsules by mouth 2 (two) times a day. 56 capsule 1 Active amoxicillin-clav ulanate (AUGMENTIN) 875-125 MG per tabletIndication s:Pleural effusion on right Take 1 tablet by mouth 2 (two) times a day. 28 tablet 1 Active HYDROmorphone (DILAUDID) 2 MG tabletIndication s:Pleural effusion on right Take 1 tablet (2 mg total) by mouth every 8 (eight) hours around the clock. Max Daily Amount: 6 mg 6 tablet 1 Active pregabalin (LYRICA) 50 MG capsuleIndicatio ns:Pleural effusion on right Take 1 capsule (50 mg total) by mouth 3 (three) times a day. 45 capsule 1 Active Active Problems Problem Noted Date Diagnosed [...] at Not on file Legal Sex Male 5:00 PM EDT Gender Identity Not on file Sexual Orientation Not on file Last Filed Vital Signs Vital Sign Reading Time Taken Comments Blood Pressure 112/79 09/13/2021 2:17 PM EDT Pulse 64 09/13/2021 2:17 PM EDT Temperature 35.7 C (96.3 F) 08/25/2021 11:49 AM EDT Respiratory Rate 16 09/13/2021 2:17 PM EDT [...] of 3 - 19+ 3-dose series) 1998 Colonoscopy 2024 Influenza Vaccine 06/10/2025 09/10/2017 COVID-19 Vaccine (3 - 2025-2 6 season) 2025 01/01/2021, 12/04/2020 HIV Screening Completed 08/17/2021 HPV Vaccines (No Doses Required) Completed Pneumococcal Vaccine: Pediatric (0-5 Years) and At-Risk [...] CMIA Nonreactive Nonreactive 08/20/2021 12:33 PM EDT [employer] Comment:Results show no evid ence of infection by HIV 1/2. If clinically indicated, repeat CMIA or test by nucleic acid amplification. Blood specimen (specimen) Serum specimen / Unknown 08/17/2021 1:10 PM EDT 08/17/2021 1:34 PM EDT us O[facility] BLOOD ORDERABLES Final Resul t HOSP[facility] [employer] [address] [place] [address] from Last 3 Months or Most Recently Relevant to Health Maintenance Insurance [facility] PPO BLUE CROSS COMPREHENSIVE Advance Directives * Full Code (Latest Code Status on File) Date Activated Date Inactivated Comments 08/16/2021 6:57 PM Question Answer Comments Decision Thoroughly Discussed with: Patient Care Teams Wrapper Dipper Relationship Specialty Start Date End Date Chaka Gutierres III, MD PCP - General Internal Medicine 08/13/21
[2025-08-12 07:37] LABS: MANUAL DIFF FLAG NO
[2025-08-12 08:25] LABS: Hematocrit 43.1 % (42.0-52.0); Hemoglobin 14.5 g/dl (14.0-18.0); Imm Gran Abs Auto 0.01 X10*3/uL (0.00-0.03); Imm Gran Pct Auto 0.2 % (0.0-0.4); Lymphocytes Absolute Auto 1.4 X10*3/uL (1.2-4.9); Mean Corpuscular HGB Conc 33.6 g/dl (31.0-36.0); Mean Corpuscular Hemoglobin 29.6 pg (27.0-33.0); Mean Corpuscular Volume 88.0 fL (80.0-98.0); NRBC Abs Auto 0.000 X10*3/uL (0.0-0.012); NRBC Pct Auto 0.0 /100WBC (0.0-0.2); Platelet Count 193 X10*3/uL (160-400); Red Blood Count 4.90 X10*6/uL (4.60-5.80); White Blood Count 5.3 X10*3/uL (4.8-10.8)
[2025-08-12 08:41] LABS: Hemoglobin A1C 116.1522 umol/L
[2025-08-12 09:07] LABS: Alanine Aminotransferase 21 U/L (0-40); Albumin Level 4.4 g/dL (3.5-5.0); Alkaline Phosphatase 44 U/L (39-117); Anion Gap 11 (12-20); Aspartate Amino Transferase 32 U/L (5-37); Blood Urea Nitrogen 18 mg/dL (9-16); Calcium 9.0 mg/dL (8.4-10.2); Carbon Dioxide 28 mmol/L (22-29); Chloride 105 mmol/L (96-108); Cholesterol 224 mg/dL (<200); Estimated Glomerular Filt Rate > 60; HDL Cholesterol 53 mg/dL (>40); Potassium 4.6 mmol/L (3.3-5.1); Sodium 139 mmol/L (135-145); Total Protein 7.4 g/dL (6.5-8.0); Triglycerides 112 mg/dL (<150)
[2025-08-12 09:13] LABS: PSA,Total (Free>4and<10) 0.21 ng/mL (0.00-4.00)
[2025-08-12 09:17] LABS: ~HepC Num1 0.09 S/CO (0.00-0.79); ~Hepatitis C Antibody Nonreactive (Nonreactive)
[2025-08-12 09:27] LABS: Reflex LDLD? No
== END 2025-08-12 07:15 | disposition home or self-care (01) ==
LOC: HO.LAB 07:14
PROVIDERS: PCP Internal Medicine; Visit Provider Internal Medicine
DX: Z00.00 Encounter for general adult medical examination without abnormal findings (principal); Z12.5 Encounter for screening for malignant neoplasm of prostate; Z11.59 Encounter for screening for other viral diseases; Z13.6 Encounter for screening for cardiovascular disorders; Z13.29 Encounter for screening for other suspected endocrine disorder; Z13.1 Encounter for screening for diabetes mellitus
CPT/HCPCS: 36415; 80053; 80061; 83036; 84153; 84443; 85025; 86803

== ENCOUNTER 2025-08-25 08:25 | Day surgery (SDC) | payer OTHER, SELFPAY ==
--- OUTSIDE RECORDS SUMMARY | 2025-08-16 10:07 | XMS_ITS | Clinical Summary ---
Author Organization [facility] Address [address] [place] [address] Care Team Providers Care Addictions Counselor Assistant Name Role Phone Bhavik HAQUE MD, [facility] Allergies Active Allergy [...] Multiple nevi 12/29/2015 Overview: She sees a locksmith apprentice yearly Resolved Problems Problem Noted Date Diagnosed [...] Name Comments Cancer Father age 69 of [place] colon ca Heart disease Father age 69 of [place] Hyperlipidemia Father age 69 [place] Hypertension Father age 69 of [place] COPD Maternal Uncle Hyperlipidemia Mother Hypertension Mother Cancer Paternal Uncle Learning disabilities Son Relation Name Status Comments Father age 69 of [place] Maternal Uncle Mother Paternal Uncle Son Social [...] age to complete this topic Care Teams Addictions Counselor Assistant Relationship Specialty Start Date End Date Chaka Gutierres III, MD PCP - General Internal Medicine 02/09/21
--- OUTSIDE RECORDS SUMMARY | 2025-08-16 10:07 | XMS_ITS | Clinical Summary ---
Author Organization [facility] Address [address] [place] [address] Care Team Providers Care Glass Mechanic Name Role Phone Bhavik HAQUE MD, [facility] Surgical History Surgery Date Site/Laterality [...] nevi 12/29/2015 DX:Multiple nevi ;COMMENT:She sees a wooden furniture polisher yearly Internal hemorrhoids DX:Internal hemorrhoids Fracture of humerus, distal, left, closed DX:Fracture of humerus, dist al, left, closed Nail fungus DX:Nail fungus Family History Medical History Relation Name Comments Cancer Father age 69 of [place] colon ca Heart disease Father age 69 of [place] Hyperlipidemia Father age 69 of [place] Hypertension Father age 69 of [place] Cancer Father's Brother Hyperlipidemia Mother Hypertension Mother COPD Mother's Brother Learning disabilities Son Relation Name Status Comments Father age 69 of [place] Father's Brother Mother Mother's Brother Son Social [...] Health Maintenance Due Date Last Done Comments Colorectal Cancer Screening: Colonoscopy 1979 Hepatitis B Vaccines (1 of 3 - 19+ 3-dose series) 1998 Cholesterol Screening (Lipid Panel) 10/18/2022 HIV Screening 10/18/2022 Hepatitis C Screening [...] age to complete this topic Care Teams Glass Mechanic Relationship Specialty Start Date End Date Chaka Gutierres III, MD PCP - General Internal Medicine 02/09/21
--- OUTSIDE RECORDS SUMMARY | 2025-08-16 10:07 | XMS_ITS | Clinical Summary ---
Author Organization [facility] Address [address] [place] [address] Care Team Providers Care Debeaker Name Role Phone Bhavik HAQUE MD, [facility] holden Allergies Active Allergy [...] CMIA Nonreactive Nonreactive 08/20/2021 12:33 PM EDT [employer] Comment:Results show no evid ence of infection by HIV 1/2. If clinically indicated, repeat CMIA or test by nucleic acid amplification. Blood specimen (specimen) Serum specimen / Unknown 08/17/2021 1:10 PM EDT 08/17/2021 1:34 PM EDT us Otoniel U [facility] BLOOD ORDERABLES Final Resul t HOSP[facility] LAB [employer] [address] [place] [address] from Last 3 Months or Most Recently Relevant to Health Maintenance Insurance [facility] PPO BLUE CROSS COMPREHENSIVE Advance Directives * Full Code (Latest Code Status on File) Date Activated Date Inactivated Comments 08/16/2021 6:57 PM Question Answer Comments Decision Thoroughly Discussed with: Patient Care Teams Debeaker Relationship Specialty Start Date End Date Chaka Gutierres III, MD PCP - General Internal Medicine 08/13/21
--- NOTE | 2025-08-23 12:41 | HO.ANESPROP2 ---
Documented by User: Dina Schumacher NP 08/23/25 12:42 HPI - Anesthesia Eval Consult details Narrative: 45yo F for Colonoscopy PMFSH Active Problems Active Problems: All Active Problems Colon polyps (Acute) Chest pain (Acute) Tenesmus (rectal) (Acute) Altered bowel habits (Acute) History of esophagitis (Acute) Past Medical History Medical History Atypical chest pain Hx of sinus bradycardia History of esophagitis Family History Family History Father Colon cancer CAD (coronary artery disease) Maternal Uncle Colon cancer Family history of problems with anesthesia: No Surgical History Surgical History Hx of colonoscopy Hx of vasectomy Hx of tonsillectomy History of lung surgery History of surgery on arm History of esophagogastroduodenoscopy (EGD) History of Problems with Anesthesia: No Social History Social History Household Members: Family Housing: House Alcohol intake: current Alcohol intake frequency: 0-2 drinks per day Alcohol type: beer Patient Tobacco Use Status: Never used Tobacco Use of substances other than those prescribed or required for medical reasons: Yes Substance Use Type: Marijuana Substance Use Frequency: Occasionally Advance Directives: No Advance Directives Information Provided: Yes Meds Allergies Allergy/AdvReac Type Severity Reaction Status Date / Time hydrocodone Allergy Hives Verified 01/03/25 10:12 Assessment and Plan Assessment Anesthesia Assessment: Chart Reviewed Final Anesthetic Review Family History of Problems with Anesthesia: No History of Problems with Anesthesia: No Documented by User: Deedee Miller MD 08/25/25 10:50 PMFSH Past Medical History Medical History Atypical chest pain Hx of sinus bradycardia History of esophagitis Family History Family History Father Colon cancer CAD (coronary artery disease) Maternal Uncle Colon cancer Surgical History Surgical History Hx of colonoscopy Hx of vasectomy Hx of tonsillectomy History of lung surgery History of surgery on arm History of esophagogastroduodenoscopy (EGD) Social History Social History Household Members: Family Housing: House Alcohol intake: current Alcohol intake frequency: 0-2 drinks per day Alcohol type: beer Patient Tobacco Use Status: Never used Tobacco Use of substances other than those prescribed or required for medical reasons: Yes Substance Use Type: Marijuana Substance Use Frequency: Occasionally Advance Directives: No Advance Directives Information Provided: Yes Meds Allergies Allergy/AdvReac Type Severity Reaction Status Date / Time hydrocodone Allergy Hives Verified 01/03/25 10:12 Exam Airway Mallampati Class: II TM Dist: >3cm Neck ROM: Full Heart: rrr Lungs: cta Assessment and Plan Assessment Anesthesia Assessment: Anesthesia Plan Discussed Final Anesthetic Review NPO: Yes ASA Class: II Final Preanesthetic Review: No Changes in Pt Med Stat, Meds/Allgs Chart Reviewed, Consent Obtained/Reviewed and Anes Risks/Benef Reviewed Patient Risk: Low Procedure Risk: Low Anesthetic Plan Anesthetic Plan: MAC: Disposition: Standard PACU
[2025-08-23 13:55] VITALS: BMI 28.3
[2025-08-25 09:04] VITALS: BMI 28.3
[2025-08-25 09:15] VITALS: BP 117/67; PULSE 52; RESP 16; TEMP 36.8; O2SAT 100
[2025-08-25] MEDS: Lactated Ringers 1,000 ML 100 ML IVCONT (09:15)
--- NOTE | 2025-08-25 09:23 | MHC.SHP ---
Pre-Procedural Eval Section A - 24 Hr Update-Section A only Date of Service: 08/25/25 Section B - Complete if H&P > 30 days Chief Complaint: screening Relevant Family History (Specify if Yes): Yes Relevant Social History: None Present Medications: see Short Stay Collaborative assessment Medical History: Significant History ( Hx of fracture of humerus Hx of sinus bradycardia History of esophagitis) History of Previous Operations: Relevant previous surgery/procedure and date(s) ( Hx of colonoscopy Hx of tonsillectomy Hx of vasectomy Hx of tonsillectomy History of lung surgery History of surgery on arm History of esophagogastroduodenoscopy (EGD) Hx of colonoscopy) Allergies: Allergies Allergy/AdvReac Type Severity Reaction Status Date / Time hydrocodone Allergy Hives Verified 01/03/25 10:12 Review of Systems Sugical H&P ROS: Negative: Constitution, Cardiovascular, Respiratory, Neurological, Psychiatric, Hem-Onc, Allergic/Immunologic, Gastrointestinal, Genitourinary, Musculoskeletal, Integumentary, Endocrine and Eyes/Ears/Nose/Throat Exam Surgical H&P Exam: Normal: HEENT, Normal: Heart, Normal: Lungs, Normal: Extremities, Normal: Abdomen, Normal: Skin and Normal: Neurological Plan Diagnosis/Plan: Unchanged I have reviewed the history and physical and performed a pertinent physical examination on my patient. No changes have occurred unless specified. Time Spent With Patient Time: Total time managing care of this patient today ____ minutes.
--- NOTE | 2025-08-25 10:17 | HO.OPN-COLON ---
Colonoscopy Operative Note Operative Note Date of Service: 08/25/25 Narrative: Operative Information Procedure Description: Colonoscopy Indication: FH of CRC Anesthesia: MAC COLONOSCOPY Instrument: Olympus variable stiffness pediatric scope 190L Colonoscopy Monitoring: Vital signs and clinical assessment, continuous EKG monitoring, Pulse oximetry, Carbon Dioxide monitoring and blood pressure monitoring were done throughout the procedure. Colon withdrawal time was 8 minutes. Procedure: The patient was placed in the left lateral decubitis position and pre-procedure medications were administered. After a digital rectal examination of the ano-rectum, the video colonoscope was inserted into the rectum and advanced through the colon to the cecum/TI. The colonoscope was slowly withdrawn in a retrograde panoramic fashion and the colon mucosa was carefully examined including a retroflexed view of the rectum. Findings and interventions are described below. Procedure Difficulty: easy Findings: Terminal Ileum-normal Cecum:normal right sided retroflexion- normal Ascending Colon: normal Transverse Colon -normal Descending Colon: 10 mm sessile polyp removed with cold snare Sigmoid Colon: normal Rectum: Retroflexion with small internal hemorrhoids seen, grade I Anorectum - normal Intervention: cold snare Colon preparation: [place] Bowel Preparation Scale Right colon; 2 Transverse colon: 2 Left colon; 2 (0 = Unprepared colon segment with mucosa not seen due to solid stool that cannot be cleared. 1 = Portion of mucosa of the colon segment seen, but other areas of the colon segment not well seen due to staining, residual stool and/or opaque liquid. 2 = Minor amount of residual staining, small fragments of stool and/or opaque liquid, but mucosa of colon segment seen well. 3 = Entire mucosa of colon segment seen well with no residual staining, small fragments of stool or opaque liquid) Impression and Post Procedure Diagnosis: colon polyp x 1 internal hemorrhoids Plan: High fiber diet leaflet Avoid straining at stool, epsom salts and sitz bath, anusol supps or cream Repeat Colonoscopy in 3-4 years due to FH and personal hx of polyps or earlier if clinically indicated Above findings were reviewed with the patient and relevant handouts were provided if indicated.
[2025-08-25 10:20] VITALS: BP 96/52; PULSE 80; RESP 12; TEMP 36.1; O2SAT 97
[2025-08-25 10:35] VITALS: BP 99/61; PULSE 80; RESP 12; TEMP 36.8; O2SAT 98
== END 2025-08-25 10:56 | disposition home or self-care (01) ==
PROVIDERS: PCP Internal Medicine; Visit Provider Internal Medicine Gastroenterology
PROC: 0DJD8ZZ Inspection of Lower Intestinal Tract, Via Natural or Artificial Opening Endoscopic (ICD-10-PCS; CPT 45378; principal; 2025-08-25 10:50)
DX: Z12.11 Encounter for screening for malignant neoplasm of colon (principal); Z86.0101 Personal history of adenomatous and serrated colon polyps; Z80.0 Family history of malignant neoplasm of digestive organs; D12.4 Benign neoplasm of descending colon; K64.0 First degree hemorrhoids; K21.9 Gastro-esophageal reflux disease without esophagitis; K29.70 Gastritis, unspecified, without bleeding; R07.9 Chest pain, unspecified; Z88.5 Allergy status to narcotic agent; Z98.52 Vasectomy status; Z98.890 Other specified postprocedural states
CPT/HCPCS: 45385; 88305; J2003; J2704

== ENCOUNTER → 2025-08-25 08:25 | Outpatient (BNV) | payer OTHER, SELFPAY | PROVIDERS: PCP Internal Medicine; Visit Provider Internal Medicine Gastroenterology | DX: Z12.11 Encounter for screening for malignant neoplasm of colon (principal); Z80.0 Family history of malignant neoplasm of digestive organs; D12.4 Benign neoplasm of descending colon; K64.0 First degree hemorrhoids | CPT/HCPCS: 45385 ==

== ENCOUNTER 2025-09-23 13:49 | Outpatient (REF) | payer OTHER, SELFPAY ==
--- NOTE | ~2025-09-23 | XR_ITS ---
EXAMINATION: XR KNEE, LEFT CLINICAL INFORMATION: M25.569 - Pain in unspecified knee COMPARISON: None available. TECHNIQUE: AP standing bilateral, sunrise, and lateral views of the left knee. FINDINGS: There is mild medial joint space narrowing, bilaterally. Intercondylar tubercles are also minimally peaked. There is small enthesophyte involving superior pole patella quadriceps tendon. Small volume of joint fluid is present. XR/XR knee LT 3V IMPRESSION: Mild medial compartment joint space narrowing. Borderline joint effusion. Electronically signed by: Gentry Stanley MD 09/23/2025 03:08 PM SHELLY
== END 2025-09-23 13:50 | disposition home or self-care (01) ==
LOC: HO.HOSX 13:49
PROVIDERS: PCP Internal Medicine; Visit Provider Physician Assistant
DX: M22.42 Chondromalacia patellae, left knee (principal)
CPT/HCPCS: 73562

== ENCOUNTER 2025-09-23 13:49 | Outpatient (AMB) | payer OTHER, SELFPAY ==
--- NOTE | 2025-09-23 14:20 | MHC.OFFVIS ---
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 Patient states that his pain started on 08/27/25. He mentions that he was performing front lunges and his knee started to get painful. He states about 2 days later he played soccer and his knee was okay when he was running around but later in the game her had increase of pain. Patient noticed yesterday he went mountain biking and he was fine, however after he felt some tightness/soreness in his knee. Today he is feeling okay but have some pain in the knee when he is going down the stairs. 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 Guerrero is a 45 year old male who presents to the office today for evaluation of left knee pain. Patient reports that the pain began on 08/27/2025 when he was doing front lunges. He felt a sharp pain behind the kneecap. On 08/29/2025 he was playing soccer with his child and was running around. After the game he noticed an increase in pain again. Patient did go mountain biking yesterday and did not feel any pain just some soreness/tightness. He does have a knee brace at home that he has not used yet. [facility] Medical History Atypical chest pain Hx of sinus bradycardia History of esophagitis Surgical History Hx of colonoscopy Hx of vasectomy Hx of tonsillectomy History of lung surgery History of surgery on arm History of esophagogastroduodenoscopy (EGD) Family History Father Colon cancer CAD (coronary artery disease) Maternal Uncle Colon cancer Social History (Updated 09/23/25 @ 14:22 by Helen Sánchez) Household Members: Family Housing: House Alcohol intake: current Alcohol intake frequency: 0-2 drinks per day Alcohol type: beer Patient Tobacco Use Status: Never used Tobacco Substance Use Type: Marijuana Current occupational status: employed 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 No ecchymosis, erythema, or joint effusion. No tenderness to palpation along the medial or lateral joint lines. Full knee extension and flexion. Slight discomfort with patellar grind. Negative Manuel's. Negative anterior drawer. NVI. Psych Appearance: grossly normal Mental Status: mental status grossly normal Attitude: cooperative Assessment & Plan Assessment & Plan (1) Chondromalacia patellae of left knee: Code(s): M22.42 - Chondromalacia patellae, left knee Category: Medical Plan Mr. Guerrero is a 45 year old male who presents to the office today for evaluation of left knee pain. Patient reports that the pain began on 08/27/2025 when he was doing front lunges. He felt a sharp pain behind the kneecap. On 08/29/2025 he was playing soccer with his child and was running around. After the game he noticed an increase in pain again. Patient did go mountain biking yesterday and did not feel any pain just some soreness/tightness. He does have a knee brace at home that he has not used yet. While in the office today, the patient reports that his symptoms are slightly improving. I did prescribe him diclofenac 75 mg to be taken p.o. b.i.d. as needed for inflammation and pain. He will wear his knee brace that he has purchased during activities. We did discuss the role of cortisone injection however at this time the patient is not experiencing extreme pain. Therefore, we will reserve this if he needs us in the future. He will follow up with Orthopedics p.r.n., sooner if needed. X-rays of the left knee which were obtained while in the office today and were reviewed by me, Peyton Best PA-C, revealed no acute fracture or dislocation. Orders: Orders XR knee LT 3V Today M25.569 - Pain in unspecified knee Medications: New diclofenac sodium 75 mg PO BID PRN 60 tabs 0RF pain 30 days Coding Level of Care Code New Pt Level 3 (47987) Diagnoses Chondromalacia patellae of left knee M22.42
--- OUTSIDE RECORDS SUMMARY | 2025-09-23 20:12 | XMS_ITS | Clinical Summary ---
Author Organization [facility] Address [address] [place] [address] Care Team Providers Care Childcare Attendant Name Role Phone Bhavik HAQUE MD, [place] [facility] Provi holden Allergies Active Allergy [...] Multiple nevi 12/29/2015 Overview: She sees a technical services specialist yearly Resolved Problems Problem Noted Date Diagnosed [...] Name Comments Cancer Father age 69 of [place] colon ca Heart disease Father age 69 of [place] Hyperlipidemia Father age 69 of [place] Hypertension Father age 69 of [place] COPD Maternal Uncle Hyperlipidemia Mother Hypertension Mother Cancer Paternal Uncle Learning disabilities Son Relation Name Status Comments Father age 69 of [place] Maternal Uncle Mother Paternal Uncle Son Social [...] age to complete this topic Care Teams Childcare Attendant Relationship Specialty Start Date End Date Chaka Gutierres III, MD PCP - General Internal Medicine 02/09/21
--- OUTSIDE RECORDS SUMMARY | 2025-09-23 20:12 | XMS_ITS | Data Portability ---
Author Organization [place] [facility] [place] Betty Sullivan cticut, [facility] Address [address] [place] [address] Assessment No assessment recorded. Plan of Treatment Reminders Order Date Submit Date Provider Last Modified By Organization Details Last Modified Time Details Appointments Well eduard wahl 2025 10:30A M Chaka Gutierres III, MD Not available Not available Not available Lab HbA1 c (hem oglo bin A1c) , bloo d 2024 025 [email or web address] [facility], [address] [place], [address], 08/17/2025 11:17:08 PSA, seru m or plas ma 2024 025 [email or web address] [facility], [address] [place], [address], 08/17/2025 11:17:08 hepa rhona s C viru s Ab, seru m 2024 025 MAGNO [facility], [address] [place], [address], 08/17/2025 10:54:49 urin malu is, dips tick [address] [facility]*, [address], [address], 08/17/2025 11:17:08 CBC w/ auto diff 2024 025 [email or web address], [address] [place], [address], 08/17/2025 11:17:08 CMP, seru m or plas ma 2024 025 [email or web address], [address] [place] [address], [address], 08/17/2025 11:17:08 TSH, seru m or plas ma 2024 025 [email or web address] [facility], [address] [place] [address], [address], 08/17/2025 11:17:08 lipi d pane l, seru m 2024 025 [facility], [address] [place] [address], [id number], 08/17/2025 11:17:08 PSA, seru m or plas ma 2023 024 [facility], [address] [place] [address], [address], 08/16/2024 10:32:48 lipi d pane l, seru m 2023 024 [facility], [address] [place] [address], [address], 08/16/2024 10:32:48 hepa tic func tion pane l, seru m 2023 024 [facility], [address] [place] [address], [address], 08/16/2024 10:32:48 hepa rhona s C viru s Ab, seru m 2023 024 MAGNO [facility], [address] [place] [address], [address], 08/16/2024 10:37:02 CBC w/ auto diff 2023 024 [facility], [address] [place], [address], 08/16/2024 10:32:48 CMP, seru m or plas ma 2023 024 czariph[employer]ai[facility], [address] [place], [address], 08/16/2024 10:32:48 TSH, seru m or plas ma 2023 024 czariphShopS[employer] [facility], [address] [place] [address], [address], 08/16/2024 10:32:48 HbA1 c (hem oglo bin A1c) , bloo d 2023 024 [facility], [address] [place] [address], [address], 08/16/2024 10:32:48 urin malu is, dips tick 2023 024 czariphShopSquad/Ownzaii [facility]*, [address] [facility], [address], [address], 08/16/2024 10:32:48 Referral None dorian rded . Procedures None dorian rded . Surgeries None dorian rded . Imaging elec troc ardi ogra m, rout ine ECG, 12 lead s min [address]*, 945 [facility], [address], [address], 08/17/2025 13:13:06 elec troc ardi ogra m, rout ine ECG, 12 lead s min [address]23 [address] [facility]*, [address] [place] [address], [place], [address], 08/16/2024 11:18:26 Medication Orders None dorian rded . Patient TargetsNo targets recorded. Patient Instructions Encounter Date Encounter Id Patient Instructions Last Modified By Organization Details Last Modified Time 08/16/2024 [id number] Golfer's elbow, also known as medial epicondylitis, [...] ick Unknown Analyte negati ve Not Available [facility] Office* [address], [address], 08/12/2024 15:13:59 08/16/2008/16/2024 urina lysis , dipst ick Unknown Analyte neg Not Available [facility] [address], [address], 08/12/2024 15:13:59 08/16/2008/16/2024 urina lysis , dipst ick Unknown Analyte neg Not Available [facility]* [address], [address], 08/12/2024 15:13:59 08/16/2008/16/2024 urina lysis , dipst ick Unknown Analyte 1.020 Not Available [facility]* [address], [address], 08/12/2024 15:13:59 08/16/2008/16/2024 urina lysis , dipst ick Unknown Analyte neg Not Available [facility] Office* [address] [place] [address], [place], [address], 08/12/2024 15:13:59 08/16/2008/16/2024 urina lysis , dipst ick Unknown Analyte 6.0 Not Available [facility] Office* [address] [place] [address], [place], [address], 08/12/2024 15:13:59 08/16/2008/16/2024 urina lysis , dipst ick Unknown Analyte neg Not Available [facility]* [address] [place], [address], 08/12/2024 15:13:59 08/16/2008/16/2024 urina lysis , dipst ick Unknown Analyte normal : 0.2-1. 0 Not Available [facility] Office* [address] [place] [address], [place], [address], 08/12/2024 15:13:59 08/16/2008/16/2024 urina lysis , dipst ick Unknown Analyte negati ve Not Available [facility] Office* [address] [place], [address], 08/12/2024 15:13:59 08/16/2008/16/2024 urina lysis , dipst ick Unknown Analyte neg Not Available [facility]* [address] [place], [address], 08/12/2024 15:13:59 08/12/2008/12/2025 LDL, serum LDL 149 Not Available Not Availa ble 08/18/2025 08:38:29 08/12/2008/12/2025 GFR, estim ated (eGFR ), serum GFR >60 Not Available Not Availa ble 08/18/2025 08:37:29 08/17/2008/17/2025 urina lysis , dipst ick Unknown Analyte negati ve Not Available [facility] r[facility] Office* [address] [place] [address], [place], [address], 05/03/2025 12:01:33 08/17/2008/17/2025 urina lysis , dipst ick Unknown Analyte neg Not Available [facility]* [address] [place] [address], [place], [address], 05/03/2025 12:01:33 08/17/2008/17/2025 urina lysis , dipst ick Unknown Analyte neg Not Available [facility]* [address] [place] [address], [place], [address], 05/03/2025 12:01:33 08/17/20 25 08/17/2025 urina lysis , dipst ick Unknown Analyte 1.020 Not Available [facility]* [address] [place], [address], 05/03/2025 12:01:33 08/17/20 25 08/17/2025 urina lysis , dipst ick Unknown Analyte neg Not Available [facility]* [address] [place] [address], [place], [address], 05/03/2025 12:01:33 08/17/20 25 08/17/2025 urina lysis , dipst ick Unknown Analyte 6.0 Not Available [facility] Office* [address], [place], [address], 05/03/2025 12:01:33 08/17/2008/17/2025 urina lysis , dipst ick Unknown Analyte neg Not Available [facility] Office* [address], [place], [address], 05/03/2025 12:01:33 08/17/2008/17/2025 urina lysis , dipst ick Unknown Analyte normal : 0.2-1. 0 Not Available [facility] Office* [address], [place], [address], 05/03/2025 12:01:33 08/17/2008/17/2025 urina lysis , dipst ick Unknown Analyte negati ve Not Available [facility]* [address], [place], [address], 05/03/2025 12:01:33 08/17/2008/17/2025 urina lysis , dipst ick Unknown Analyte neg Not Available [facility] Office* [address] [facility], [place], [address], 05/03/2025 12:01:33 08/12/20 elect rocar diogr am, routi ne ECG, 12 leads min No observ ation record ed. MAGNO [facility]* [address], [place], [address], 08/16/2024 11:15:10 08/16/2008/16/2024 elect rocar diogr am, routi ne ECG, 12 leads min No observ ation record ed. MAGNO [facility]* [address], [place], [address], 08/16/2024 12:07:56 05/03/20 elect rocar diogr am, routi ne ECG, 12 leads min No observ ation record ed. [place] [facility] Office* [address] [facility] [address], [place], [address], 08/17/2025 10:56:15 08/17/20 25 08/17/2025 elect rocar diogr am, routi ne ECG, 12 leads min No observ ation record ed. BARCODE Not Available 2024 14:19:05 Result Notes None recorded. 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 She sees a dermatolo gist yearly Not Available [facility] 4 19:48:44 Dyslipid emia 780058787 Active 2015 Dyslipide marie Not Available [facility] 4 19:48:45 Gastriti s 3359197 Active 2015 Gastritis Not Available [facility] 4 19:48:45 Gastro-e sophagea l reflux disease with esophagi tis 512822537 Active 2015 Gastroeso phageal reflux disease with esophagit is Chaka Gutierres III, MD [address], [address], [place] [facility] 5 10:39:04 Patient encounte r status 147904881 Active 2015 Routine general medical examinati on at a health care facility Not Available [facility] 4 19:48:46 Splenome elissa 06845814 Active 2020 Splenomeg ronn Not Available [facility] 4 19:48:44 Urticari a 576038924 Active 2020 Urticaria Not Available [facility] 4 19:48:45 Furuncle 185290979 Active 2022 Boil Not Available [facility] 4 19:48:44 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 Not Available [facility] 4 19:48:45 Carbuncl e 376070131 Active 2022 Carbuncle Not Available [facility] 4 19:48:46 Cellulit is of left axilla 41439045054 909010 Active 2022 Celluliti s of left axilla Not Available [facility] 4 19:48:45 Lacerati on of esophagu s 461472921 Active 2023 Esophagus tear Not Available [facility] 4 19:48:44 Nodule of lung 755493838 Active 2023 Pulmonary nodule less than 1 cm in diameter with low risk for malignant neoplasm Chaka Gutierres III, MD [address] [place] [address],[address], [address], [place] [facility] 5 10:44:22 Left medial elbow tendinop athy 41640837091 9107 Active 2023 Chaka Gutierres III, MD [address] [place] [address],[address] [place], [address], [place] [facility] 4 10:57:32 Right medial elbow tendinop athy 87863674882 9109 Active 2023 Chaka Gutierres III, MD [address] [place] [address],[address] [place], [address], [place] [facility] 4 11:01:15 Impaired fasting glycemia 990708660 Active 2024 Chaka Gutierres III, MD [address] [place] [address],[address] [place], [address], [place] [facility] 5 18:34:13 Adenomat ous polyp of colon 604879064 Active 2024 Chaka Gutierres III, MD [address], [address], [place] [facility] 5 10:44:22 Problem Notes None recorded. Medical Equipment None Reported. Allergies Allergen ID Allergen Name Allergen Category Reaction Reaction Severity Criticality Documentation Date Start Date Code Code System Note Provider Name and Address Organization Details Recorded Time 464368 hydrocodo ne Not available Not available Not available Not available 01/27/20242020 5489 RxNorm React ion: Hives , sever ity: Unkno wn Not Available [facility] 4 19:06:39 Medications Name Sig Start Date [...] 1 capsule every day by oral route. 08/17 completed Not Available Not Available Not Available amoxicillin 875 mg-potassium clavulanate 125 mg [...] Updated DateTime 4 170.18 cm 28.1 kg/m2 78823.1 3 g 64 /min 98 % 98 % 98.4 [degF] 120/70 mm[Hg] [facility] 4 10:37:18 Date Recorded Body height Body mass index (BMI) Body weight Heart rate Oxygen saturation Oxygen saturation in Arterial blood by Pulse oximetry Body temperature Systolic And Diastolic Provider Name and Address Organization Details Last Updated DateTime 5 170.18 cm 27.5 kg/m2 72793.4 1 g 62 /min 98 % 98 % 98.3 [degF] 126/76 mm[Hg] 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 Yes Information not available 08/14/2025 What Was The Date Of Your Most Recent Tobacco Screening? 08/17/2025 Information n ot available 08/14/2025 How Many Children Do You Have? 2 Information not available 08/16/2024 What Is Your Relationship Status? Information not available 08/16/2024 Do You Use Your Seat Belt Or Car Seat Routinely? Yes Information not available 2024 Has Tobacco Cessation Counseling Been Provided? Yes Information not available 08/16/2024 On What Date Was Tobacco Cessation Counseling Provided? 08/17/2025 Information not available 08/14/2025 Do You Have Difficulty Walking Or Climbing Stairs? No Information not available 2024 How Many Days In The Past Year Have You Consumed 5 Or More Drinks? 0 Information not available 08/16/2024 Sex: Male Functional Status Question Answer Note LastModified by Organization Details LastModified Time How many times per week do you consume alcohol? 5-7 times per week 10 Information not available 08/17/2025 Do you use any illicit or recreational drugs? No OCCASIONAL GUMMIES Information not available 08/17/2025 Do you or have you ever used [...] anxious, or unable to sleep at night)? [id number] Information not available 2024 Do you have [...] Recorded Time Tdap [address] [facility] 02/01/2024 09:51:56 Influenza, split virus, quadrivalent, preservative [address] [facility] 02/01/2024 09:51:56 Influenza, split virus, trivalent, preservative [address] [facility] 02/01/2024 09:51:57 COVID-19, mRNA, LNP-S, PF, 100 mcg/0.5mL dose or 50 mcg/0.25mL dose [address] [facility] 02/01/2024 09:51:58 COVID-19, mRNA, LNP-S, PF, 100 mcg/0.5mL dose or 50 mcg/0.25mL dose [address] [facility] 02/01/2024 09:51:58 MMR [address] [facility] 02/01/2024 09:51:58 MMR [address] [facility] 02/01/2024 09:51:59 Influenza, split virus, quadrivalent, preservative [address] [facility] 02/01/2024 09:52:00 COVID-19, mRNA, LNP-S, PF, 100 mcg/0.5mL dose or 50 mcg/0.25mL dose [address] [facility] 02/01/2024 09:52:00 Past Encounters Encounter ID Performer Location Encounter Start Date Encounter Closed Date Diagnosis/Indication Diagnosis SNOMED-CT Code Diagnosis ICD10 Code Diagnosis IMO Codes Diagnosis Note [id number] Evan Gutierres III, MD [facility]* [address] [address] 08/16/2024 10:16:55 08/16/2024 11:18:26 Dyslipidemia 092341538 E78.5 diet Gastro-eso phageal reflux disease with esophagitis 755235449 K21.00 ppi/ had endoscopy Screening for malignant neoplasm of prostate 848079877 Z12.5 Adult heal th examination 764413376 Z00.00 Hepatitis C screening 41 8474643 Z11.59 Right medi al elbow tendinopathy 8965194916 65746 M77.01 info given [id number] Evan Gutierres III, MD [facility]* 945 [facility] [address] [place] [address] 08/17/2025 10:17:05 08/17/2025 13:13:06 Physical examination 7438248 Z00.00 [id number] Screening for malignant neoplasm of prostate 766504788 Z12.5 7711600 Impaired f asting glycemia 895619606 R73.01 860586 Nodule of lung 456142147 R91.1 BIOPSY NEGATIVE Gastro-eso phageal reflux disease with esophagitis 510693350 K21.00 HAD Endoscopy Adenomatou s polyp of colon 724202500 D12.6 [id number] COLONOSCOP Y 08/25/25 Viral scre ening status 098941234 Z11.59 [id number] Health Concerns Section Related Observation LastModified by Organization Detai ls LastModified Time None Recorded Concern Status LastModified by Organization Details LastModified Time None Recorded Advance Directives Directive None Recorded Payers Insurance Date Sequence Insurance Name Policy Number Policy Clarke Covered Member ID Clarke Member ID Guarantor Name 08/23/2025 1 [place] [id number] Eugene Guerrero [id number] Guerrero
--- OUTSIDE RECORDS SUMMARY | 2025-09-23 20:12 | XMS_ITS | Clinical Summary ---
Author Organization [facility] Address [address] [place] [address] Care Team Providers Care Pin Pusher Name Role Phone Bhavik HAQUE MD, [facility] Care [facility] holden Surgical History Surgery Date Site/Laterality Comments [...] nevi 12/29/2015 DX:Multiple nevi ;COMMENT:She sees a x ray tech yearly Internal hemorrhoids DX:Internal hemorrhoids Fracture of humerus, distal, left, closed DX:Fracture of humerus, dist al, left, closed Nail fungus DX:Nail fungus Family History Medical History Relation Name Comments Cancer Father age 69 [place] colon ca Heart disease Father age 69 of [place] Hyperlipidemia Father age 69 [place] Hypertension Father age 69 of [place] Cancer Father's Brother Hyperlipidemia Mother Hypertension Mother COPD Mother's Brother Learning disabilities Son Relation Name Status Comments Father age 69 of [place] Father's Brother Mother Mother's Brother Son Social [...] age to complete this topic Care Teams Pin Pusher Relationship Specialty Start Date End Date Chaka Gutierres III, MD PCP - General Internal Medicine 02/09/21
--- OUTSIDE RECORDS SUMMARY | 2025-09-23 20:12 | XMS_ITS | Continuity of Care Document ---
Author Organization [place] - [place] Betty Sullivan ca[place]ut, [place]_[facility]_[place] Office* Address [address] [place] [id number] Assessment No assessment recorded. Plan of Treatment Reminders Order Date Submit Date Provider Last Modified By Organization Details Last Modified Time Details Appointments Well eduard [place] t 2025 10:30A M Chaka Gutierres III, MD Not available Not available Not available Lab HbA1 c (hem oglo bin A1c) , bloo d 2024 025 [email or web address] [facility], [address] [place], [address], 08/17/2025 11:17:08 PSA, seru m or plas ma 2024 025 [email or web address] [facility], [address] [place], [address], 08/17/2025 11:17:08 hepa rhona s C viru s Ab, seru m 2024 025 MAGNO [facility], [address] [place], [address], 08/17/2025 10:54:49 urin malu is, dips tick 2024 025 [email or web address] [facility] [address], [address], 08/17/2025 11:17:08 CBC w/ auto diff 2024 025 [email or web address] [facility], [address] [place], [address], 08/17/2025 11:17:08 CMP, seru m or plas ma 2024 025 [email or web address] [facility], [address] [place], [address], 08/17/2025 11:17:08 TSH, seru m or plas ma 2024 025 [email or web address] [facility], [address] [place], [address], 08/17/2025 11:17:08 lipi d pane l, seru m 2024 025 [email or web address] [facility], [address] [place], [address], 08/17/2025 11:17:08 Referral None dorian rded . Procedures None dorian rded . Surgeries None dorian rded . Imaging elec troc tayla olmstead ECG, 12 lead s min 2024 025 [facility]*, 945 [facility], [address], [address], 08/17/2025 13:13:06 Medication Orders None dorian rded . Patient TargetsNo targets recorded. Patient InstructionsNo instructions recorded. Reason for Referral None Reported. Results Created Date Observation Date Name Description Value Unit Range Abnormal Flag Note LastModifiedBy Organization Detail LastModifiedTime 08/12/2008/12/2025 LDL, serum LDL 149 Not Available Not Availa ble 08/18/2025 08:38:29 08/12/2008/12/2025 GFR, estim ated (eGFR ), serum GFR >60 Not Available Not Availa ble 08/18/2025 08:37:29 08/17/2008/17/2025 urina lysis , dipst ick Unknown Analyte negati ve Not Available Ct_[facility] Office* [address] [place] [address], [place], [address], 05/03/2025 12:01:33 08/17/2008/17/2025 urina lysis , dipst ick Unknown Analyte neg Not Available [facility] [address] [place] [address], [place], [address], 05/03/2025 12:01:33 08/17/2008/17/2025 urina lysis , dipst ick Unknown Analyte neg Not Available [facility] [address] [place] [address], [place], [address], 05/03/2025 12:01:33 08/17/20 25 08/17/2025 urina lysis , dipst ick Unknown Analyte 1.020 Not Available [facility]* [address] [place], [address], 05/03/2025 12:01:33 08/17/20 25 08/17/2025 urina lysis , dipst ick Unknown Analyte neg Not Available [facility]* [address] [place], [address], 05/03/2025 12:01:33 08/17/20 25 08/17/2025 urina lysis , dipst ick Unknown Analyte 6.0 Not Available [facility]* [address] [place] [address], [place], [address], 05/03/2025 12:01:33 08/17/20 25 08/17/2025 urina lysis , dipst ick Unknown Analyte neg Not Available [facility] Office* [address] [place] [address], [place], [address], 05/03/2025 12:01:33 08/17/2008/17/2025 urina lysis , dipst ick Unknown Analyte normal : 0.2-1. 0 Not [address] [facility] Office* [address] [place] [address], [place], [address], 05/03/2025 12:01:33 08/17/2008/17/2025 urina lysis , dipst ick Unknown Analyte negati ve Not Available [facility] Office* [address] [facility] [address], [place], [address], 05/03/2025 12:01:33 08/17/2008/17/2025 urina lysis , dipst ick Unknown Analyte neg Not Available [facility]* [address] [place] [address], [place], [address], 05/03/2025 12:01:33 08/17/2008/17/2025 alex hanna am, gil ne ECG, 12 leads min No observ ation record ed. BARCODE Not Available 2024 14:19:05 Result Notes None recorded. 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 She sees a dermatolo gist yearly Not Available [facility] 4 19:48:44 Dyslipid emia 416859624 Active 2015 Dyslipide marie Not Available [facility] 4 19:48:45 Gastriti s 8736827 Active 2015 Gastritis Not Available [facility] 4 19:48:45 Gastro-e sophagea l reflux disease with esophagi tis 057902712 Active 2015 Gastroeso phageal reflux disease with esophagit is Chaka Gutierres III, MD [address] [place] [address],[address], [address], [place] [facility] 5 10:39:04 Patient encounte r status 654910235 Active 2015 Routine general medical examinati on at a health care facility Not Available [facility] 4 19:48:46 Splenome elissa 68681229 Active 2020 Splenomeg ronn Not Available [facility] 4 19:48:44 Urticari a 625119675 Active 2020 Urticaria Not Available [facility] 4 19:48:45 Furuncle 727594994 Active 2022 Boil Not Available [facility] 4 19:48:44 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 Not Available [facility] 4 19:48:45 Carbuncl e 854992527 Active 2022 Carbuncle Not Available [facility] 4 19:48:46 Cellulit is of left axilla 76883711340 338664 Active 2022 Celluliti s of left axilla Not Available [facility] 4 19:48:45 Lacerati on of esophagu s 621868067 Active 2023 Esophagus tear Not Available [facility] 4 19:48:44 Nodule of lung 507553424 Active 2023 Pulmonary nodule less than 1 cm in diameter with low risk for malignant neoplasm Chaka Gutierres III, MD [address] [place] [address],[address], [address], [place] [facility] 5 10:44:22 Left medial elbow tendinop athy 71979442002 9107 Active 2023 Chaka Gutierres III, MD [address] [place] [address],[address], [address], [place] [facility] 4 10:57:32 Right medial elbow tendinop athy 17323574843 9109 Active 2023 Chaka Gutierres III, MD [address] [place] [address],[address], [address] [place] [address], [place] [facility] 4 11:01:15 Impaired fasting glycemia 660060674 Active 2024 Chaka Gutierres III, MD [address] [place] [address],[address], [address] [place] [address], [place] [facility] 5 18:34:13 Adenomat ous polyp of colon 764716923 Active 2024 Chaka Gutierres III, MD [address] [place] [address],[address], [address] [place] [address], [facility] [place] [facility] 5 10:44:22 Problem Notes None recorded. Medical Equipment None Reported. Allergies Allergen ID Allergen Name Allergen Category Reaction Reaction Severity Criticality Documentation Date Start Date Code Code System Note Provider Name and Address Organization Details Recorded Time 425858 hydrocodo ne Not available Not available Not available Not available 01/27/20242020 5489 RxNorm React ion: Hives , sever ity: Unkno wn Not Available [facility] 4 19:06:39 Medications Name Sig Start Date [...] Updated DateTime 5 170.18 cm 27.5 kg/m2 22381.4 1 g 62 /min 98 % 98 % 98.3 [degF] 126/76 mm[Hg] Katrina Flanagan [place] [facility] [place] [facility] 10:32:15 Social History Question Answer Notes LastModified by Organizat ion Details LastModified Time Tobacco Smoking Status Never Smoker Not Available 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 [id number] Information not available 2024 Do you have [...] Recorded Time Tdap 6 completed Not Available On license of [facility] 02/01/2024 09:51:56 Influenza, split virus, quadrivalent, preservative 6 completed Not Available [facility] 02/01/2024 09:51:56 Influenza, split virus, trivalent, preservative 7 completed Not Available On license of [facility] 02/01/2024 09:51:57 COVID-19, mRNA, LNP-S, PF, 100 mcg/0.5mL dose or 50 mcg/0.25mL dose 1 completed Not Available On license of [facility] 02/01/2024 09:51:58 COVID-19, mRNA, LNP-S, PF, 100 mcg/0.5mL dose or 50 mcg/0.25mL dose 1 completed Not Available On license of [facility] 02/01/2024 09:51:58 MMR 1 completed Not Available On license of [facility] 02/01/2024 09:51:58 MMR 1 completed Not Available On license of [facility] 02/01/2024 09:51:59 Influenza, split virus, quadrivalent, preservative 1 completed Not Available On license of [facility] 02/01/2024 09:52:00 COVID-19, mRNA, LNP-S, PF, 100 mcg/0.5mL dose or 50 mcg/0.25mL dose 1 completed Not Available On license of [facility] 02/01/2024 09:52:00 Past Encounters Encounter ID Performer Location Encounter Start Date Encounter Closed Date Diagnosis/Indication Diagnosis SNOMED-CT Code Diagnosis ICD10 Code Diagnosis IMO Codes Diagnosis Note [id number] Evan Gutierres III, MD [facility]* [address] ,[facility] [address] [facility] [address] 08/17/2025 10:17:05 08/17/2025 13:13:06 Physical examination 1912048 Z00.00 823323 Screening for malignant neoplasm of prostate 544980840 Z12.5 3896567 Impaired f asting glycemia 540848065 R73.01 573899 Nodule of lung 034825107 R91.1 BIOPSY NEGATIVE Gastro-eso phageal reflux disease with esophagitis 063835023 K21.00 HAD Endoscopy Adenomatou s polyp of colon 820106107 D12.6 10455806 COLONOSCOP Y 08/25/25 Viral scre ening status 816830546 Z11.59 675454 Health Concerns Section Related Observation LastModified by Organization Detai ls LastModified Time None Recorded Concern Status LastModified by Organization Details LastModified Time None Recorded Payers Encounter Date Sequence Insurance Name Policy Number Policy Clarke Covered Member ID Clarke Member ID Guarantor Name 08/17/2025 1 [facility]: [place] [facility] [id number] Eugene Guerrero [id number] Eugene Guerrero
--- OUTSIDE RECORDS SUMMARY | 2025-09-23 20:12 | XMS_ITS | Clinical Summary ---
Author Organization [facility] Address [address] [place] [address] Care Team Providers Care Traffic Routing Engineer Name Role Phone Bhavik HAQUE MD, [facility] holden Allergies Active Allergy [...] Influenza Vaccine 06/10/2025 09/10/2017 COVID-19 Vaccine (3 2024-2 6 season) 2025 01/01/2021, 12/04/2020 HIV Screening Completed 08/17/2021 Pneumococcal Vaccine: Pediatric (0-5 Years) and At-Risk [...] CMIA Nonreactive Nonreactive 08/20/2021 12:33 PM EDT [facility] Comment:Results show no evid ence of infection by HIV 1/2. If clinically indicated, repeat CMIA or test by nucleic acid amplification. Blood specimen (specimen) Serum specimen / Unknown 08/17/2021 1:10 PM EDT 08/17/2021 1:34 PM EDT us Otoniel U Luc[facility] BLOOD ORDERABLES Final Resul t [facility]OS[facility] [address]) [place] [address] from Last 3 Months or Most Recently Relevant to Health Maintenance Insurance [facility] PPO BLUE CROSS COMPREHENSIVE Advance Directives * Full Code (Latest Code Status on File) Date Activated Date Inactivated Comments 08/16/2021 6:57 PM Question Answer Comments Decision Thoroughly Discussed with: Patient Care Teams Traffic Routing Engineer Relationship Specialty Start Date End Date Chaka Gutierres III, MD PCP - General Internal Medicine 08/13/21
== END 2025-09-23 14:59 | disposition home or self-care (01) ==
LOC: HO.HOS 13:50
PROVIDERS: PCP Internal Medicine; Visit Provider Physician Assistant
DX: M22.42 Chondromalacia patellae, left knee (principal)
CPT/HCPCS: 99203

== ENCOUNTER → 2025-09-23 14:05 | Outpatient (BNV) | payer OTHER, SELFPAY | PROVIDERS: PCP Internal Medicine; Visit Provider Radiology Diagnostic Radiology | DX: M17.12 Unilateral primary osteoarthritis, left knee (principal) | CPT/HCPCS: 73562 ==

== ENCOUNTER 2025-10-10 09:53 | Outpatient (AMB) | payer OTHER, SELFPAY ==
--- NOTE | 2025-10-10 09:55 | MHC.OFFVIS ---
Vital Signs 10/10/25 09:57 Height 5 ft 6.5 in Weight 180 lb 12.465 oz BMI 28.7 BP 130/75 Blood Pressure Location Lt brachial Position Sitting Pulse 61 Intake Visit Reasons: 8 mo Intake Note: Eugene presents in the office as a 8 month follow up. CC: stopped nexium and states that he is feeling fine - he states that it took 3 weeks to go back to normal. Speech Communication Instructor Required: No Allergies hydrocodone Allergy (Verified 10/10/25 09:57) Hives HPI HPI 8 mo: Details: 45 yr old m here for f/u He had issues with GERD and had EGD as below, also colonoscopy with TA removed EGD: 12/04/23 esophagitis-resolving gastritis PLAN: await bx check nsaid hx if h pylori pos then treat bx: mild chronic inflammation GEJ and stomach with inactive inflammation CTA: 11/2024-- nodule in lung, no coronary calcifications, following pulm He was referred to cards due to atypical chest pain, neg stress test COLO: 09/03: sessile polyp removed INTERIM: he passed his cardiac testing he stopped PPI, doing well, no major reflux sx no major issues no abdominal pain no n/v EXAM: GENERAL: The patient is well developed and nontoxic. VITAL SIGNS:see workflow HEENT: Nonicteric sclerae, PERRLA, EOMI. Oropharynx clear. Moist mucous membranes. Conjunctivae appear well perfused. No thyroid mass. CHEST: Chest wall is nontender. HEART: Regular rate and rhythm without murmurs. LUNGS: Clear to auscultation bilaterally. ABDOMEN: Soft, positive bowel sounds, nontender, no organomegaly.no flank tenderness SKIN: No rash, no excessive bruising, petechiae, or purpura. NEUROLOGIC: Cranial nerves II-XII intact without motor/sensory deficit. Psych: normal affect A/P: 1/ Tubular adenomas--FH of CRC father 2/ GERD- controlled PLAN: 1/ repeat colo in 2-3 yrs due to FH of CRC or earlier if needed 2/ if GERD returns can go back on ppi PFSH Medical History Atypical chest pain Hx of sinus bradycardia History of esophagitis Surgical History Hx of colonoscopy Hx of vasectomy Hx of tonsillectomy History of lung surgery History of surgery on arm History of esophagogastroduodenoscopy (EGD) Family History Father Colon cancer CAD (coronary artery disease) Maternal Uncle Colon cancer Social History Household Members: Family Housing: House Alcohol intake: current Alcohol intake frequency: 0-2 drinks per day Alcohol type: beer Patient Tobacco Use Status: Never used Tobacco Substance Use Type: Marijuana Current occupational status: employed 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
[2025-10-10 09:57] VITALS: BP 130/75; PULSE 61; BMI 28.7
--- OUTSIDE RECORDS SUMMARY | 2025-10-10 11:55 | XMS_ITS | Clinical Summary ---
Author Organization [facility] Address [address] [place] [address] Care Team Providers Care Gunite Mixer Name Role Phone Bhavik HAQUE MD, [facility] Surgical History Surgery Date Site/Laterality Comments [...] nevi 12/29/2015 DX:Multiple nevi ;COMMENT:She sees a international broadcast music librarian yearly Internal hemorrhoids DX:Internal hemorrhoids Fracture of humerus, distal, left, closed DX:Fracture of humerus, dist al, left, closed Nail fungus DX:Nail fungus Family History Medical History Relation Name Comments Cancer Father age 69 of [place] colon ca Heart disease Father age 69 of [place] Hyperlipidemia Father age 69 [place] Hypertension Father age 69 [place] Cancer Father's Brother Hyperlipidemia Mother Hypertension Mother COPD Mother's Brother Learning disabilities Son Relation Name Status Comments Father age 69 of [place] Father's Brother Mother Mother's Brother Son Social [...] age to complete this topic Care Teams Gunite Mixer Relationship Specialty Start Date End Date Chaka Gutierres III, MD PCP - General Internal Medicine 02/09/21
--- OUTSIDE RECORDS SUMMARY | 2025-10-10 11:55 | XMS_ITS | Data Portability ---
Author Organization [place] - [place], [facility]_CT[facility] Address [address] [place] [address] Assessment No assessment recorded. Plan of Treatment Reminders Order Date Submit Date Provider Last Modified By Organization Details Last Modified Time Details Appointments Well eduard wahl 2025 10:30A M Chaka Gutierres III, MD Not available Not available Not available Lab HbA1 c (hem oglo bin A1c) , bloo d 2024 025 [facility], [address] [place], [address], 08/17/2025 11:17:08 PSA, seru m or plas ma 2024 025 czarip[facility]iii [facility], [address] [place], [address], 08/17/2025 11:17:08 hepa rhona s C viru s Ab, seru m 2024 025 MAGNO [facility], [address] [place], [address], 08/17/2025 10:54:49 urin malu is, dips tick 2024 [address]*, [address], [address], 08/17/2025 11:17:08 CBC w/ auto diff 2024 025 [facility], [address] [place], [address], 08/17/2025 11:17:08 CMP, seru m or plas ma 2024 025 [facility], [address] [place] [address], [id number], 08/17/2025 11:17:08 TSH, seru m or plas ma 2024 025 [facility], [address] [place] [address], [address], 08/17/2025 11:17:08 lipi d pane l, seru m 2024 025 [facility], [address] [place] [address], [address], 08/17/2025 11:17:08 PSA, seru m or plas ma 2023 024 [facility], [address] [place] [address], [address], 08/16/2024 10:32:48 lipi d pane l, seru m 2023 024 [facility], [address] [place] [address], [address], 08/16/2024 10:32:48 hepa tic func tion pane l, seru m 2023 024 [facility], [address] [place] [address], [id number], 08/16/2024 10:32:48 hepa rhona s C viru s Ab, seru m 2023 024 MAGNO [facility], [address] [place] [address], [address], 08/16/2024 10:37:02 CBC w/ auto diff 2023 024 [facility], [address] [place], [address], 08/16/2024 10:32:48 CMP, seru m or plas ma 2023 024 [employer] [facility], [address] [place], [address], 08/16/2024 10:32:48 TSH, seru m or plas ma 2023 024 [employer] [facility], [address] [place] [address], [id number], 08/16/2024 10:32:48 HbA1 c (hem oglo bin A1c) , bloo d 2023 024 [facility], [address] [place] [address], [id number], 08/16/2024 10:32:48 urin malu is, dips tick 2023 024 [employer] [facility]*, [address] [facility], [address], [address], 08/16/2024 10:32:48 Referral None dorian rded . Procedures None dorian rded . Surgeries None dorian rded . Imaging elec troc ardi ogra m, rout ine ECG, 12 lead s min [address]*, [address] [facility], [address], [address], 08/17/2025 13:13:06 elec troc ardi ogra m, rout ine ECG, 12 lead s min 2023 [address]*, [address] [place] [address], [place], [address], 08/16/2024 11:18:26 Medication Orders None dorian rded . Patient TargetsNo targets recorded. Patient Instructions Encounter Date Encounter Id Patient Instructions Last Modified By Organization Details Last Modified Time 08/16/2024 [id number] Golfer's elbow, also known as medial epicondylitis, [...] ick Unknown Analyte negati ve Not Available Ct[facility] Office* [address], [address], 08/12/2024 15:13:59 08/16/2008/16/2024 urina lysis , dipst ick Unknown Analyte neg Not Available [facility] [address], [address], 08/12/2024 15:13:59 08/16/2008/16/2024 urina lysis , dipst ick Unknown Analyte neg Not Available [facility]* [address], [address], 08/12/2024 15:13:59 08/16/2008/16/2024 urina lysis , dipst ick Unknown Analyte 1.020 Not Available [facility]* [address], [address], 08/12/2024 15:13:59 08/16/2008/16/2024 urina lysis , dipst ick Unknown Analyte neg Not Available [facility]* [address] [place] [address], [place], [address], 08/12/2024 15:13:59 08/16/2008/16/2024 urina lysis , dipst ick Unknown Analyte 6.0 Not Available [facility]* [address] [place] [address], [place], [address], 08/12/2024 15:13:59 08/16/2008/16/2024 urina lysis , dipst ick Unknown Analyte neg Not Available [facility]* [address] [place], [address], 08/12/2024 15:13:59 08/16/2008/16/2024 urina lysis , dipst ick Unknown Analyte normal : 0.2-1. 0 Not Available [facility] Office* [address] [address], [place], [address], 08/12/2024 15:13:59 08/16/2008/16/2024 urina lysis , dipst ick Unknown Analyte negati ve Not Available [facility]* [address] [place], [address], 08/12/2024 15:13:59 08/16/2008/16/2024 urina lysis , dipst ick Unknown Analyte neg Not Available [facility]* [address] [place], [address], 08/12/2024 15:13:59 08/12/2008/12/2025 LDL, serum LDL 149 Not Available Not Availa ble 08/18/2025 08:38:29 08/12/2008/12/2025 GFR, estim ated (eGFR ), serum GFR >60 Not Available Not Availa ble 08/18/2025 08:37:29 08/17/2008/17/2025 urina lysis , dipst ick Unknown Analyte negati ve Not Available [facility] Office* [address] [place] [address], [place], [address], 05/03/2025 12:01:33 08/17/2008/17/2025 urina lysis , dipst ick Unknown Analyte neg Not Available [facility]* [address] [place] [address], [place], [address], 05/03/2025 12:01:33 08/17/2008/17/2025 urina lysis , dipst ick Unknown Analyte neg Not Available [facility]* [address] [address], [place], [address], 05/03/2025 12:01:33 08/17/20 25 08/17/2025 urina lysis , dipst ick Unknown Analyte 1.020 Not Available [facility]* [address] [place], [address], 05/03/2025 12:01:33 08/17/20 25 08/17/2025 urina lysis , dipst ick Unknown Analyte neg Not Available [facility]* [address] [place] [address], [place], [address], 05/03/2025 12:01:33 08/17/20 25 08/17/2025 urina lysis , dipst ick Unknown Analyte 6.0 Not Available [facility]* [address], [place], [address], 05/03/2025 12:01:33 08/17/2008/17/2025 urina lysis , dipst ick Unknown Analyte neg Not Available [facility]* [address], [place], [address], 05/03/2025 12:01:33 08/17/2008/17/2025 urina lysis , dipst ick Unknown Analyte normal : 0.2-1. 0 Not Available [facility]* [address], [place], [address], 05/03/2025 12:01:33 08/17/2008/17/2025 urina lysis , dipst ick Unknown Analyte negati ve Not Available [facility]* [address], [place], [address], 05/03/2025 12:01:33 08/17/2008/17/2025 urina lysis , dipst ick Unknown Analyte neg Not Available [facility]* [address] [facility], [place], [address], 05/03/2025 12:01:33 08/12/20 elect rocar diogr am, routi ne ECG, 12 leads min No observ ation record ed. MAGNO [facility]* [address], [place], [address], 08/16/2024 11:15:10 08/16/2008/16/2024 elect rocar diogr am, routi ne ECG, 12 leads min No observ ation record ed. MAGNO [facility]* [address], [place], [address], 08/16/2024 12:07:56 05/03/20 elect rocar diogr am, routi ne ECG, 12 leads min No observ ation record ed. [facility]* [address] [facility] [address], [place], [address], 08/17/2025 10:56:15 08/17/20 25 08/17/2025 elect rocar diogr am, routi ne ECG, 12 leads min No observ ation record ed. BARCODE Not Available 2024 14:19:05 Result Notes None recorded. 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 She sees a dermatolo gist yearly Not Available [facility] 4 19:48:44 Dyslipid emia 119899869 Active 2015 Dyslipide marie Not Available [facility] 4 19:48:45 Gastriti s 1613539 Active 2015 Gastritis Not Available [facility] 4 19:48:45 Gastro-e sophagea l reflux disease with esophagi tis 563763978 Active 2015 Gastroeso phageal reflux disease with esophagit is Chaka Gutierres III, MD [address], [address], [place] [facility] 5 10:39:04 Patient encounte r status 663785203 Active 2015 Routine general medical examinati on at a health care facility Not Available [facility] 4 19:48:46 Splenome elissa 79259593 Active 2020 Splenomeg ronn Not Available [facility] 4 19:48:44 Urticari a 191278061 Active 2020 Urticaria Not Available [facility] 4 19:48:45 Furuncle 995827124 Active 2022 Boil Not Available [facility] 4 19:48:44 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 Not Available [facility] 4 19:48:45 Carbuncl e 525326253 Active 2022 Carbuncle Not Available [facility] 4 19:48:46 Cellulit is of left axilla 22727825952 903936 Active 2022 Celluliti s of left axilla Not Available [facility] 4 19:48:45 Lacerati on of esophagu s 521283922 Active 2023 Esophagus tear Not Available [facility] 4 19:48:44 Nodule of lung 868639763 Active 2023 Pulmonary nodule less than 1 cm in diameter with low risk for malignant neoplasm Chaka Gutierres III, MD [address] [place] [address],[address], [address], [place] [facility] 5 10:44:22 Left medial elbow tendinop athy 79504425331 9107 Active 2023 Chaak Gutierres III, MD [address] [place] [address],[address] [place], [address], [place] [facility] 4 10:57:32 Right medial elbow tendinop athy 70771474302 9109 Active 2023 Chaka Gutierres III, MD [address] [place] [address],[address] [place], [address], [place] [facility] 4 11:01:15 Impaired fasting glycemia 948478121 Active 2024 Chaka Gutierres III, MD [address] [place] [address],[address] [place], [address], [place] [facility] 5 18:34:13 Adenomat ous polyp of colon 780161488 Active 2024 Chaka Gutierres III, MD [address], [address], [place] [facility] 5 10:44:22 Problem Notes None recorded. Medical Equipment None Reported. Allergies Allergen ID Allergen Name Allergen Category Reaction Reaction Severity Criticality Documentation Date Start Date Code Code System Note Provider Name and Address Organization Details Recorded Time 184723 hydrocodo ne Not available Not available Not [...] (BMI) Body weight Heart rate Oxygen saturation Body temperature Systolic And Diastolic Provider Name and Address Organization Details Last Updated DateTime 4 170.18 cm 28.1 kg/m2 82193.1 3 g 64 /min 98 % 98.4 [degF] 120/70 mm[Hg] Katrinastormy Flanagan [facility] 4 10:37:18 Date Recorded Body height Body mass index (BMI) Body weight Heart rate Oxygen saturation Body temperature Systolic And Diastolic Provider Name and Address Organization Details Last Updated DateTime 5 170.18 cm 27.5 kg/m2 24522.4 1 g 62 /min 98 % 98.3 [degF] 126/76 mm[Hg] Katrina [facility] 5 10:32:15 Social History Question Answer Notes LastModified by [employer] ion Details LastModified Time Tobacco Smoking Status [...] Visited Or Received Treatment In A Hospital, Half-Way, Long-term Care, Or Other Health Care Facility [...] 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 [id number] Information not available 2024 Do you have [...] Recorded Time Tdap 6 completed Not Available [facility] 02/01/2024 09:51:56 Influenza, split virus, quadrivalent, preservative 6 completed Not Available [facility] 02/01/2024 09:51:56 Influenza, split virus, trivalent, preservative 7 completed Not Available [facility] 02/01/2024 09:51:57 COVID-19, mRNA, LNP-S, PF, 100 mcg/0.5mL dose or 50 mcg/0.25mL dose 1 completed Not Available [facility] 02/01/2024 09:51:58 COVID-19, mRNA, LNP-S, PF, 100 mcg/0.5mL dose or 50 mcg/0.25mL dose 1 completed Not Available [facility] 02/01/2024 09:51:58 MMR 1 completed Not Available [facility] 02/01/2024 09:51:58 MMR 1 completed Not Available [facility] 02/01/2024 09:51:59 Influenza, split virus, quadrivalent, preservative 1 completed Not Available [facility] 02/01/2024 09:52:00 COVID-19, mRNA, LNP-S, PF, 100 mcg/0.5mL dose or 50 mcg/0.25mL dose 1 completed Not Available [facility] 02/01/2024 09:52:00 Past Encounters Encounter ID Performer Location Encounter Start Date Encounter Closed Date Diagnosis/Indication Diagnosis SNOMED-CT Code Diagnosis ICD10 Code Diagnosis IMO Codes Diagnosis Note [id number] MD ABBE Grimes III[facility]* [address] [facility],[address] [address] 08/16/2024 10:16:55 08/16/2024 11:18:26 Dyslipidemia 539860930 E78.5 diet Gastro-eso phageal reflux disease with esophagitis 151307107 K21.00 ppi/ had endoscopy Screening for malignant neoplasm of prostate 464416542 Z12.5 Adult heal th examination 299171417 Z00.00 Hepatitis C screening 41 5685158 Z11.59 Right medi al elbow tendinopathy 6637582346 02686 M77.01 info given [id number] Evan Gutierres III, MD [facility]* [address] [place] [address] 08/17/2025 10:17:05 08/17/2025 13:13:06 Physical examination 0043073 Z00.00 686511 Screening for malignant neoplasm of prostate 262910844 Z12.5 7886647 Impaired f asting glycemia 314460657 R73.01 353681 Nodule of lung 671403423 R91.1 BIOPSY NEGATIVE Gastro-eso phageal reflux disease with esophagitis 695024097 K21.00 HAD Endoscopy Adenomatou s polyp of colon 612523272 D12.6 [id number] COLONOSCOP Y 08/25/25 Viral scre ening status 419491614 Z11.59 [id number] Health Concerns Section Related Observation LastModified by Organization Detai ls LastModified Time None Recorded Concern Status LastModified by Organization Details LastModified Time None Recorded Advance Directives Directive None Recorded Payers Insurance Date Sequence Insurance Name Policy Number Policy Clarke Covered Member ID Clarke Member ID Guarantor Name 08/23/2025 1 [place]: ELVIN ONTIVEROS [id number] Eugene Guerrero [id number] Eugene Guerrero
--- OUTSIDE RECORDS SUMMARY | 2025-10-10 11:55 | XMS_ITS | Continuity of Care Document ---
Author Organization [place] - [place] Betty Sullivan [place], [place]_[facility]_[place] Office* Address [address] [place] [id number] Assessment No assessment recorded. Plan of Treatment Reminders Order Date Submit Date Provider Last Modified By Organization Details Last Modified Time Details Appointments Well eduard [place] t 2025 10:30A M Chaka Gutierres III, MD Not available Not available Not available Lab HbA1 c (hem oglo bin A1c) , bloo d 2024 025 [email or web address] [facility], [address] [place], [address], 08/17/2025 11:17:08 PSA, seru m or plas ma 2024 025 [email or web address] [facility], [address] [place], [address], 08/17/2025 11:17:08 hepa rhona s C viru s Ab, seru m 2024 025 MAGNO [facility], [address] [place], [address], 08/17/2025 10:54:49 urin malu is, dips tick 2024 025 [email or web address] [facility] [address], [address], 08/17/2025 11:17:08 CBC w/ auto diff 2024 025 [email or web address] [facility], [address] [place], [address], 08/17/2025 11:17:08 CMP, seru m or plas ma 2024 025 [email or web address] [facility], [address] [place], [address], 08/17/2025 11:17:08 TSH, seru m or plas ma 2024 025 [email or web address] [facility], [address] [place], [address], 08/17/2025 11:17:08 lipi d pane l, seru m 2024 025 [email or web address] [facility], [address] [place], [address], 08/17/2025 11:17:08 Referral None dorian rded . Procedures None dorian rded . Surgeries None dorian rded . Imaging elec troc tayla olmstead ECG, 12 lead s min 2024 025 [facility] Office*, 945 [facility], [address], [address], 08/17/2025 13:13:06 Medication Orders None dorian rded [...] Available Ct_cthima_m russ Office* [address] [place] [address], [place], [address], 05/03/2025 12:01:33 08/17/2008/17/2025 urina lysis , dipst ick Unknown Analyte neg Not Available [facility]* [address] [address], [place], [address], 05/03/2025 12:01:33 08/17/2008/17/2025 urina lysis , dipst ick Unknown Analyte neg Not Available [facility]* [address] [address], [place], [address], 05/03/2025 12:01:33 08/17/20 25 08/17/2025 urina lysis , dipst ick Unknown Analyte 1.020 Not Available [facility] [address] [place], [address], 05/03/2025 12:01:33 08/17/20 25 08/17/2025 urina lysis , dipst ick Unknown Analyte neg Not Available [facility] [address] [place], [address], 05/03/2025 12:01:33 08/17/20 25 08/17/2025 urina lysis , dipst ick Unknown Analyte 6.0 Not Available [facility] [address] [address], [place], [address], 05/03/2025 12:01:33 08/17/20 25 08/17/2025 urina lysis , dipst ick Unknown Analyte neg Not Available [facility] Office* [address] [address], [place], [address], 05/03/2025 12:01:33 08/17/2008/17/2025 urina lysis , dipst ick Unknown Analyte normal : 0.2-1. 0 [address] [facility] Office* [address] [address], [place], [address], 05/03/2025 12:01:33 08/17/2008/17/2025 urina lysis , dipst ick Unknown Analyte negati ve Not Available Ct[facility] Office* [address] [facility] [address], [place], [address], 05/03/2025 12:01:33 08/17/2008/17/2025 urina lysis , dipst ick Unknown Analyte neg Not Available [facility] Office* [address] [address], [place], [address], 05/03/2025 12:01:33 08/17/2008/17/2025 alex hanna am, gil ne ECG, 12 leads min No observ ation record ed. BARCODE Not Available 2024 14:19:05 Result Notes None recorded. Problems Name Problem SNOMED Code Status Onset Date Resolution Date Notes Provider Name and Address Organization Details Recorded Time Benign neoplasm of soft tissue 13414583 Active 2015 Multiple nevi - Overview: Formattin g of this note might be different from the original. She sees a dermatolo gist yearly Not Available [facility] 4 19:48:44 Dyslipid emia 962951822 Active 2015 Dyslipide marie Not Available [facility] 4 19:48:45 Gastriti s 2211917 Active 2015 Gastritis Not Available [facility] 4 19:48:45 Gastro-e sophagea l reflux disease with esophagi tis 992493769 Active 2015 Gastroeso phageal reflux disease with esophagit is Chaka Gutierres III, MD [address] [place] [address],[address], [address], [place] [facility] 5 10:39:04 Patient encounte r status 878530580 Active 2015 Routine general medical examinati on at a health care facility Not Available [facility] 4 19:48:46 Splenome elissa 18450530 Active 2020 Splenomeg ronn Not Available [facility] 4 19:48:44 Urticari a 481612962 Active 2020 Urticaria Not Available [facility] 4 19:48:45 Furuncle 422687357 Active 2022 Boil Not Available [facility] 4 19:48:44 Axillary hidraden itis suppurat phyllis 829748948 Active 2022 Hidradeni tis axillaris Not Available [facility] 4 19:48:45 Carbuncl e 415883651 Active 2022 Carbuncle Not Available [facility] 4 19:48:46 Cellulit is of left axilla 48102693822 647475 Active 2022 Celluliti s of left axilla Not Available [facility] 4 19:48:45 Lacerati on of esophagu s 671521049 Active 2023 Esophagus tear Not Available [facility] 4 19:48:44 Nodule of lung 300035479 Active 2023 Pulmonary nodule less than 1 cm in diameter with low risk for malignant neoplasm Chaka Gutierres III, MD [address] [place] [address],[address], [address], [place] [facility] 5 10:44:22 Left medial elbow tendinop athy 59892605100 9107 Active 2023 Chaka Gutierres III, MD [address] [place] [address],[address], [address], [place] [facility] 4 10:57:32 Right medial elbow tendinop athy 01709365124 9109 Active 2023 Chaka Gutierres III, MD [address] [place] [address],[address], [address] [place] [address], [place] [facility] 4 11:01:15 Impaired fasting glycemia 991386729 Active 2024 Chaka Gutierres III, MD [address] [place] [address],[address], [address] [place] [address], [place] [facility] 5 18:34:13 Adenomat ous polyp of colon 837153823 Active 2024 Chaka Gutierres III, MD [address] [place] [address],[address], [address] [place] [address], [facility] - [place] [facility] 5 10:44:22 Problem Notes None recorded. Medical Equipment None Reported. Allergies Allergen ID Allergen Name Allergen Category Reaction Reaction Severity Criticality Documentation Date Start Date Code Code System Note Provider Name and Address Organization Details Recorded Time 542227 hydrocodo ne Not available Not available Not available Not available 01/27/20242020 5489 RxNorm React ion: Hives , sever ity: Unkno wn Not Available [facility] 4 19:06:39 Medications Name Sig Start [...] and Address Organization Details Last Updated DateTime 170.18 cm 27.5 kg/m2 57480.4 1 g 62 /min 98 % 98.3 [degF] 126/76 mm[Hg] Katrina Flanagan [place] [facility] 10:32:15 Social History Question Answer Notes LastModified by Organizat ion Details LastModified Time Tobacco Smoking Status Never Smoker Not Available [facility] 02/01/2024 04:20:43 Are You Blind Or [...] Visited Or Received Treatment In A Hospital, Long-Term, Long-term Care, Or Other Health Care Facility [...] 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 [id number] Information not available 2024 Do you have [...] Recorded Time Tdap 6 completed Not Available [facility] 02/01/2024 09:51:56 Influenza, split virus, quadrivalent, preservative 6 completed Not Available [facility] 02/01/2024 09:51:56 Influenza, split virus, trivalent, preservative 7 completed Not Available [facility] 02/01/2024 09:51:57 COVID-19, mRNA, LNP-S, PF, 100 mcg/0.5mL dose or 50 mcg/0.25mL dose 1 completed Not Available [facility] 02/01/2024 09:51:58 COVID-19, mRNA, LNP-S, PF, 100 mcg/0.5mL dose or 50 mcg/0.25mL dose 1 completed Not Available [facility] 02/01/2024 09:51:58 MMR 1 completed Not Available [facility] 02/01/2024 09:51:58 MMR 1 completed Not Available [facility] 02/01/2024 09:51:59 Influenza, split virus, quadrivalent, preservative 1 completed Not Available [facility] 02/01/2024 09:52:00 COVID-19, mRNA, LNP-S, PF, 100 mcg/0.5mL dose or 50 mcg/0.25mL dose 1 completed Not Available [facility] 02/01/2024 09:52:00 Past Encounters Encounter ID Performer Location Encounter Start Date Encounter Closed Date Diagnosis/Indication Diagnosis SNOMED-CT Code Diagnosis ICD10 Code Diagnosis IMO Codes Diagnosis Note [id number] [facility] Office* [address] [address] 08/17/2025 10:17:05 08/17/2025 13:13:06 Physical examination 1232191 Z00.00 056163 Screening for malignant neoplasm of prostate 083300393 Z12.5 1910214 Impaired f asting glycemia 200486162 R73.01 237093 Nodule of lung 092088053 R91.1 BIOPSY NEGATIVE Gastro-eso phageal reflux disease with esophagitis 915002475 K21.00 HAD Endoscopy Adenomatou s polyp of colon 120235412 D12.6 [id number] COLONOSCOP Y 08/25/25 Viral scre ening status 244525665 Z11.59 361021 Health Concerns Section Related Observation LastModified by Organization Detai ls LastModified Time None Recorded Concern Status LastModified by Organization Details LastModified Time None Recorded Payers Encounter Date Sequence Insurance Name Policy Number Policy Clarke Covered Member ID Clarke Member ID Guarantor Name 08/17/2025 1 [place]: [facility] [id number] Eugene Guerrero [id number] Eugene Guerrero
--- OUTSIDE RECORDS SUMMARY | 2025-10-10 11:55 | XMS_ITS | Clinical Summary ---
Author Organization [facility] Address [address] [place] [address] Care Team Providers Care Fish And Wildlife Biologist Name Role Phone Bhavik HAQUE MD, [facility] Provi holden Allergies Active Allergy [...] CMIA Nonreactive Nonreactive 08/20/2021 12:33 PM EDT [facility] Comment:Results show no evid ence of infection by HIV 1/2. If clinically indicated, repeat CMIA or test by nucleic acid amplification. Blood specimen (specimen) Serum specimen / Unknown 08/17/2021 1:10 PM EDT 08/17/2021 1:34 PM EDT us O[facility] BLOOD ORDERABLES Final Resul t [facility] [address] [place] [address] from Last 3 Months or Most Recently Relevant to Health Maintenance Insurance [facility] PPO BLUE CROSS COMPREHENSIVE Advance Directives * Full Code (Latest Code Status on File) Date Activated Date Inactivated Comments 08/16/2021 6:57 PM Question Answer Comments Decision Thoroughly Discussed with: Patient Care Teams Fish And Wildlife Biologist Relationship Specialty Start Date End Date Chaka Gutierres III, MD PCP - General Internal Medicine 08/13/21
--- OUTSIDE RECORDS SUMMARY | 2025-10-10 11:55 | XMS_ITS | Clinical Summary ---
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
== END 2025-10-10 10:48 | disposition home or self-care (01) ==
LOC: HO.HGI 09:54
PROVIDERS: PCP Internal Medicine; Visit Provider Internal Medicine Gastroenterology
DX: K63.5 Polyp of colon (principal)
CPT/HCPCS: 99213